=== PATIENT | male | born 1945 | race Caucasian/White ===

== ENCOUNTER 2016-11-04 15:27 | Day surgery (SDC) | payer MEDICARE ==
[~2016-11-04 15:27] MED LIST: EPINEPHRINE INJ 1 MG/10 ML DISP.SYRIN ONE; FENTANYL CITRATE INJ/PF 100 MCG/2 ML AMPUL ONE; FLUMAZENIL INJ 0.5 MG/5 ML VIAL IV ONE; GLUCAGON,HUMAN RECOMB 1 MG INJ ONE; NALOXONE HCL INJ/PF 0.4 MG/1 ML SDV ONE
[2016-11-04] MEDS: MIDAZOLAM 2 MG/2 ML INJ ONE ×2 (16:41→16:45)
--- NOTE | 2016-11-04 17:31 | Operative Report ---
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 The upper endoscope was inserted into the esophagus under direct vision and advanced into the stomach. The duodenum was entered and examined to the second part. Endoscope was then slowly pulled out of the patient as the mucosa was examined into details. Patient tolerated procedure well. Findings Esophagus: There was a 1.5 cm tongue of columnar epithelium noted at the GE junction. This was ablated using the [id number] ablation catheter. 2 rounds of ablation was performed Antrum: Mild erythema with areas of atrophy. Biopsy was taken Body: Erythema with areas of atrophy Fundus: Normal Duodenum first part: Normal Duodenum second part: Normal Plan: Await pathology. Use pantoprazole twice a day, Carafate 4 times a day for the next 1 week and as needed Viscous Lidocaine. Repeat EGD in 2 months OPERATION: .
--- NOTE | 2016-11-04 18:11 | PDOC DISCHARGE SUMMARY ---
Discharge Summary (SDC) - Discharge Final Diagnosis: Saravia's esophagus and gastritis Date of Surgery: 11/04/16 Condition: Stable Forms: Sedation D/C Instructions, Discharge POC-Surgical Service Treatment or Instructions: Prescription for Carafate, viscous lidocaine and increased pantoprazole to twice daily Referrals: AMY BROWN MD [ACTIVE STAFF] - (Follow up with Dr Brown as instructed.) Respiratory Treatments at Home: Deep Breathing/Coughing Discharge Activity: Activity As Tolerated Home Care Assistance: None Needed Report the Following to Your Physician Immediately: Shortness of Breath, Nausea , Vomiting, Increase in Pain, Fever over 101 Degrees, Unusual Bleeding, Increased Soreness, IV Site Infection Signs
[2016-11-04 18:39] VITALS: BP 122/72
--- NOTE | 2016-12-09 17:19 | PDOC H&P ---
History of Present Illness Admission Date/PCP: Admission date 11/04/2016 History of Present Illness: RAMYA ADDISON JR is a 71 year old male who was brought in to endoscopy for EGD with radiofrequency ablation. He was recently diagnosed with short segment Saravia's esophagus indefinite for dysplasia. Past Medical History Cardiac Medical History: Reports: Coronary Artery Disease, Myocardial Infarction Denies: Hypertension - LOW PRESSURE Pulmonary Medical History: Denies: Asthma, Bronchitis, Chronic Obstructive Pulmonary Disease (COPD), Pneumonia Neurological Medical History: Denies: Seizures Musculoskeltal Medical History: Denies: Arthritis Hematology: Reports: Anemia - HX Social History Smoking Status: Former Smoker Family History Parental Family History Reviewed: No Children Family History Reviewed: NA Sibling(s) Family History Reviewed.: NA Medication/Allergy Home Medications: Aspirin [Aspirin 325 mg Tablet] 325 mg PO DAILY 11/03/16 Atorvastatin Calcium 80 mg PO DAILY 11/03/16 Bismuth Subsalicylate [Pepto-Bismol] 1 dose PO DAILY PRN 11/03/16 Calcium Carb/Magnesium Hydrox [Rolaids Chewable Tablet] 2 each PO ASDIR PRN 10/13 Calcium Carbonate [Tums Chewable 500 mg Tab.chew] 500 mg PO ASDIR PRN 11/03/16 Calcium Carbonate/Simethicone [Maalox Advanced Tab Chew] 2 tab.chew PO ASDIR PRN 11/03/16 Clopidogrel Bisulfate [Clopidogrel] 75 mg PO DAILY 11/03/16 Diphenhydramine HCl [Benadryl 25 mg Capsule] 25 mg PO BID 11/03/16 Ferrous Sulfate [Iron] 325 mg PO DAILY 11/03/16 Furosemide [Lasix] 40 mg PO BID 11/03/16 Gabapentin 2 cap PO TID 11/03/16 Insulin Glargine,Hum.rec.anlog [Lantus Solostar] 100 unit SQ DAILY 11/03/16 Liraglutide [Victoza 2-Jay] 1.8 mg SQ DAILY 11/03/16 Losartan Potassium 25 mg PO DAILY 11/03/16 Metformin HCl 500 mg PO BID 11/03/16 Methocarbamol 2 tab PO ASDIR PRN 11/03/16 Metoprolol Succinate 50 mg PO DAILY 11/03/16 Naproxen Sodium [Aleve] 220 mg PO ASDIR PRN 11/03/16 Nitroglycerin 0.4 mg SL ASDIR PRN 11/03/16 Pantoprazole Sodium 40 mg PO DAILY 11/03/16 Potassium Chloride [Klor-Con 10] 20 meq PO BID 11/03/16 Ranitidine HCl [Zantac] 150 mg PO DAILY 11/03/16 Ranolazine [Ranexa] 500 mg PO BID 11/03/16 Tamsulosin HCl 0.4 mg PO DAILY 11/03/16 Allergies/Adverse Reactions: CURAD ADHESIVE Allergy (Mild, Uncoded 11/04/16 15:29) RASHES Review of Systems All systems: reviewed and no additional remarkable complaints except as stated Physical Exam Vital Signs: Temp Pulse Resp BP Pulse Ox 97.5 F 52 L 16 122/72 95 11/04/16 17:20 11/04/16 17:50 11/04/16 17:50 11/04/16 17:50 11/04/16 17:50 Exam: General: Patient is alert and looks well. HEENT: There is no pallor or jaundice. PERRLA. Oropharynx normal Respiratory: No chest deformity. No respiratory distress. Chest wall palpitation was unremarkable. Breath sounds were normal Cardiovascular: Heart sounds 1 and 2 normal with no murmurs. Abdominal: Not distended. Soft and nontender. Liver and spleen not palpable. No ascites demonstrated. Bowel sounds active. Rectal examination was deferred. Extremities: No edema Neurological: Alert and oriented x4. Grossly nonfocal. Normal speech Skin: No significant rash Psychological: Normal affect Assessment & Plan - Diagnosis (1) Saravia's esophagus with dysplasia, unspecified Is this a current diagnosis for this admission?: Yes Plan: There will undergo an EGD with ablation
== END 2016-11-04 18:10 | disposition home or self-care (01) ==
LOC: END 15:27
PROVIDERS: ATTEND Internal Medicine Gastroenterology
PROC: 0DB68ZX Excision of Stomach, Via Natural or Artificial Opening Endoscopic, Diagnostic (ICD-10-PCS; principal; 2016-11-04 16:00)
PROC: 0D558ZZ Destruction of Esophagus, Via Natural or Artificial Opening Endoscopic (ICD-10-PCS; 2016-11-04 16:00)
DX: K22.719 Barrett's esophagus with dysplasia, unspecified (principal); K31.9 Disease of stomach and duodenum, unspecified; I25.10 Atherosclerotic heart disease of native coronary artery without angina pectoris; I25.2 Old myocardial infarction; Z87.891 Personal history of nicotine dependence; Z79.4 Long term (current) use of insulin; Z79.84 Long term (current) use of oral hypoglycemic drugs; Z79.899 Other long term (current) drug therapy
CPT/HCPCS: 43270; 43239; 82962; 88342 ×2; 88305 ×2; J2250; J3010; J0171; J1610; J2310; J3490

== ENCOUNTER 2017-03-10 15:08 | Day surgery (SDC) | payer MEDICARE ==
[2017-03-10] MEDS ORDERED: NALOXONE HCL INJ/PF 0.4 MG/1 ML SDV ONE (15:17)
[2017-03-10] MEDS ORDERED: FENTANYL CITRATE INJ/PF 100 MCG/2 ML AMPUL ONE (15:18)
[2017-03-10] MEDS ORDERED: FLUMAZENIL INJ 0.5 MG/5 ML VIAL ONE (15:18)
[2017-03-10] MEDS ORDERED: GLUCAGON,HUMAN RECOMB 1 MG INJ ONE (15:19)
[2017-03-10] MEDS ORDERED: EPINEPHRINE INJ 1 MG/10 ML DISP.SYRIN ONE (15:19)
[2017-03-10] MEDS ORDERED: ONDANSETRON HCL INJ/PF 4 MG/2 ML SDV ONE (15:20)
[2017-03-10] MEDS: MIDAZOLAM 2 MG/2 ML INJ ONE ×2 (16:27→16:33)
--- NOTE | 2017-03-10 17:09 | Operative Report ---
Operative Report DATE OF SURGERY: 03/10/17 Operative Report: Pre-op diagnosis: History of short segment Saravia's esophagus status post radiofrequency ablation Post-op diagnosis: Normal EGD Surgery: Esophagogastroduodenoscopy with biopsy Medications: Versed 2mg Fentanyl 50mcg IV push Tissue removed: Z line biopsy Procedure: After informed consent obtained from patient, the throat was sprayed with Hurricane and conscious sedation was achieved. The upper endoscope was inserted into the esophagus under direct vision and advanced into the stomach. The duodenum was entered and examined to the second part. Endoscope was then slowly pulled out of the patient as the mucosa was examined into details. Patient tolerated procedure well. Findings Esophagus: Normal Z-line was at 40 cm and appeared normal. Biopsies were taken from along the Z line Antrum: Normal Body: There was large amount of liquid and some food in the stomach suggestive of gastroparesis Fundus: Normal Duodenum first part: Normal Duodenum second part: Normal Plan: Await pathology. Continue PPI OPERATION: .
[2017-03-10 17:41] VITALS: BP 107/62
== END 2017-03-10 17:50 | disposition home or self-care (01) ==
LOC: END 15:08
PROVIDERS: ATTEND Internal Medicine Gastroenterology
PROC: 0DB58ZX Excision of Esophagus, Via Natural or Artificial Opening Endoscopic, Diagnostic (ICD-10-PCS; principal; 2017-03-10 15:30)
DX: K22.70 Barrett's esophagus without dysplasia (principal); K20.9 Esophagitis, unspecified; K21.9 Gastro-esophageal reflux disease without esophagitis; E11.9 Type 2 diabetes mellitus without complications; E78.00 Pure hypercholesterolemia, unspecified; I51.9 Heart disease, unspecified; Z79.84 Long term (current) use of oral hypoglycemic drugs; Z79.4 Long term (current) use of insulin; Z79.899 Other long term (current) drug therapy; Z86.010 Personal history of colon polyps
CPT/HCPCS: 43239; 82962; 88305 ×2; J2250; J3010; J0171; J1610; J2310; J2405; J3490

== ENCOUNTER 2017-06-28 22:22 | Inpatient (IN) | payer OTHER, MEDICARE ==
[2017-06-28] MEDS ORDERED: FUROSEMIDE INJ/PF 40 MG/4 ML SDV IV ONE (22:45)
--- NOTE | 2017-06-28 22:45 | ER Document Report ---
ED General - General Stated Complaint: SHORTNESS OF BREATH Time Seen by Provider: 06/28/17 22:44 Notes: Patient is a 71-year-old male with a past medical history of chronic kidney disease, CHF, coronary artery disease, hypotension, who presents with shortness of breath. Patient reports that for the past 4 days he has had progressively worsening shortness of breath that became acutely much worse over the last 3-4 hours. Symptoms triggered him to call EMS who placed patient on BiPAP, placed Nitropaste and transported him to the hospital. The patient reports that his breathing still does not feel completely normal but is much improved on positive pressure ventilation. He denies any history of similar symptoms in the past. He does note that he has gained 9 pounds of weight in the past 1 week. He continues to take Lasix 40 mg daily and notes medication compliance. He has not seen his primary care doctor regarding today's concerns. He denies any associated fever, chest pain, vomiting, focal weakness or numbness. He does note a dull, constant throbbing pain to his left shoulder since onset of his shortness of breath today. Nothing improves or worsens that symptom. TRAVEL OUTSIDE OF THE [place] IN LAST 30 DAYS: No - Related Data Allergies/Adverse Reactions: CURAD ADHESIVE Allergy (Mild, Uncoded 03/10/17 15:19) RASHES Past Medical History - General Information source: Patient - Social History Smoking Status: Never Smoker Frequency of alcohol use: None Drug Abuse: None Lives with: Spouse/Significant other Family History: Reviewed & Not Pertinent - Past Medical History Cardiac Medical History: Reports: Hx Coronary Artery Disease, Hx Heart Attack Denies: Hx Hypertension - LOW PRESSURE Pulmonary Medical History: Denies: Hx Asthma, Hx Bronchitis, Hx COPD, Hx Pneumonia Neurological Medical History: Denies: Hx Cerebrovascular Accident, Hx Seizures Musculoskeltal Medical History: Denies Hx Arthritis - Immunizations Hx Diphtheria, Pertussis, Tetanus Vaccination: Yes Hx Pneumococcal Vaccination: 03/30/11 Review of Systems - Review of Systems Notes: Constitutional: Negative for fever. HENT: Negative for sore throat. Eyes: Negative for visual changes. Cardiovascular: Negative for chest pain. Respiratory: Positive for shortness of breath. Gastrointestinal: Negative for abdominal pain, vomiting or diarrhea. Genitourinary: Negative for dysuria. Musculoskeletal: Positive for left shoulder pain Skin: Negative for rash. Neurological: Negative for headaches, weakness or numbness. 10 point ROS negative except as marked above and in HPI. Physical Exam - Vital signs Vitals: Resp Pulse Ox 18 99 06/28/17 22:30 06/28/17 22:30 Interpretation: Normal Notes: PHYSICAL EXAMINATION: GENERAL: Appears unwell, in moderate respiratory distress HEAD: Atraumatic, normocephalic. EYES: Pupils equal round and reactive to light, extraocular movements intact, sclera anicteric, conjunctiva are normal. ENT: nares patent, oropharynx clear without exudates. Mildly dry mucous membranes. NECK: Normal range of motion, supple without lymphadenopathy LUNGS: Crackles at the bases bilaterally. Moderate respiratory distress breathing approximately 20-30 times a minute. HEART: Regular tachycardia without murmurs ABDOMEN: Soft, nontender, normoactive bowel sounds. No guarding, no rebound. No masses appreciated. EXTREMITIES: Normal range of motion, 2+ pitting edema that is equal and symmetric in bilateral lower extremity some level of the knee NEUROLOGICAL: No focal neurological deficits. Moves all extremities spontaneously and on command. PSYCH: Normal mood, normal affect. SKIN: Warm, Dry, normal turgor, no rashes or lesions noted. Course - Re-evaluation Re-evalutation: 06/28/17 22:44 Patient presents in acute respiratory distress likely secondary to pulmonary edema as he has gained 9 pounds of weight in less than 1 week with a known history of CHF. On BiPAP patient's work of breathing is much improved current settings 12 on 6 with 35% FiO2. Patient has slightly diminished breath sounds at the bases bilaterally, scattered rales throughout. He denies any chest pain but does complain of some left shoulder pain. EKG without ischemic changes. Will proceed with labs, chest x-ray, continue on BiPAP, continue Nitropaste that is ready in place, give IV furosemide, and reassess frequently. Patient is critically ill at this time. 06/29/17 2300 Patient continues to have significantly improved work of breathing on BiPAP. Currently saturating 94% on the above settings. Will continue to monitor closely. 0010- Labs have returned showing elevated pro-BNP, CXR shows pulmonary edema consistent with the patient's presentation. Blood pressure remains within acceptable limits at this time point. Troponin is normal. Patient continues to be without chest pain, states the left shoulder pain has resolved. 0100-I will discuss this case with the hospitalist for admission as patient - Vital Signs Vital signs: Temp Pulse Resp BP Pulse Ox 18 99 06/28/17 22:30 06/28/17 22:30 - Laboratory Result Diagrams: 06/28/17 22:50 06/28/17 22:50 Laboratory results interpreted by me: 06/28/17 06/28/17 06/28/17 22:50 22:50 22:50 RBC 3.82 L Hgb 12.2 L Hct 37.2 L RDW 15.5 H Plt Count 120 L Seg Neutrophils % 88.2 H Lymphocytes % 5.2 L Absolute Lymphocytes 0.4 L Carbon Dioxide 31 H BUN 37 H Creatinine 1.39 H Est GFR (Non-Af Amer) 51 L Glucose 266 H NT-Pro-B Natriuret Pep 2890 H Total Protein 6.2 L Urine Glucose (UA) 06/29/17 00:19 RBC Hgb Hct RDW Plt Count Seg Neutrophils % Lymphocytes % Absolute Lymphocytes Carbon Dioxide BUN Creatinine Est GFR (Non-Af Amer) Glucose NT-Pro-B Natriuret Pep Total Protein Urine Glucose (UA) 150 H - Diagnostic Test Radiology reviewed: Image reviewed, Reports reviewed Radiology results interpreted by me: 06/29/17 01:13 Chest x-ray: Pulmonary edema bilaterally - EKG Interpretation by Me Additional EKG results interpreted by me: 06/29/17 01:13 Sinus rhythm. Rate 70. No ST elevations or depressions. QTC is 445. Critical Care Note - Critical Care Note Total time excluding time spent on procedures (mins): 36 Comments: Critical care time spent obtaining history from patient or surrogate, discussions with consultants, development of treatment plan with patient or surrogate, evaluation of patient's response to treatment, examination of patient , ordering and performing treatments and interventions, ordering and review of laboratory studies, re-evaluation of patient's condition, ordering and review of radiographic studies and review of old charts Discharge - Discharge Clinical Impression: Respiratory distress CHF exacerbation Qualifiers: Heart failure type: unspecified Qualified Code(s): I50.9 - Heart failure, unspecified Pulmonary edema Qualifiers: Chronicity: acute Qualified Code(s): J81.0 - Acute pulmonary edema Condition: Fair Disposition: ADMITTED INPATIENT Admitting Provider: Hospitalist - [place] [facility] Admitted: Telemetry
--- NOTE | 2017-06-28 22:53 | RADIOLOGY REPORT (SQ) ---
EXAM DESCRIPTION: CHEST SINGLE VIEW CLINICAL HISTORY: 71 years Male, shortness of breath COMPARISON: None. NUMBER OF VIEWS/TECHNIQUE: 1/AP LIMITATIONS: None. FINDINGS: Moderate interstitial markings, normal cardiac silhouette, and median sternotomy. IMPRESSION: Moderate interstitial markings; differential diagnosis includes pulmonary edema, atypical pneumonitis, and chronic interstitial lung disease.
[2017-06-28 23:09] LABS: ABSOLUTE LYMPHOCYTES (AUTO) 0.4 10^3/uL (0.5-4.7); ABSOLUTE MONOCYTES (AUTO) 0.4 10^3/uL (0.1-1.4); ABSOLUTE NEUT (AUTO) 6.3 10^3/uL (1.7-8.2); BASOPHILS % (AUTO) 0.1 % (0-2); EOSINOPHILS % (AUTO) 0.3 % (0-6); HEMATOCRIT 37.2 % (37.9-51.0); HEMOGLOBIN 12.2 g/dL (13.5-17.0); LYMPHOCYTES % (AUTO) 5.2 % (13-45); MEAN CORPUSCULAR HGB CONC 32.9 g/dL (32.0-36.0); MEAN CORPUSCULAR VOLUME 97 fl (80-97); MONOCYTES % (AUTO) 6.2 % (3-13); PLATELET COUNT 120 10^3/uL (150-450); RED BLOOD COUNT 3.82 10^6/uL (4.35-5.55); RED CELL DISTRIBUTION WIDTH 15.5 % (11.5-14.0); SEGMENTED NEUTROPHILS % (AUTO) 88.2 % (42-78); TOTAL CELLS COUNTED % (AUTO) 100 %; WHITE BLOOD COUNT 7.1 10^3/uL (4.0-10.5)
[2017-06-28 23:29] LABS: ALANINE AMINOTRANSFERASE 25 U/L (21-72); ALBUMIN 4.1 g/dL (3.5-5.0); ALKALINE PHOSPHATASE 74 U/L (38-126); ANION GAP 10 (5-19); ASPARTATE AMINO TRANSFERASE 21 U/L (17-59); BILIRUBIN,DIRECT 0.3 mg/dL (0.0-0.4); BILIRUBIN,TOTAL 0.3 mg/dL (0.2-1.3); BLOOD UREA NITROGEN 37 mg/dL (7-20); CALCIUM 9.2 mg/dL (8.4-10.2); CARBON DIOXIDE 31 mmol/L (22-30); CHLORIDE 100 mmol/L (98-107); CREATINE KINASE 135 U/L (55-170); GLUCOSE 266 mg/dL (75-110); POTASSIUM 4.4 mmol/L (3.6-5.0); TOTAL PROTEIN 6.2 g/dL (6.3-8.2)
[2017-06-28 23:42] LABS: CREATINE KINASE MB 1.49 ng/mL (<4.55); NT PRO BNP 2890 pg/mL (5-900)
[2017-06-28 23:44] LABS: TROPONIN I < 0.012 ng/mL
[2017-06-29 01:05] LABS: APPEARANCE,URINE CLEAR; BILIRUBIN,URINE NEGATIVE (NEGATIVE); COLOR,URINE YELLOW; GLUCOSE, URINE 150 mg/dL (NEGATIVE); KETONES,URINE NEGATIVE (NEGATIVE); LEUKOCYTE ESTERASE,URINE NEGATIVE (NEGATIVE); NITRITE,URINE NEGATIVE (NEGATIVE); PROTEIN,URINE NEGATIVE (NEGATIVE); URINE SPECIFIC GRAVITY 1.022; UROBILINOGEN,URINE NEGATIVE mg/dL (<2.0)
[2017-06-29] MEDS ORDERED: ENALAPRILAT DIHYDRATE INJ/PF 1.25 MG/1 ML SDV IV PRN (01:15)
[2017-06-29] MEDS ORDERED: DEXTROSE 40% GEL 15 GM TUBE PO PRN ×2 (01:15)
[2017-06-29] MEDS ORDERED: DEXTROSE 50%-WATER 25 GM/50 ML DISP.SYRIN IV PRN ×2 (01:15)
[2017-06-29] MEDS ORDERED: MAG HYDROX/AL HYDROX/SIMETH SUSP 30 ML UDCUP PO PRN (01:15)
[2017-06-29] MEDS ORDERED: GLUCAGON,HUMAN RECOMB 1 MG INJ IM PRN (01:15)
[2017-06-29] MEDS ORDERED: ATORVASTATIN CALCIUM 80 MG TABLET PO ONE ×2 (02:00→05:45)
[2017-06-29] MEDS ORDERED: TAMSULOSIN HCL 0.4 MG CAP.SR.24H PO ONE ×2 (02:00→06:00)
[2017-06-29 02:17] LABS: CREATINE KINASE MB 1.34 ng/mL (<4.55); TROPONIN I 0.015 ng/mL
--- NOTE | 2017-06-29 05:11 | EKG REPORT ---
SEVERITY:- ABNORMAL ECG - SINUS RHYTHM LOW VOLTAGE IN FRONTAL LEADS BORDERLINE R WAVE PROGRESSION, ANTERIOR LEADS NONSPECIFIC ST-T CHANGES LATERAL LEADS : Confirmed by: Lalo Keller MD 29-Jun-2017 05:11:22
[2017-06-29] MEDS: HEPARIN SOD (PORCINE) 5,000 UNIT/ML 1 ML SYRINGE SUBCUT SCH ×3 (05:28→21:36)
[2017-06-29 08:15] LABS: CREATINE KINASE MB 1.07 ng/mL (<4.55); TROPONIN I 0.026 ng/mL
[2017-06-29] MEDS ORDERED: ALBUTEROL SULFATE 0.083% NEB 2.5 MG/3 ML AMPUL NEB PRN (08:39)
[2017-06-29] MEDS ORDERED: BENZONATATE 100 MG CAPSULE PO PRN (08:42)
[2017-06-29] MEDS ORDERED: LOSARTAN POTASSIUM 25 MG TABLET PO SCH ×2 (10:00)
[2017-06-29] MEDS ORDERED: FUROSEMIDE INJ/PF 40 MG/4 ML SDV IV SCH (10:00)
[2017-06-29] MEDS: METOPROLOL SUCCINATE 50 MG TAB.SR.24H PO SCH (10:24)
[2017-06-29] MEDS: GABAPENTIN 300 MG CAPSULE PO SCH ×3 (10:24→18:47)
[2017-06-29] MEDS: LOSARTAN POTASSIUM 50 MG TABLET PO SCH (10:24)
[2017-06-29] MEDS: AMLODIPINE BESYLATE 5 MG TABLET PO SCH (10:24)
[2017-06-29] MEDS: AZITHROMYCIN 250 MG TABLET PO SCH (10:25)
[2017-06-29] MEDS: POTASSIUM CHLORIDE 10 MEQ TABLET.SA PO SCH ×2 (10:25→18:48)
[2017-06-29] MEDS: CLOPIDOGREL BISULFATE 75 MG TABLET PO SCH (10:26)
[2017-06-29] MEDS: ASPIRIN 325 MG TABLET PO SCH (10:26)
[2017-06-29] MEDS: LANSOPRAZOLE 30 MG TAB.RAP.DR PO SCH ×2 (10:27→18:47)
[2017-06-29] MEDS: GUAIFENESIN 600 MG TABLET.SA PO SCH ×2 (10:27→21:31)
[2017-06-29] MEDS: FUROSEMIDE INJ/PF 40 MG/4 ML SDV IV SCH ×2 (10:27→21:31)
[2017-06-29] MEDS: DOCUSATE SODIUM 100 MG CAPSULE PO SCH (10:33)
[2017-06-29] MEDS: NICOTINE 14 MG/24 HR PATCH.TD24 TD SCH (10:33)
--- NOTE | 2017-06-29 13:40 | PDOC PROGRESS REPORT ---
Subjective Progress Note for:: 06/29/17 Subjective:: Patient complains of shortness of breath. He admits having sleep apnea and not using the CPAP. Patient states that he feels congested in the chest but is not able to sleep bring the phlegm up. Review of systems All organ systems evaluated and negative except as seen subjective All significant laboratories and diagnostics have been reviewed Reason For Visit: HEART FAILURE EXACERBATION Physical Exam Vital Signs: Temp Pulse Resp BP Pulse Ox 23 H 129/63 H 93 06/29/17 07:01 06/29/17 07:01 06/29/17 07:01 Intake & Output 06/28/17 06/29/17 06/30/17 06:59 06:59 06:59 Weight 70.76 kg General appearance: PRESENT: cooperative, morbidly obese Head exam: PRESENT: atraumatic, normocephalic Eye exam: PRESENT: conjunctiva pink, EOMI, PERRLA Ear exam: PRESENT: normal external ear exam Mouth exam: PRESENT: moist Neck exam: PRESENT: full ROM. ABSENT: JVD, lymphadenopathy, tenderness Respiratory exam: PRESENT: crackles, decreased breath sounds. ABSENT: tachypnea , unlabored Cardiovascular exam: PRESENT: RRR. ABSENT: diastolic murmur, systolic murmur Vascular exam: PRESENT: normal capillary refill GI/Abdominal exam: PRESENT: normal bowel sounds, soft. ABSENT: tenderness Extremities exam: PRESENT: full ROM, +1 edema Musculoskeletal exam: PRESENT: ambulatory Neurological exam: PRESENT: alert, oriented to person, oriented to place, oriented to time, oriented to situation, CN II-XII grossly intact Psychiatric exam: PRESENT: unusual affect Skin exam: PRESENT: intact, normal color Results Impressions: Chest X-Ray 06/28/17 22:27 IMPRESSION: Moderate interstitial markings; differential diagnosis includes pulmonary edema, atypical pneumonitis, and chronic interstitial lung disease. Assessment & Plan - Diagnosis (1) COPD exacerbation Is this a current diagnosis for this admission?: Yes Plan: Patient will be placed on duo nebs, IV steroids, Mucinex and Zithromax (2) CHF exacerbation Qualifiers: Heart failure type: unspecified Qualified Code(s): I50.9 - Heart failure, unspecified Is this a current diagnosis for this admission?: Yes Plan: Will continue diuresis however suspect findings may relate to pulmonary hypertension. Echocardiogram has been ordered. Will order a CT of the chest to evaluate for pulmonary fibrosis (3) Obese abdomen Is this a current diagnosis for this admission?: Yes (4) Sleep apnea Qualifiers: Sleep apnea type: obstructive Qualified Code(s): G47.33 - Obstructive sleep apnea (adult) (pediatric) Is this a current diagnosis for this admission?: Yes Plan: Patient refuses use of CPAP at home. Patient is also not amenable to teaching - Time Time Spent with patient: 15-24 minutes Medications reviewed and adjusted accordingly: Yes Anticipated discharge: Home with Homehealth Within: within 72 hours - Inpatient Certification Based on my medical assessment, after consideration of the patient's comorbidities, presenting symptoms, or acuity I expect that the services needed warrant INPATIENT care.: Yes I certify that my determination is in accordance with my understanding of Medicare's requirements for reasonable and necessary INPATIENT services [42 CFR 412.3e].: Yes Medical Necessity: Need Close Monitoring Due to Risk of Patient Decompensation, Need For Continuous Telemetry Monitoring
[2017-06-29] MEDS: IPRATROPIUM/ALBUTEROL 0.5-2.5 MG/3 ML AMPUL NEB SCH ×2 (14:07→19:54)
[2017-06-29] MEDS: METHYLPREDNISOLONE INJ 40 MG/1 ML SDV IV SCH ×2 (14:56→21:31)
[2017-06-29 16:02] LABS: TROPONIN I 0.032 ng/mL
[2017-06-29] MEDS: TAMSULOSIN HCL 0.4 MG CAP.SR.24H PO SCH (21:30)
[2017-06-29] MEDS: ATORVASTATIN CALCIUM 80 MG TABLET PO SCH (21:31)
[2017-06-30 05:41] LABS: ABSOLUTE LYMPHOCYTES (AUTO) 0.4 10^3/uL (0.5-4.7); ABSOLUTE MONOCYTES (AUTO) 0.2 10^3/uL (0.1-1.4); ABSOLUTE NEUT (AUTO) 4.3 10^3/uL (1.7-8.2); BASOPHILS % (AUTO) 0.2 % (0-2); HEMATOCRIT 34.9 % (37.9-51.0); HEMOGLOBIN 11.4 g/dL (13.5-17.0); LYMPHOCYTES % (AUTO) 8.4 % (13-45); MEAN CORPUSCULAR HEMOGLOBIN 31.8 pg (27.0-33.4); MEAN CORPUSCULAR HGB CONC 32.7 g/dL (32.0-36.0); MEAN CORPUSCULAR VOLUME 97 fl (80-97); MONOCYTES % (AUTO) 4.1 % (3-13); PLATELET COUNT 103 10^3/uL (150-450); RED BLOOD COUNT 3.58 10^6/uL (4.35-5.55); RED CELL DISTRIBUTION WIDTH 15.8 % (11.5-14.0); SEGMENTED NEUTROPHILS % (AUTO) 87.3 % (42-78); TOTAL CELLS COUNTED % (AUTO) 100 %; WHITE BLOOD COUNT 4.9 10^3/uL (4.0-10.5)
[2017-06-30 06:04] LABS: ALANINE AMINOTRANSFERASE 34 U/L (21-72); ALBUMIN 3.5 g/dL (3.5-5.0); ALKALINE PHOSPHATASE 62 U/L (38-126); ANION GAP 10 (5-19); ASPARTATE AMINO TRANSFERASE 25 U/L (17-59); BILIRUBIN,DIRECT 0.4 mg/dL (0.0-0.4); BILIRUBIN,TOTAL 0.4 mg/dL (0.2-1.3); BLOOD UREA NITROGEN 39 mg/dL (7-20); CALCIUM 8.8 mg/dL (8.4-10.2); CARBON DIOXIDE 24 mmol/L (22-30); CHLORIDE 109 mmol/L (98-107); CHOLESTEROL 118.52 mg/dL (0-200); GLUCOSE 174 mg/dL (75-110); POTASSIUM 4.4 mmol/L (3.6-5.0); SODIUM 142.5 mmol/L (137-145); TRIGLYCERIDES 65 mg/dL (<150)
[2017-06-30 06:15] LABS: DIRECT LDL 50 mg/dL (<100)
[2017-06-30] MEDS: HEPARIN SOD (PORCINE) 5,000 UNIT/ML 1 ML SYRINGE SUBCUT SCH ×3 (06:42→21:38)
[2017-06-30] MEDS: METHYLPREDNISOLONE INJ 40 MG/1 ML SDV IV SCH ×3 (06:44→21:30)
--- NOTE | 2017-06-30 08:26 | Physician Advisory Note ---
Physician Advisor ProgressNote .: Pursuant to the plan for [facility], I have reviewed the medical record for this patient. Physician Advisor Statement: Nice documentation of the s/s of acute ___ CHF: acute pulmonary edema on CXR, SOB, crackles. - Nurses have also documented (+)WOOD, & orthopnea. Please consider documenting, if you agree: 1. "Acute Hypoxemic Respiratory Failure, due to ____, evidenced by labored breathing, tachypnea, & hypoxemia" (EMS found sat 88%, put on Bipap w/30% FiO2) 2. Status: pt not responding quickly to IV Lasix/Bipap, still SOB w/chest congestion, crackles, decreased BS, edema, tachypnea after 1 night of hospital level care. Appropriate for change to Inpatient status. 3. (I know you'll list "Acute ___ CHF", pulmonary HTN/pulmonary fibrosis if present based on ECHO/CT reports, as they become available.) Thanks, & have a great day! CK
[2017-06-30] MEDS: IPRATROPIUM/ALBUTEROL 0.5-2.5 MG/3 ML AMPUL NEB SCH ×3 (08:35→19:51)
--- NOTE | 2017-06-30 08:58 | RADIOLOGY REPORT (SQ) ---
EXAM DESCRIPTION: CT CHEST WITH COMPLETED DATE/TIME: 06/29/2017 7:41 pm REASON FOR STUDY: evaluate for interstitial lung disease COMPARISON: CT chest 06/28/2017 TECHNIQUE: CT scan of the chest performed using helical scanning technique with dynamic intravenous contrast injection. Images reviewed with lung, soft tissue and bone windows. Reconstructed coronal and sagittal MPR images reviewed. All images stored on PACS. All CT scanners at this facility use dose modulation, iterative reconstruction, and/or weight based d osing when appropriate to reduce radiation dose to as low as reasonably achievable (ALARA). [facility]: Dose Right [facility]: CareDose [facility]: Dose Right [facility]: Teradose 4D [facility]: [employer] CONTRAST TYPE AND DOSE: contrast/concentration: Isovue 370.00 mg/ml; Total Contrast Delivered: 75.0 ml; Total Saline Delivered: 50.0 ml RENAL FUNCTION: Creatinine 1.4 RADIATION DOSE: CT Rad equipment meets quality standard of care and radiation dose reduction techniq ues were employed. CTDIvol: 20.6 mGy. DLP: 868 mGy-cm. . LIMITATIONS: None. FINDINGS: LUNGS AND PLEURA: No acute infiltrates. No pleural effusions or pneumothorax. No definit e increased interstitial markings around the periphery of the lungs to suggest pulmonary fibrosis. 4 mm pleural-based noncalcified nodule posterior left lower lobe image 33. 1 year follow-up chest CT without contrast recommended to exclude growth or change in this probably benign finding. HILAR AND MEDIASTINAL STRUCTURES: No identified masses or abnormal nodes. HEART AND VASCULAR STRUCTURES: No aneurysm or dissection. No central pulmonary emboli. No pericardi al effusion. Post sternotomy and CABG. Very heavily radiopaque [place] coronary arteries from and ca lcifications HARDWARE: None in the chest. UPPER ABDOMEN: About 50% narrowing of the proximal SMA and celiac artery from arterial vascular visce ral calcifications. Fat density 2.5 cm left adrenal nodule, benign THYROID AND OTHER SOFT TISSUES: No masses. No adenopathy. BONES: No significant finding. OTHER: No other significant finding. IMPRESSION: No findings worrisome for interstitial lung disease. 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
--- NOTE | 2017-06-30 09:21 | XCELERA REPORT ---
[address] [address] Transthoracic Echocardiogram Report Name: RAMYA ADDISONJR Age: 71 yrs Gender: Male : 1945 Patient Status: Inpatient Patient Location: [address] [place] [address] Study Date: 06/29/2017 12:50 PM Height: 66 in Weight: 251 lb BSA: 2.2 m2 Procedure: A complete two-dimensional transthoracic echocardiogram was performed (2D, M-mode, spectral and color flow Doppler). The study was technically difficult with many images being suboptimal in quality. The study was technically limited with all images being suboptimal in quality. Reason For Study: volume overload Ordering Physician: CRISTIAN TEIXEIRA Performed By: Edith Orourke Interpretation Summary The study was technically difficult with many images being suboptimal in quality. The study was technically limited with all images being suboptimal in quality. Due to the poor quality of the echocardiogram, an assessment of left ventricular ejection fraction cannot be made. Consider additional methods to assess LVEF such as MUGA scan, CTA heart, cardiac MRI, EVERTON, etc. if clinically indicated. Best estimate mild depressed LV diastolic function could not be adequately assessed. Regional wall motion abnormalities cannot be excluded due to limited visualization. The right ventricle is not well visualized secondary to technical limitations Borderline right atrial enlargement. The left atrium is moderately dilated. There is no mitral regurgitation noted. There is no mitral valve stenosis. There is no aortic valve stenosis No aortic regurgitation is present. There is a trace or physiologic amount of tricuspid regurgitation Tricuspid regurgitation jet envelope not well defined to measure RV systolic pressure accurately. The pulmonic valve is not well visualized. The aortic root is not well visualized. The inferior vena cava appeared normal and decreased < 50% with respiration (RAP 10-15 mmHg) There is no pericardial effusion. MMode/2D Measurements & Calculations RVDd: 3.1 cm LVIDd: 5.6 cmFS: 24.3 % Ao root diam: 3.2 cm IVSd: 1.0 cm LVIDs: 4.3 cmEDV(Teich): 156.4 ml LVPWd: 1.0 cmESV(Teich): 81.8 ml Ao root area: 8.3 cm2 EF(Teich): 47.7 % LVOT diam: 2.0 cm LVOT area: 3.3 cm2 Doppler Measurements & Calculations MV E max qamar: MV dec slope: Ao V2 max: LV V1 max P.9 cm/sec 515.5 cm/sec2 148.3 cm/sec 4.4 mmHg MV A max qamar: MV dec time: Ao max PG: LV V1 max: 55.2 cm/sec 0.23 sec 8.8 mmHg 104.4 cm/sec MV E/A: 2.2 MIGUELANGEL(V,D): 2.3 cm2 PA V2 max: TR max qamar: 68.5 cm/sec 229.3 cm/sec PA max P.9 mmHgTR max P.2 mmHg Left Ventricle The left ventricle is borderline dilated. There is borderline concentric left ventricular hypertrophy. Due to the poor quality of the echocardiogram, an assessment of left ventricular ejection fraction cannot be made. Best estimate mild depressed. Consider additional methods to assess LVEF such as MUGA scan, CTA heart, cardiac MRI, EVERTON, etc. if clinically indicated. LV diastolic function could not be adequately assessed. Regional wall motion abnormalities cannot be excluded due to limited visualization. Right Ventricle The right ventricle is not well visualized secondary to technical limitations. Atria Borderline right atrial enlargement. The left atrium is moderately dilated. Interarterial septum not well visualized and not well dopplered. Cannot comment on ASD/PFO presence. Mitral Valve The mitral valve is not well visualized. There is no mitral valve stenosis. There is no mitral regurgitation noted. Aortic Valve The aortic valve is not well visualized secondary to technical limitations. There is no aortic valve stenosis. No aortic regurgitation is present. Tricuspid Valve The tricuspid valve is not well visualized secondary to technical limitations. There is no tricuspid stenosis. There is a trace or physiologic amount of tricuspid regurgitation. Tricuspid regurgitation jet envelope not well defined to measure RV systolic pressure accurately. Pulmonic Valve The pulmonic valve is not well visualized. Great Vessels The aortic root is not well visualized. The inferior vena cava appeared normal and decreased < 50% with respiration (RAP 10-15 mmHg). Effusions There is no pericardial effusion. : CRISTIAN TEIXEIRA > [place]
[2017-06-30] MEDS: GABAPENTIN 300 MG CAPSULE PO SCH ×3 (09:41→17:17)
[2017-06-30] MEDS: DOCUSATE SODIUM 100 MG CAPSULE PO SCH (09:41)
[2017-06-30] MEDS: LANSOPRAZOLE 30 MG TAB.RAP.DR PO SCH ×2 (09:41→17:18)
[2017-06-30] MEDS: CLOPIDOGREL BISULFATE 75 MG TABLET PO SCH (09:41)
[2017-06-30] MEDS: GUAIFENESIN 600 MG TABLET.SA PO SCH ×2 (09:42→21:30)
[2017-06-30] MEDS: POTASSIUM CHLORIDE 10 MEQ TABLET.SA PO SCH ×2 (09:43→17:18)
[2017-06-30] MEDS: LOSARTAN POTASSIUM 50 MG TABLET PO SCH (09:43)
[2017-06-30] MEDS: AMLODIPINE BESYLATE 5 MG TABLET PO SCH (09:43)
[2017-06-30] MEDS: FUROSEMIDE INJ/PF 40 MG/4 ML SDV IV SCH ×2 (09:44→21:35)
[2017-06-30] MEDS: METOPROLOL SUCCINATE 50 MG TAB.SR.24H PO SCH (09:44)
[2017-06-30] MEDS: AZITHROMYCIN 250 MG TABLET PO SCH (09:44)
[2017-06-30] MEDS: NICOTINE 14 MG/24 HR PATCH.TD24 TD SCH (09:45)
[2017-06-30] MEDS: ASPIRIN 325 MG TABLET PO SCH (09:45)
[2017-06-30] MEDS: NITROGLYCERIN 0.4 MG/TAB 25 TAB/BOTTLE SL PRN ×3 (10:45→11:00)
[2017-06-30] MEDS ORDERED: ISOSORBIDE MONONITRATE 30 MG TAB.ER.24H PO ONE (11:00)
[2017-06-30] MEDS ORDERED: MAG HYDROX/AL HYDROX/SIMETH SUSP 30 ML UDCUP PO ONE (15:30)
[2017-06-30] MEDS ORDERED: LIDOCAINE 2% VISCOUS SOLN 20 ML UDCUP PO ONE (15:30)
[2017-06-30] MEDS ORDERED: METOCLOPRAMIDE HCL ORAL SOLN 10 MG/10 ML UDCUP PO ONE (15:30)
[2017-06-30] MEDS ORDERED: NORMAL SALINE 500 ML IV ONE (16:00)
[2017-06-30] MEDS ORDERED: MORPHINE SULFATE 10 MG/ML INJ IV ONE (16:00)
[2017-06-30 16:20] LABS: CREATINE KINASE MB 1.24 ng/mL (<4.55); TROPONIN I 0.015 ng/mL
[2017-06-30] MEDS ORDERED: TRAMADOL HCL 50 MG TABLET PO PRN (16:27)
--- NOTE | 2017-06-30 17:16 | PDOC PROGRESS REPORT ---
Subjective Progress Note for:: 06/30/17 Subjective:: Patient relates that breathing is better. He stated that the phlegm was starting to come up. Later on complained to the nurse that when going to the bathroom he was having chest pain. At that time he was not using the oxygen. He also stated to the nurse that he uses nitroglycerin frequently at home. He had 2 bouts of shortness of breath. Review of systems All organ systems evaluated and negative except as seen subjective All significant laboratories and diagnostics have been reviewed Reason For Visit: HEART FAILURE EXACERBATION Physical Exam Vital Signs: Temp Pulse Resp BP Pulse Ox 98.4 F 63 21 H 125/47 L 96 06/30/17 03:37 06/30/17 03:37 06/30/17 03:37 06/30/17 03:37 06/30/17 03:37 Intake & Output 06/29/17 06/30/17 07/01/17 06:59 06:59 06:59 Intake Total 463 Output Total 1650 Balance -1187 Weight 113.7 kg General appearance: PRESENT: cooperative, morbidly obese Head exam: PRESENT: atraumatic, normocephalic Eye exam: PRESENT: conjunctiva pink, EOMI, PERRLA Ear exam: PRESENT: normal external ear exam Neck exam: PRESENT: carotid bruit. ABSENT: JVD, lymphadenopathy, tenderness Respiratory exam: PRESENT: crackles, decreased breath sounds Cardiovascular exam: PRESENT: RRR. ABSENT: diastolic murmur, systolic murmur Vascular exam: PRESENT: normal capillary refill GI/Abdominal exam: PRESENT: normal bowel sounds, soft. ABSENT: tenderness Extremities exam: PRESENT: full ROM, +1 edema Musculoskeletal exam: PRESENT: ambulatory Neurological exam: PRESENT: alert, awake, oriented to person, oriented to place , oriented to time, oriented to situation, CN II-XII grossly intact Psychiatric exam: PRESENT: appropriate affect, normal mood Skin exam: PRESENT: intact, normal color Results Laboratory Results: 06/30/17 04:34 06/30/17 04:34 06/30/17 06/30/17 04:34 04:34 WBC 4.9 RBC 3.58 L Hgb 11.4 L Hct 34.9 L MCV 97 MCH 31.8 MCHC 32.7 RDW 15.8 H Plt Count 103 L Seg Neutrophils % 87.3 H Lymphocytes % 8.4 L Monocytes % 4.1 Eosinophils % 0.0 Basophils % 0.2 Absolute Neutrophils 4.3 Absolute Lymphocytes 0.4 L Absolute Monocytes 0.2 Absolute Eosinophils 0.0 Absolute Basophils 0.0 Sodium 142.5 Potassium 4.4 Chloride 109 H Carbon Dioxide 24 Anion Gap 10 BUN 39 H Creatinine 1.20 Est GFR ( Amer) > 60 Est GFR (Non-Af Amer) > 60 Glucose 174 H Calcium 8.8 Magnesium 2.4 H Total Bilirubin 0.4 AST 25 ALT 34 Alkaline Phosphatase 62 Total Protein 6.0 L Albumin 3.5 Triglycerides 65 Cholesterol 118.52 LDL Cholesterol Direct 50 VLDL Cholesterol 13.0 HDL Cholesterol 47 06/29/17 06/29/17 06/29/17 07:38 07:38 14:53 Creatine Kinase 162 150 CK-MB (CK-2) 1.07 Troponin I 0.026 06/29/17 14:53 Creatine Kinase CK-MB (CK-2) 1.00 Troponin I 0.032 Impressions: Chest X-Ray 06/28/17 22:27 IMPRESSION: Moderate interstitial markings; differential diagnosis includes pulmonary edema, atypical pneumonitis, and chronic interstitial lung disease. Assessment & Plan - Diagnosis (1) COPD exacerbation Is this a current diagnosis for this admission?: Yes Plan: Patient will be placed on duo nebs, IV steroids, Mucinex and discontinue zithromax and change to levaquin in the vent may be causing GI upset (2) CHF exacerbation Qualifiers: Heart failure type: unspecified Qualified Code(s): I50.9 - Heart failure, unspecified Is this a current diagnosis for this admission?: Yes Plan: Will continue diuresis however suspect findings may relate to pulmonary hypertension. Echocardiogram has been on to terminate due to body habitus. CT of the chest noted. Will add midodrine since blood pressure on the low side (3) Obese abdomen Is this a current diagnosis for this admission?: Yes Plan: Contributing to hypoventilatory syndrome (4) Sleep apnea Qualifiers: Sleep apnea type: obstructive Qualified Code(s): G47.33 - Obstructive sleep apnea (adult) (pediatric) Is this a current diagnosis for this admission?: Yes Plan: Patient refuses use of CPAP at home. Patient is also not amenable to teaching (5) Acute hypoxemic respiratory failure Is this a current diagnosis for this admission?: Yes Plan: Continue oxygen supplementation and wean off as tolerated (6) Chest pain Qualifiers: Chest pain type: precordial pain Qualified Code(s): R07.2 - Precordial pain Is this a current diagnosis for this admission?: Yes Plan: Order troponins 3 and nuclear stress test in a.m. (7) GERD (gastroesophageal reflux disease) Qualifiers: Esophagitis presence: esophagitis presence not specified Qualified Code(s) : K21.9 - Gastro-esophageal reflux disease without esophagitis Is this a current diagnosis for this admission?: Yes Plan: Continue PPI (8) Superior mesenteric artery atherosclerosis Is this a current diagnosis for this admission?: Yes Plan: Likely may be contributing to complaints. He will need to be evaluated by the vascular surgeon once improving respiratory status - Time Time Spent with patient: 25-34 minutes Medications reviewed and adjusted accordingly: Yes Anticipated discharge: Home with Homehealth Within: within 72 hours - Inpatient Certification Based on my medical assessment, after consideration of the patient's comorbidities, presenting symptoms, or acuity I expect that the services needed warrant INPATIENT care.: Yes I certify that my determination is in accordance with my understanding of Medicare's requirements for reasonable and necessary INPATIENT services [42 CFR 412.3e].: Yes Medical Necessity: Need Close Monitoring Due to Risk of Patient Decompensation, Need For Continuous Telemetry Monitoring, Need for Nebulizer Therapy and Monitoring of Response, Need for IV Antibiotics
[2017-06-30] MEDS: RANOLAZINE 500 MG TAB.SR.12H PO SCH (17:18)
[2017-06-30] MEDS ORDERED: AMLODIPINE BESYLATE 5 MG TABLET PO SCH (17:34)
[2017-06-30] MEDS ORDERED: MIDODRINE HCL 5 MG TABLET PO SCH (18:00)
[2017-06-30] MEDS: INSULIN LISPRO 100 UNIT/ML 3 ML VIAL SUBCUT PRN (18:06)
--- NOTE | 2017-06-30 19:11 | PDOC TRANSFER SUMMARY ---
General Admission Date/PCP: 06/30/17 11:17 Admission Date: 06/29/17 Resuscitation Status: Full Code - Transfer Diagnosis (1) Unstable angina pectoris due to coronary arteriosclerosis Is this a current diagnosis for this admission?: Yes (2) CHF exacerbation Is this a current diagnosis for this admission?: Yes (3) Acute hypoxemic respiratory failure Is this a current diagnosis for this admission?: Yes (4) COPD exacerbation Is this a current diagnosis for this admission?: Yes (5) Obese abdomen Is this a current diagnosis for this admission?: Yes (6) Sleep apnea Is this a current diagnosis for this admission?: Yes (7) GERD (gastroesophageal reflux disease) Is this a current diagnosis for this admission?: Yes (8) Superior mesenteric artery atherosclerosis Is this a current diagnosis for this admission?: Yes (9) Diabetes Is this a current diagnosis for this admission?: Yes (10) CAD (coronary artery disease) Is this a current diagnosis for this admission?: Yes (11) Tobacco abuse Is this a current diagnosis for this admission?: Yes (12) Anemia Is this a current diagnosis for this admission?: Yes (13) Thrombocytopenia Is this a current diagnosis for this admission?: Yes - Transfer Medications Home Medications: Aspirin [Aspirin 325 mg Tablet] 325 mg PO DAILY 11/03/16 Atorvastatin Calcium 80 mg PO QHS 11/03/16 Clopidogrel Bisulfate [Clopidogrel] 75 mg PO DAILY 11/03/16 Diphenhydramine HCl [Benadryl 25 mg Capsule] 50 mg PO BID 11/03/16 Ferrous Sulfate [Iron] 325 mg PO DAILY 11/03/16 Furosemide [Lasix] 40 mg PO BID 11/03/16 Gabapentin 2 cap PO Q8 11/03/16 Insulin Glargine,Hum.rec.anlog [Lantus Solostar] 35 unit SQ QHS 11/03/16 Liraglutide [Victoza 2-Jay] 1.8 mg SQ DAILY 11/03/16 Losartan Potassium 25 mg PO DAILY 11/03/16 Metformin HCl 500 mg PO BID 11/03/16 Methocarbamol 2 tab PO Q8 11/03/16 Nitroglycerin 0.4 mg SL ASDIR PRN 11/03/16 Pantoprazole Sodium 40 mg PO DAILY 11/03/16 Potassium Chloride [Klor-Con 10] 20 meq PO Q12 11/03/16 Ranitidine HCl [Zantac] 150 mg PO DAILY 11/03/16 Ranolazine [Ranexa] 500 mg PO Q12 11/03/16 Tamsulosin HCl 0.4 mg PO QHS 11/03/16 Donepezil HCl [Aricept] 10 mg PO DAILY 06/29/17 Finasteride [Proscar 5 mg Tablet] 5 mg PO DAILY 06/29/17 Ipratropium [place] [Atrovent 0.06% Nasal Singer] 1 spray NASL DAILY 06/29/17 Sucralfate [Carafate 1 gm Tablet] 1 gm PO ACHS 06/29/17 Tramadol HCl [Ultram 50 mg Tablet] 50 mg PO Q4HP PRN 06/29/17 Transfer Medications: Current Medications Al Hydrox/Mg Hydrox/Simethicone (Maalox Plus Susp 30 Udcup) 30 ml PO Q4HP PRN PRN Reason: HEARTBURN Stop: 07/29/17 01:14 Albuterol/Ipratropium (Duoneb 3 Ml Ampul) 3 ml NEB [id number] [facility] Stop: 07/29/17 13:59 Last Admin: 06/30/17 13:58 Dose: 3 ml Amlodipine Besylate (Norvasc 2.5 Mg Tablet) 2.5 mg PO DAILY [facility] Stop: 07/31/17 09:59 Aspirin (Aspirin 325 Mg Tablet) 325 mg PO DAILY [facility]ANG Stop: 07/29/17 09:59 Last Admin: 06/30/17 09:45 Dose: 325 mg Atorvastatin Calcium (Lipitor 80 Mg Tablet) 80 mg PO QHS [facility] Stop: 07/29/17 21:59 Last Admin: 06/29/17 21:31 Dose: 80 mg Benzonatate (Tessalon Perles 100 Mg Capsule) 100 mg PO Q8HP PRN PRN Reason: COUGH Stop: 07/29/17 08:41 Clopidogrel Bisulfate (Plavix 75 Mg Tablet) 75 mg PO DAILY [facility] Stop: 07/29/17 09:59 Last Admin: 06/30/17 09:41 Dose: 75 mg Dextrose (Dextrose Inj 50% Syringe (25 Gm/50 Ml)) 12.5 gm IV PRN PRN; Protocol PRN Reason: FOR BG 50-69 IN ALERT PATIENT Stop: 07/29/17 01:14 Dextrose (Dextrose Inj 50% Syringe (25 Gm/50 Ml)) 25 gm IV PRN PRN; Protocol PRN Reason: PER PROTOCOL Stop: 07/29/17 01:14 Docusate Sodium (Colace 100 Mg Capsule) 100 mg PO DAILY [facility] Stop: 07/29/17 09:59 Last Admin: 06/30/17 09:41 Dose: 100 mg Ferrous Sulfate (Feosol 325 Mg Tablet) 325 mg PO DAILY [facility] Stop: 07/31/17 09:59 Furosemide (Lasix Inj/Pf 40 Mg/4 Ml Sdv) 40 mg IV Q12 DANG Stop: 07/29/17 09:59 Last Admin: 06/30/17 09:44 Dose: 40 mg Gabapentin (Neurontin 300 Mg Capsule) 600 mg PO TID DANG Stop: 07/29/17 09:59 Last Admin: 06/30/17 17:17 Dose: 600 mg Glucagon (Glucagen Inj 1 Mg Vial) 1 mg IM PRN PRN; Protocol PRN Reason: Evaluate for BG < 70 Stop: 07/29/17 01:14 Glucose (Glutose 40% Gel 15 Gm Tube) 15 gm PO PRN PRN; Protocol PRN Reason: FOR BG 50-69 IN ALERT PATIENT Stop: 07/29/17 01:14 Glucose (Glutose 40% Gel 15 Gm Tube) 30 gm PO PRN PRN; Protocol PRN Reason: FOR BG < 50 IN ALERT PATIENT Stop: 07/29/17 01:14 Guaifenesin (Mucinex Sr 600 Mg Tablet.Sa) 1,200 mg PO Q12 DANG Stop: 07/29/17 09:59 Last Admin: 06/30/17 09:42 Dose: 1,200 mg Heparin Sodium (Porcine) (Heparin Inj 5,000 Units/Ml 1 Ml Syringe) 5,000 unit SUBCUT Q8 DANG Stop: 07/29/17 05:59 Last Admin: 06/30/17 13:20 Dose: Not Given Insulin Human Lispro (Humalog Insulin 100 Unit/1 Ml 3 Ml Vial) 0 - 12 unit SUBCUT ACP PRN; Protocol PRN Reason: PER PROTOCOL Stop: 07/29/17 01:14 Last Admin: 06/30/17 18:06 Dose: 6 unit Lansoprazole (Prevacid 30 Mg Odt Tablet) 40 mg PO BID [facility] Stop: 07/29/17 09:59 Last Admin: 06/30/17 17:18 Dose: 40 mg Levofloxacin (Levaquin 750 Mg Tablet) 750 mg PO DAILY [facility]ANG Stop: 07/08/17 09:59 Losartan Potassium (Cozaar 50 Mg Tablet) 50 mg PO DAILY DANG Stop: 07/31/17 09:59 Methocarbamol (Robaxin 500 Mg Tablet) 1,000 mg PO Q8 DANG Stop: 07/30/17 21:59 Methylprednisolone Sodium Succinate (Solu-Medrol Inj/Pf 40 Mg/1 Ml Sdv) 40 mg IV Q8 DANG Stop: 07/29/17 13:59 Last Admin: 06/30/17 14:30 Dose: 40 mg Metoprolol Succinate (Toprol Xl 50 Mg Tab.Sr) 50 mg PO DAILY DANG Stop: 07/29/17 09:59 Last Admin: 06/30/17 09:44 Dose: 50 mg Midodrine (Proamatine 5 Mg Tablet) 5 mg PO TID DANG Stop: 07/30/17 17:59 Last Admin: 06/30/17 17:45 Dose: Not Given Nicotine (Nicoderm 14 Mg/24 Hr Transdermal Patch) 1 each TD DAILY [facility]ANG Stop: 07/29/17 09:59 Last Admin: 06/30/17 09:45 Dose: Not Given Nitroglycerin (Nitrostat 0.4 Mg (1/150 Gr) Tabs 25/Bottle) 1 tab SL Q5MP PRN PRN Reason: FOR CHEST PAIN Stop: 07/29/17 01:14 Last Admin: 06/30/17 11:00 Dose: 1 tab Potassium Chloride (Klor-Con 10 Meq Tablet.Sa) 20 meq PO BID [facility]ANG Stop: 07/29/17 09:59 Last Admin: 06/30/17 17:18 Dose: 20 meq Ranolazine (Ranexa 500 Mg Tab.Sr) 500 mg PO Q12A [facility]ANG Stop: 07/30/17 17:59 Last Admin: 06/30/17 17:18 Dose: 500 mg Sodium Chloride (Saline Flush 2.5 Ml Monoject Prefil Syrin) 2.5 ml IV Q8 DANG Stop: 07/29/17 05:59 Last Admin: 06/30/17 14:30 Dose: 2.5 ml Sucralfate (Carafate 1 Gm Tablet) 1 gm PO ACHS [facility]ANG Stop: 07/30/17 21:59 Tamsulosin HCl (Flomax 0.4 Mg Cap.Sr) 0.4 mg PO QHS DANG Stop: 07/29/17 21:59 Last Admin: 06/29/17 21:30 Dose: 0.4 mg Tramadol HCl (Ultram 50 Mg Tablet) 50 mg PO Q4HP PRN PRN Reason: FOR PAIN Stop: 07/07/17 16:26 - Allergies Allergies/Adverse Reactions: CURAD ADHESIVE Allergy (Mild, Uncoded 03/10/17 15:19) RASHES - Diet/Activity Discharge Diet: Cardiac, Diabetic Discharge Activity: Activity As Tolerated Hospital Course Hospital Course: Patient is a 71-year-old male with a past medical history of chronic kidney disease, CHF, coronary artery disease, hypertension and presented to ED via ambulance complaining of shortness of breath. Patient reported that for 4 days he had progressive worsening of shortness of breath that became acutely much worse. Symptoms triggered him to call EMS who placed patient on BiPAP, nitropaste and transported him to the hospital. The patient reported improvement of his breathing when was placed on BiPaP. In addition to initial complaints he referred that he was having productive cough of whitish phlegm. Patient also continues smoking. He admitted having a history of sleep apnea however he did not use CPAP. Actually he reported that he was already tired of the BiPAP machine that was used while he was in emergency room.. He reported that he had gained 9 pounds of weight in the past week. He continued to take Lasix 40 mg daily and noted medication compliance. He had not seen his primary care doctor regarding his concerns. He denied patient complained to our service of having productive cough. Patient also admitted smoking and not using the CPAP machine. He also related that he did not want to continue using BiPAP. any associated fever, chest pain, vomiting, focal weakness or numbness. He complained of a dull, constant throbbing pain to his left shoulder since onset of his shortness of breath. Nothing improved or worsened that symptom. Patient was admitted under hospitalist service. For the treatment of congestive heart failure an echocardiogram was ordered. It was not diagnostic due to body habitus. We continued diuresis and blood pressure control. We found out on the day of discharge after talking to family that he has a prior history of an EF of 30%. Interestingly patient is on no AICD. On the day of transfer patient I related that his breathing status improved with treatment rendered which included DuoNeb's, IV steroids, Mucinex and oral antibiotic treatment as well. He was requesting to wean him off oxygen. He went to the bathroom without oxygen and he began experiencing chest pain with radiation to his neck area. At that point in time patient admitted that he had been having bouts of chest pain at home for which he had been taking nitroglycerin on a regular basis. Patient was treated with nitroglycerin with some improvement. Unfortunately pain return back. Troponin was ordered and initial troponin level was normal. Anticipation was for patient to undergo a nuclear stress test the following day. Patient became tachycardic after was treated with nitroglycerin and Imdur. Patient admitted that the chest pain felt like in the past when he had heart attack. Family was at bedside also referred that patient had been through normal stress tests then to find out blockages when undergoing heart cath. We also had order CT of the chest to evaluate for pulmonary fibrosis which was ruled out. 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 Due to comorbidities and lack of interventional cardiology support and dealing with an unstable angina picture we are considering transferring to a tertiary hospital. Physical Exam Vital Signs: Temp Pulse Resp BP Pulse Ox 97.8 F 129 H 19 115/61 98 06/30/17 16:32 06/30/17 16:32 06/30/17 16:32 06/30/17 16:32 06/30/17 16:32 Intake & Output 06/29/17 06/30/17 07/01/17 06:59 06:59 06:59 Intake Total 620 Balance 620 Weight 113.7 kg General appearance: PRESENT: no acute distress, cooperative, morbidly obese Head exam: PRESENT: atraumatic, normocephalic Eye exam: PRESENT: conjunctiva pink, EOMI, PERRLA Ear exam: PRESENT: normal external ear exam Mouth exam: PRESENT: moist Neck exam: PRESENT: full ROM. ABSENT: JVD, lymphadenopathy, tenderness Respiratory exam: PRESENT: clear to auscultation ashwin, decreased breath sounds Cardiovascular exam: PRESENT: tachycardia. ABSENT: diastolic murmur, systolic murmur Vascular exam: PRESENT: normal capillary refill GI/Abdominal exam: PRESENT: normal bowel sounds, soft. ABSENT: tenderness Extremities exam: PRESENT: full ROM, +2 edema Musculoskeletal exam: PRESENT: ambulatory Neurological exam: PRESENT: alert, awake, oriented to person, oriented to place , oriented to time, oriented to situation, CN II-XII grossly intact Psychiatric exam: PRESENT: appropriate affect, normal mood Skin exam: PRESENT: intact, normal color Results Laboratory Results: 06/30/17 06/30/17 15:18 15:18 Creatine Kinase 119 CK-MB (CK-2) 1.24 Troponin I 0.015 Impressions: Chest X-Ray 06/28/17 22:27 IMPRESSION: Moderate interstitial markings; differential diagnosis includes pulmonary edema, atypical pneumonitis, and chronic interstitial lung disease. Chest CT 06/29/17 00:00 IMPRESSION: No findings worrisome for interstitial lung disease. 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
[2017-06-30] MEDS ORDERED: METOPROLOL SUCCINATE 50 MG TAB.SR.24H PO ONE (20:15)
[2017-06-30] MEDS ORDERED: ENOXAPARIN SODIUM INJ 120 MG/0.8 ML DISP.SYRIN SUBCUT ONE (20:15)
--- NOTE | 2017-06-30 20:38 | PDOC CONSULTATION ---
Consultation Consult Date: 06/30/17 Attending physician:: HARMONY LOBO Consult reason:: Chest pain History of Present Illness Admission Date/PCP: 06/30/17 11:17 Patient complains of: Chest pain and shortness of breath History of Present Illness: RAMYA ADDISON JR is a 71 year old male with a past medical history of chronic kidney disease, CHF, coronary artery disease, hypotension, who presents with shortness of breath. Patient reports that for the past 4 days he has had progressively worsening shortness of breath that became acutely much worse over the last 3-4 hours. Symptoms triggered him to call EMS who placed patient on BiPAP, placed Nitropaste and transported him to the hospital. The patient reports that his breathing still does not feel completely normal but is much improved on positive pressure ventilation. He denies any history of similar symptoms in the past. He does note that he has gained 9 pounds of weight in the past 1 week. He continues to take Lasix 40 mg daily and notes medication compliance. He has not seen his primary care doctor regarding today's concerns. He denies any associated fever, chest pain, vomiting, focal weakness or numbness. He does note a dull, constant throbbing pain to his left shoulder since onset of his shortness of breath today. Nothing improves or worsens that symptom. Patient and family gives significant history of coronary artery disease having had coronary artery bypass graft surgery more than 10 years ago. Patient also had numerous stents. 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 While in the hospital he developed chest pain which responded to nitroglycerin. Patient now has intermittent chest pain. Patient also noted to be tachycardic. On EKG he is noted to have atrial flutter with somewhat of a rapid ventricular response. Patient had a 2D echocardiogram which was technically difficult and limited and his ejection fraction was felt to be depressed. I have been asked to evaluate patient and help with management. Past Medical History Cardiac Medical History: Reports: Coronary Artery Disease, Myocardial Infarction Denies: Hypertension - LOW PRESSURE Pulmonary Medical History: Denies: Asthma, Bronchitis, Chronic Obstructive Pulmonary Disease (COPD), Pneumonia Neurological Medical History: Denies: Seizures Endocrine Medical History: Reports: Diabetes Mellitus Type 2 Renal/ Medical History: Reports: Chronic Kidney Disease Musculoskeltal Medical History: Denies: Arthritis Psychiatric Medical History: Denies: Depression Hematology: Reports: Anemia - HX Past Surgical History Past Surgical History: Reports: Cardiac Catheterization, Coronary Artery Bypass Graft, Coronary Stent, Other - Numerous coronary stents Social History Information Source: Patient Lives with: Spouse/Significant other Smoking Status: Never Smoker Frequency of Alcohol Use: None Hx Recreational Drug Use: No Hx Prescription Drug Abuse: No - Advance Directive Resuscitation Status: Full Code Surrogate healthcare decision maker:: Patient daughters at the surrogate decision-maker Family History Family History: Hypertension Parental Family History Reviewed: Yes Children Family History Reviewed: Yes Sibling(s) Family History Reviewed.: Yes Medication/Allergy Home Medications: Aspirin [Aspirin 325 mg Tablet] 325 mg PO DAILY 11/03/16 Atorvastatin Calcium 80 mg PO QHS 11/03/16 Clopidogrel Bisulfate [Clopidogrel] 75 mg PO DAILY 11/03/16 Diphenhydramine HCl [Benadryl 25 mg Capsule] 50 mg PO BID 11/03/16 Ferrous Sulfate [Iron] 325 mg PO DAILY 11/03/16 Furosemide [Lasix] 40 mg PO BID 11/03/16 Gabapentin 2 cap PO Q8 11/03/16 Insulin Glargine,Hum.rec.anlog [Lantus Solostar] 35 unit SQ QHS 11/03/16 Liraglutide [Victoza 2-Jay] 1.8 mg SQ DAILY 11/03/16 Losartan Potassium 25 mg PO DAILY 11/03/16 Metformin HCl 500 mg PO BID 11/03/16 Methocarbamol 2 tab PO Q8 11/03/16 Nitroglycerin 0.4 mg SL ASDIR PRN 11/03/16 Pantoprazole Sodium 40 mg PO DAILY 11/03/16 Potassium Chloride [Klor-Con 10] 20 meq PO Q12 11/03/16 Ranitidine HCl [Zantac] 150 mg PO DAILY 11/03/16 Ranolazine [Ranexa] 500 mg PO Q12 11/03/16 Tamsulosin HCl 0.4 mg PO QHS 11/03/16 Donepezil HCl [Aricept] 10 mg PO DAILY 06/29/17 Finasteride [Proscar 5 mg Tablet] 5 mg PO DAILY 06/29/17 Ipratropium [place] [Atrovent 0.06% Nasal [place]] 1 spray NASL DAILY 06/29/17 Sucralfate [Carafate 1 gm Tablet] 1 gm PO ACHS 06/29/17 Tramadol HCl [Ultram 50 mg Tablet] 50 mg PO Q4HP PRN 06/29/17 Allergies/Adverse Reactions: CURAD ADHESIVE Allergy (Mild, Uncoded 03/10/17 15:19) RASHES Review of Systems Review of Systems: Please see history of present illness and past medical history as wall. Constitutional: No fever or chills reported. Head : No recent chronic headaches, recent head injury. Eyes: No recent eye pain, diplopia, redness, discharge, acute visual changes. Ears: No recent chronic ear pain, acute hearing loss, ear discharge. Oral cavity: No recent ulcerations, bleeding, oral cavity discomfort. Neck: No recent acute neck pain reported. Hematologic: No recent easy bruising or bleeding or hematologic malignancy reported. Lymphatic: No recent lymphatic malignancy, chronic lymphadenopathy reported yet Cardiovascular system review: See history of present illness. Please see HPI for details Respiratory system review: No recent chronic cough, hemoptysis, blood clots in the lungs reported. Shortness of breath on exertion Gastrointestinal system review: Negative for any recent acute or chronic abdominal pain, hematemesis, melena, recent change in bowel habits. Genitourinary system review: No recent acute or chronic hematuria, flank pain, UTI etc. reported. Skin system review: Negative for any recent abnormal bruising, no rash, no pruritus reported. Neurologic: No prior history of strokes, mini strokes, seizure disorder. Psychologic: No history of major psychosis or major depression reported. Musculoskeletal: Minor aches and pains reported. No acute joint swelling reported. Endocrine: No recent polyuria, polydipsia, recent heat or cold intolerance. Physical Exam Vital Signs: Temp Pulse Resp BP Pulse Ox 97.8 F 129 H 19 115/61 98 06/30/17 16:32 06/30/17 16:32 06/30/17 16:32 06/30/17 16:32 06/30/17 16:32 Intake & Output 06/29/17 06/30/17 07/01/17 06:59 06:59 06:59 Intake Total 1124 Balance 1124 Weight 113.7 kg Exam: GENERAL: well-nourished and in no acute distress. Alert and oriented x3 HEAD: Atraumatic, normocephalic. Patient is edentulous EYES: Pupils equal round and reactive to light, extraocular movements intact, sclera anicteric, conjunctiva are normal. ENT: TMs normal, nares patent, oropharynx clear without exudates. Moist mucous membranes. No oral ulcerations or bleeding gums noted NECK: supple without lymphadenopathy. Trachea is central. No cervical or axillary lymphadenopathy noted. Carotids are 2+, JVD difficult to evaluate but probably normal LUNGS: Respiration seems nonlabored, no significant accessory muscle action noted. Few bibasilar fine crackles are noted. No wheezes rales or rhonchi noted. No significant dullness noted on percussion. CHEST: Palpation of the chest wall shows no significant chest wall tenderness. No other significant abnormalities noted. 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 ABDOMEN: Soft, no significant tenderness appreciated, normoactive bowel sounds. No guarding, no rebound. No rigidity noted . No masses appreciated. EXTREMITIES: Pedal pulses are 1-2+, no calf tenderness noted. No clubbing or cyanosis. negative pedal edema noted NEUROLOGICAL: Focused neurological exam showed no significant neurologic deficit. Normal speech, no focal weakness appreciated. PSYCH: Normal mood, normal affect. Judgment and insight within normal limits. SKIN: No significant ecchymosis, skin is noted to be warm. MUSCULOSKELETAL EXAM: No significant acute joint swelling noted. Results Laboratory Results: 06/30/17 06/30/17 15:18 15:18 Creatine Kinase 119 CK-MB (CK-2) 1.24 Troponin I 0.015 EKG Comments: Shows atrial flutter with 2-1 conduction. Impressions: Chest X-Ray 06/28/17 22:27 IMPRESSION: Moderate interstitial markings; differential diagnosis includes pulmonary edema, atypical pneumonitis, and chronic interstitial lung disease. Chest CT 06/29/17 00:00 IMPRESSION: No findings worrisome for interstitial lung disease. 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 Assessment & Plan - Diagnosis (1) Unstable angina pectoris due to coronary arteriosclerosis Is this a current diagnosis for this admission?: Yes (2) Atrial flutter Qualifiers: Atrial flutter type: atypical Qualified Code(s): I48.4 - Atypical atrial flutter Is this a current diagnosis for this admission?: Yes (3) Hypertension Qualifiers: Hypertension type: essential hypertension Qualified Code(s): I10 - Essential (primary) hypertension Is this a current diagnosis for this admission?: Yes (4) Dyslipidemia Is this a current diagnosis for this admission?: Yes (5) CAD (coronary artery disease) Qualifiers: Coronary Disease-Associated Artery/Lesion type: unspecified vessel or lesion type [place] vs. 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: unspecified senior living insulin use status Diabetes mellitus complication status : with unspecified complications Qualified Code(s): E11.8 - Type 2 diabetes mellitus with unspecified complications Is this a current diagnosis for this admission?: Yes (7) Sleep apnea Qualifiers: Sleep apnea type: obstructive Qualified Code(s): G47.33 - Obstructive sleep apnea (adult) (pediatric) Is this a current diagnosis for this admission?: Yes (8) Obesity Qualifiers: Obesity type: unspecified obesity type Obesity classification: unspecified obesity classification Serious obesity comorbidity presence: unspecified whether serious comorbidity present Qualified Code(s): E66.9 - Obesity, unspecified Is this a current diagnosis for this admission?: Yes - Notes Notes: Unstable angina: Recommend treating patient with anticoagulation with either Lovenox or heparin, patient to continue Plavix, aspirin, high-dose statin, increase beta-wayne dose, agree with Ranexa, may increase dose to 1000 mg p.o. twice daily. OFELIA inhibitor/angiotensin receptor blockers. Agree with transfer for heart catheterization in view of high risk nature. It seems patient prefers to go to [facility]. Coronary artery disease: Patient has history of CAD, status post CABG and numerous stent placement. Atrial flutter with variable conduction: Will recommend chronic anticoagulation in this patient. Dyslipidemia: Continue statin therapy. LDL goal is less than 70. Diabetes: Continue current management plans. Avoid hyperglycemia or hypoglycemia. Sleep apnea syndrome: Suspect patient has severe sleep apnea syndrome. Have recommended patient be treated for it but he does not want to wear the CPAP. Obesity: Patient has been encouraged in weight loss. - Time Time Spent: 30 to 50 Minutes - CODE STATUS was discussed, patient remains full code. Surrogate decision-maker unchanged. Multiple medical problems were addressed. More than 50% of the time spent coordinating care, discussing management plans with involved caregivers. Management plans discussed with involved personnels. Medical decision making was of moderate to high complexity , patient's has multiple comorbidities. Medications reviewed and adjusted accordingly: Yes
[2017-06-30 21:25] LABS: CREATINE KINASE MB 1.86 ng/mL (<4.55); TROPONIN I 0.1 ng/mL
[2017-06-30] MEDS: TAMSULOSIN HCL 0.4 MG CAP.SR.24H PO SCH (21:30)
[2017-06-30] MEDS: ATORVASTATIN CALCIUM 80 MG TABLET PO SCH (21:30)
[2017-06-30] MEDS: SUCRALFATE 1 GM TABLET PO SCH (21:31)
[2017-06-30] MEDS: METHOCARBAMOL 500 MG TABLET PO SCH (21:37)
[2017-06-30] MEDS ORDERED: RANOLAZINE 500 MG TAB.SR.12H PO SCH (22:00)
--- NOTE | 2017-06-30 22:36 | EKG REPORT ---
SEVERITY:- ABNORMAL ECG - A FLUTTER WITH 2:1 CONDUCTION NONSPECIFIC INTRAVENTRICULAR CONDUCTION DELAY BORDERLINE R WAVE PROGRESSION, ANTERIOR LEADS : Confirmed by: Soco William 30-Jun-2017 22:35:33
[2017-07-01 03:21] LABS: CREATINE KINASE MB 2.11 ng/mL (<4.55)
[2017-07-01 03:22] LABS: TROPONIN I 0.294 ng/mL
[2017-07-01] MEDS: METHYLPREDNISOLONE INJ 40 MG/1 ML SDV IV SCH ×3 (05:54→21:53)
[2017-07-01] MEDS: METHOCARBAMOL 500 MG TABLET PO SCH ×3 (07:42→21:53)
[2017-07-01] MEDS: RANOLAZINE 500 MG TAB.SR.12H PO SCH ×2 (07:42→17:17)
[2017-07-01] MEDS: SUCRALFATE 1 GM TABLET PO SCH ×4 (07:42→21:53)
[2017-07-01] MEDS: IPRATROPIUM/ALBUTEROL 0.5-2.5 MG/3 ML AMPUL NEB SCH ×3 (08:47→20:26)
[2017-07-01] MEDS: INSULIN LISPRO 100 UNIT/ML 3 ML VIAL SUBCUT PRN ×4 (08:58→23:25)
[2017-07-01] MEDS: MIDODRINE HCL 5 MG TABLET PO SCH ×3 (09:41→17:20)
[2017-07-01] MEDS: DOCUSATE SODIUM 100 MG CAPSULE PO SCH (09:42)
[2017-07-01] MEDS ORDERED: ISOSORBIDE MONONITRATE 30 MG TAB.ER.24H PO SCH (10:00)
[2017-07-01] MEDS: NITROGLYCERIN 0.4 MG/TAB 25 TAB/BOTTLE SL PRN (10:38)
[2017-07-01] MEDS: ASPIRIN 81 MG TABLET, ENT COATED PO SCH (10:42)
[2017-07-01] MEDS: GABAPENTIN 300 MG CAPSULE PO SCH ×3 (10:42→17:16)
[2017-07-01] MEDS: CLOPIDOGREL BISULFATE 75 MG TABLET PO SCH (10:44)
[2017-07-01] MEDS: AMLODIPINE BESYLATE 2.5 MG TABLET PO SCH (10:44)
[2017-07-01] MEDS: POTASSIUM CHLORIDE 10 MEQ TABLET.SA PO SCH ×2 (10:45→17:16)
[2017-07-01] MEDS: FERROUS SULFATE 325 MG TABLET PO SCH (10:45)
[2017-07-01] MEDS: LEVOFLOXACIN 750 MG TABLET PO SCH (10:46)
[2017-07-01] MEDS: METOPROLOL SUCCINATE 50 MG TAB.SR.24H PO SCH ×2 (10:46→21:53)
[2017-07-01] MEDS: GUAIFENESIN 600 MG TABLET.SA PO SCH ×2 (10:46→21:53)
[2017-07-01] MEDS: LOSARTAN POTASSIUM 50 MG TABLET PO SCH (10:47)
[2017-07-01] MEDS: NICOTINE 14 MG/24 HR PATCH.TD24 TD SCH (10:47)
[2017-07-01] MEDS ORDERED: ALPRAZOLAM 0.5 MG TABLET PO ONE (11:00)
[2017-07-01] MEDS ORDERED: LANSOPRAZOLE 30 MG TAB.RAP.DR PO ONE (11:30)
[2017-07-01] MEDS ORDERED: RANOLAZINE 500 MG TAB.SR.12H PO ONE (11:30)
--- NOTE | 2017-07-01 12:51 | Progress Note ---
Provider Note Provider Note: Patient remains with chest pain on exertion. Contacted Dr. perez at [facility] who kindly accepted patient on transfer. Dr. William recommended to for patient to be placed on amiodarone drip due to increase in heart rate and slight bump in troponin. Physical exam remains the same as when dictated on June 30
--- NOTE | 2017-07-01 13:01 | PDOC PROGRESS REPORT ---
Subjective Progress Note for:: 07/01/17 Subjective:: Patient continues to feel bad and some intermittent shortness of breath and chest discomfort. These are correlated to whenever patient heart rate is high. Today on monitoring he is noted to have atrial flutter with predominantly 2-1 conduction. Patient is quite obese. He also has some underlying pulmonary issues. Chest x-ray reviewed shows mild CHF. Cardiac enzymes has come back suggestive in the non-STEMI range. Twelve-lead EKG did not show any significant ST segment changes. The hospitalist trying to send him out. Patient has complicated cardiac history with history of bypass surgery and multiple stents. Reason For Visit: HEART FAILURE,ACUTE PULMONARY EDEMA Physical Exam Vital Signs: Temp Pulse Resp BP Pulse Ox 98.1 F 142 H 22 H 103/56 L 98 07/01/17 12:06 07/01/17 12:06 07/01/17 12:06 07/01/17 12:06 07/01/17 12:06 Intake & Output 06/30/17 07/01/17 07/02/17 06:59 06:59 06:59 Intake Total 1530 Balance 1530 Weight 111.1 kg Exam: GENERAL: well-nourished and in no acute distress. Alert and oriented x3 HEAD: Atraumatic, normocephalic. EYES: Pupils equal round and reactive to light, extraocular movements intact, sclera anicteric, conjunctiva are normal. ENT: TMs normal, nares patent, oropharynx clear without exudates. Moist mucous membranes. No oral ulcerations or bleeding gums noted NECK: supple without lymphadenopathy. Trachea is central. No cervical or axillary lymphadenopathy noted. Carotids are 2+, JVD is difficult to assess. LUNGS: Respiration seems nonlabored, no significant accessory muscle action noted. Bibasilar fine crackles are noted. No wheezes rales or rhonchi noted. No significant dullness noted on percussion. CHEST: Palpation of the chest wall shows no significant chest wall tenderness. No other significant abnormalities noted. 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 ABDOMEN: Soft, no significant tenderness appreciated, normoactive bowel sounds. No guarding, no rebound. No rigidity noted . No masses appreciated. EXTREMITIES: Pedal pulses are 1-2+, no calf tenderness noted. No clubbing or cyanosis. 1-2+ pedal edema noted NEUROLOGICAL: Focused neurological exam showed no significant neurologic deficit. Normal speech, no focal weakness appreciated. PSYCH: Normal mood, normal affect. Judgment and insight within normal limits. SKIN: No significant ecchymosis, skin is noted to be warm. MUSCULOSKELETAL EXAM: No significant acute joint swelling noted. Results Laboratory Results: 06/30/17 06/30/17 06/30/17 15:18 15:18 20:40 Creatine Kinase 119 95 CK-MB (CK-2) 1.24 Troponin I 0.015 06/30/17 07/01/17 07/01/17 20:40 02:43 02:43 Creatine Kinase 81 CK-MB (CK-2) 1.86 2.11 Troponin I 0.100 0.294 EKG Comments: Twelve-lead EKG from yesterday reviewed. Showed atrial flutter with 2-1 conduction. No significant acute ST segment changes noted. Impressions: Chest X-Ray 06/28/17 22:27 IMPRESSION: Moderate interstitial markings; differential diagnosis includes pulmonary edema, atypical pneumonitis, and chronic interstitial lung disease. Chest CT 06/29/17 00:00 IMPRESSION: No findings worrisome for interstitial lung disease. 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 transplanted heart: [place] heart Associated angina: with unstable angina Qualified Code(s): I25.110 - Atherosclerotic heart disease of [place] coronary artery with unstable angina pectoris Is this a current diagnosis for this admission?: Yes (5) Diabetes Qualifiers: Diabetes mellitus type: type 2 Diabetes mellitus chcf insulin use: unspecified chcf insulin use status Diabetes mellitus complication status : with unspecified complications Qualified Code(s): E11.8 - Type 2 diabetes mellitus with unspecified complications Is this a current diagnosis for this admission?: Yes (6) Sleep apnea Qualifiers: Sleep apnea type: obstructive Qualified Code(s): G47.33 - Obstructive sleep apnea (adult) (pediatric) Is this a current diagnosis for this admission?: Yes (7) Obesity Qualifiers: Obesity type: unspecified obesity type Obesity classification: unspecified obesity classification Serious obesity comorbidity presence: unspecified whether serious comorbidity present Qualified Code(s): E66.9 - Obesity, unspecified Is this a current diagnosis for this admission?: Yes (8) Non-STEMI (non-ST elevated myocardial infarction) Is this a current diagnosis for this admission?: Yes (9) Tobacco abuse Is this a current diagnosis for this admission?: Yes - Notes Notes: Non-STEMI: Have placed orders for Lovenox 1 mg/kg every 12, continue patient on Plavix, aspirin, high-dose statin, increase beta-wayne dose, agree with Ranexa , may increase dose to 1000 mg p.o. twice daily. OFELIA inhibitor/angiotensin receptor blockers. Agree with transfer for heart catheterization in view of high risk nature. I am told that patient has been accepted at [facility]. Coronary artery disease: Patient has history of CAD, status post CABG and numerous stent placement. Atrial flutter with variable conduction: Will recommend chronic anticoagulation in this patient. Because increased heart rate is worsening angina, will start patient on amiodarone bolus and drip protocol. Patient also to receive digoxin 0.5 mg IV 1 dose. Dyslipidemia: Continue statin therapy. LDL goal is less than 70. Diabetes: Continue current management plans. Avoid hyperglycemia or hypoglycemia. Sleep apnea syndrome: Suspect patient has severe sleep apnea syndrome. Have recommended patient be treated for it but he does not want to wear the CPAP. Tobacco abuse: Patient has been a smoking until he came to the hospital. Patient has been advised to quit smoking. Obesity: Patient has been encouraged in weight loss. - Time Time with patient: Greater than 35 minutes - CODE STATUS was discussed, patient remains full code. Surrogate decision-maker unchanged. Multiple medical problems were addressed. More than 50% of the time spent coordinating care, discussing management plans with involved caregivers. Management plans discussed with involved personnels. Medical decision making was of moderate to high complexity, patient's has multiple comorbidities. Medications reviewed and adjusted accordingly: Yes
[2017-07-01] MEDS ORDERED: DIGOXIN INJ 0.5 MG/2 ML AMPULE IV ONE (13:30)
[2017-07-01] MEDS ORDERED: AMIODARONE HCL 150 MG in DEXTROSE 5%-WATER 100 ML IV ONE (14:30)
[2017-07-01] MEDS ORDERED: DEXTROSE 5%-WATER 500 ML with AMIODARONE HCL 900 MG IV PRN ×2 (14:30)
[2017-07-01] MEDS: DIGOXIN INJ 0.5 MG/2 ML AMPULE IV PRN ×2 (15:32→16:16)
[2017-07-01] MEDS: LANSOPRAZOLE 30 MG TAB.RAP.DR PO SCH (17:18)
[2017-07-01] MEDS ORDERED: ENOXAPARIN SODIUM INJ 120 MG/0.8 ML DISP.SYRIN SUBCUT SCH (18:00)
[2017-07-01] MEDS: ATORVASTATIN CALCIUM 80 MG TABLET PO SCH (21:53)
[2017-07-01] MEDS: TAMSULOSIN HCL 0.4 MG CAP.SR.24H PO SCH (21:54)
[2017-07-01] MEDS ORDERED: INSULIN GLARGINE,HUM.REC.ANLOG 1,000 UNIT/10 ML UNIT SUBCUT SCH (22:00)
[2017-07-01] MEDS ORDERED: INSULIN GLARGINE,HUM.REC.ANLOG 300 UNIT/3 ML INSULN.PEN SUBCUT SCH (22:00)
--- NOTE | 2017-07-01 23:05 | EKG REPORT ---
SEVERITY:- ABNORMAL ECG - ATRIAL FLUTTER WITH RVR BORDERLINE RIGHT AXIS DEVIATION LOW VOLTAGE IN FRONTAL LEADS BORDERLINE R WAVE PROGRESSION, ANTERIOR LEADS NONSPECIFIC T ABNORMALITIES, INFERIOR LEADS PROLONGED QT INTERVAL : Confirmed by: Soco William 01-Jul-2017 23:04:38
[2017-07-02] MEDS: METHOCARBAMOL 500 MG TABLET PO SCH ×2 (06:12→13:22)
[2017-07-02] MEDS: RANOLAZINE 500 MG TAB.SR.12H PO SCH (06:12)
[2017-07-02] MEDS: METHYLPREDNISOLONE INJ 40 MG/1 ML SDV IV SCH (06:12)
[2017-07-02] MEDS: IPRATROPIUM/ALBUTEROL 0.5-2.5 MG/3 ML AMPUL NEB SCH ×2 (07:58→13:51)
[2017-07-02] MEDS: LANSOPRAZOLE 30 MG TAB.RAP.DR PO SCH (08:21)
[2017-07-02] MEDS: SUCRALFATE 1 GM TABLET PO SCH ×2 (08:21→10:15)
[2017-07-02] MEDS: INSULIN LISPRO 100 UNIT/ML 3 ML VIAL SUBCUT PRN ×2 (08:22→13:23)
[2017-07-02 08:50] LABS: HEMATOCRIT 38.3 % (37.9-51.0); HEMOGLOBIN 12.8 g/dL (13.5-17.0); MEAN CORPUSCULAR HEMOGLOBIN 31.8 pg (27.0-33.4); MEAN CORPUSCULAR HGB CONC 33.3 g/dL (32.0-36.0); MEAN CORPUSCULAR VOLUME 96 fl (80-97); PLATELET COUNT 145 10^3/uL (150-450); RED BLOOD COUNT 4.01 10^6/uL (4.35-5.55); RED CELL DISTRIBUTION WIDTH 15.5 % (11.5-14.0); WHITE BLOOD COUNT 7.4 10^3/uL (4.0-10.5)
--- NOTE | 2017-07-02 09:06 | EKG REPORT ---
SEVERITY:- ABNORMAL ECG - ATRIAL FLUTTER RIGHT AXIS DEVIATION ABNRM R PROG, CONSIDER ASMI OR LEAD PLACEMENT NONSPECIFIC T ABNORMALITIES, DIFFUSE LEADS : Confirmed by: Soco William 02-Jul-2017 09:05:23
[2017-07-02 09:07] LABS: ANION GAP 6 (5-19); BLOOD UREA NITROGEN 40 mg/dL (7-20); CALCIUM 9.1 mg/dL (8.4-10.2); CARBON DIOXIDE 27 mmol/L (22-30); CHLORIDE 105 mmol/L (98-107); GLUCOSE 178 mg/dL (75-110); POTASSIUM 4.8 mmol/L (3.6-5.0); SODIUM 138.4 mmol/L (137-145)
[2017-07-02] MEDS ORDERED: ENOXAPARIN SODIUM INJ 120 MG/0.8 ML DISP.SYRIN SUBCUT SCH (10:00)
[2017-07-02] MEDS: GABAPENTIN 300 MG CAPSULE PO SCH ×2 (10:11→13:23)
[2017-07-02] MEDS: GUAIFENESIN 600 MG TABLET.SA PO SCH (10:12)
[2017-07-02] MEDS: FERROUS SULFATE 325 MG TABLET PO SCH (10:12)
[2017-07-02] MEDS: CLOPIDOGREL BISULFATE 75 MG TABLET PO SCH (10:12)
[2017-07-02] MEDS: NICOTINE 14 MG/24 HR PATCH.TD24 TD SCH (10:13)
[2017-07-02] MEDS: LEVOFLOXACIN 750 MG TABLET PO SCH (10:13)
[2017-07-02] MEDS: LOSARTAN POTASSIUM 50 MG TABLET PO SCH (10:14)
[2017-07-02] MEDS: METOPROLOL SUCCINATE 50 MG TAB.SR.24H PO SCH (10:14)
[2017-07-02] MEDS: ASPIRIN 81 MG TABLET, ENT COATED PO SCH (10:14)
[2017-07-02] MEDS: AMLODIPINE BESYLATE 2.5 MG TABLET PO SCH (10:14)
[2017-07-02] MEDS: DOCUSATE SODIUM 100 MG CAPSULE PO SCH (10:22)
[2017-07-02] MEDS: MIDODRINE HCL 5 MG TABLET PO SCH ×2 (10:22→13:13)
--- NOTE | 2017-07-02 11:00 | Physician Advisory Note ---
Physician Advisor ProgressNote .: [facility] for this patient. Physician Advisor Statement: Please consider documenting, if you agree: 1. "Acute on chronic CHF, suspect systolic" (ECHO, tho' not optimal, did indicate likely decreased EF, & pt w/previous EF 30%) 2. "Acute pulmonary edema" or ... (per initial CXR, given CT showed no ILD) Thanks! CK
[2017-07-02 12:39] VITALS: BP 117/62
--- NOTE | 2017-07-02 13:13 | PDOC PROGRESS REPORT ---
Subjective Progress Note for:: 07/02/17 Subjective:: Patient feels better today. Currently on amiodarone drip. Heart rate better controlled. Still in atrial flutter with 2-1 conduction. Patient claims to be chest pain-free. He is waiting for a bed at [facility] for heart catheterization. The hospitalist trying to send him out. Patient has complicated cardiac history with history of bypass surgery and multiple stents. Reason For Visit: HEART FAILURE,ACUTE PULMONARY EDEMA Physical Exam Vital Signs: Temp Pulse Resp BP Pulse Ox 97.8 F 70 19 117/62 95 07/02/17 12:33 07/02/17 12:33 07/02/17 12:33 07/02/17 12:33 07/02/17 12:33 Intake & Output 07/01/17 07/02/17 07/03/17 06:59 06:59 06:59 Intake Total 1530 2095 910 Output Total 700 1000 Balance 1530 1395 -90 Weight 111.1 kg 110.3 kg Exam: GENERAL: well-nourished and in no acute distress. Alert and oriented x3 HEAD: Atraumatic, normocephalic. EYES: Pupils equal round and reactive to light, extraocular movements intact, sclera anicteric, conjunctiva are normal. ENT: TMs normal, nares patent, oropharynx clear without exudates. Moist mucous membranes. No oral ulcerations or bleeding gums noted NECK: supple without lymphadenopathy. Trachea is central. No cervical or axillary lymphadenopathy noted. Carotids are 2+, JVD WNL LUNGS: Respiration seems nonlabored, no significant accessory muscle action noted. Breath sounds clear to auscultation bilaterally and equal noted. No wheezes rales or rhonchi noted. No significant dullness noted on percussion. CHEST: Palpation of the chest wall shows no significant chest wall tenderness. No other significant abnormalities noted. 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 ABDOMEN: Soft, no significant tenderness appreciated, normoactive bowel sounds. No guarding, no rebound. No rigidity noted . No masses appreciated. EXTREMITIES: Pedal pulses are 1-2+, no calf tenderness noted. No clubbing or cyanosis. 1+ pedal edema noted NEUROLOGICAL: Focused neurological exam showed no significant neurologic deficit. Normal speech, no focal weakness appreciated. PSYCH: Normal mood, normal affect. Judgment and insight within normal limits. SKIN: No significant ecchymosis, skin is noted to be warm. MUSCULOSKELETAL EXAM: No significant acute joint swelling noted. Results Laboratory Results: 07/02/17 08:20 07/02/17 08:20 07/02/17 07/02/17 08:20 08:20 WBC 7.4 RBC 4.01 L Hgb 12.8 L Hct 38.3 MCV 96 MCH 31.8 MCHC 33.3 RDW 15.5 H Plt Count 145 L Sodium 138.4 Potassium 4.8 Chloride 105 Carbon Dioxide 27 Anion Gap 6 BUN 40 H Creatinine 0.88 Est GFR ( Amer) > 60 Est GFR (Non-Af Amer) > 60 Glucose 178 H Calcium 9.1 06/30/17 06/30/17 06/30/17 15:18 15:18 20:40 Creatine Kinase 119 95 CK-MB (CK-2) 1.24 Troponin I 0.015 06/30/17 07/01/17 07/01/17 20:40 02:43 02:43 Creatine Kinase 81 CK-MB (CK-2) 1.86 2.11 Troponin I 0.100 0.294 07/01/17 16:36 Creatine Kinase CK-MB (CK-2) Troponin I 0.220 EKG Comments: Telemetry shows atrial flutter with controlled ventricular response. Impressions: Chest X-Ray 06/28/17 22:27 IMPRESSION: Moderate interstitial markings; differential diagnosis includes pulmonary edema, atypical pneumonitis, and chronic interstitial lung disease. Chest CT 06/29/17 00:00 IMPRESSION: No findings worrisome for interstitial lung disease. Post CABG Abdominal atherosclerotic change of the SMA and celiac artery Assessment & Plan - Diagnosis (1) Atrial flutter Qualifiers: Atrial flutter type: atypical Qualified Code(s): I48.4 - Atypical atrial flutter Is this a current diagnosis for this admission?: Yes (2) Hypertension Qualifiers: Hypertension type: essential hypertension Qualified Code(s): I10 - Essential (primary) hypertension Is this a current diagnosis for this admission?: Yes (3) Dyslipidemia Is this a current diagnosis for this admission?: Yes (4) CAD (coronary artery disease) Qualifiers: Coronary Disease-Associated Artery/Lesion type: unspecified vessel or lesion type [place] vs. transplanted heart: [place] heart Associated angina: with unstable angina Qualified Code(s): I25.110 - Atherosclerotic heart disease of [place] coronary artery with unstable angina pectoris Is this a current diagnosis for this admission?: Yes (5) Diabetes Qualifiers: Diabetes mellitus type: type 2 Diabetes mellitus skilled nursing insulin use: unspecified skilled nursing insulin use status Diabetes mellitus complication status : with unspecified complications Qualified Code(s): E11.8 - Type 2 diabetes mellitus with unspecified complications Is this a current diagnosis for this admission?: Yes (6) Sleep apnea Qualifiers: Sleep apnea type: obstructive Qualified Code(s): G47.33 - Obstructive sleep apnea (adult) (pediatric) Is this a current diagnosis for this admission?: Yes (7) Obesity Qualifiers: Obesity type: unspecified obesity type Obesity classification: unspecified obesity classification Serious obesity comorbidity presence: unspecified whether serious comorbidity present Qualified Code(s): E66.9 - Obesity, unspecified Is this a current diagnosis for this admission?: Yes (8) Non-STEMI (non-ST elevated myocardial infarction) Is this a current diagnosis for this admission?: Yes (9) Tobacco abuse Is this a current diagnosis for this admission?: Yes - Notes Notes: Non-STEMI: Continue Lovenox, continue patient on Plavix, aspirin, high-dose statin, increase beta-wayne dose, agree with Ranexa, 1000 mg p.o. twice daily. OFELIA inhibitor/angiotensin receptor blockers, escalate as tolerated by blood pressure. Agree with transfer for heart catheterization in view of high risk nature. I am told that patient has been accepted at [facility]. Coronary artery disease: Patient has history of CAD, status post CABG and numerous stent placement. Atrial flutter with variable conduction: Will recommend chronic anticoagulation in this patient. Continue amiodarone drip. At the end of protocol, start patient on amiodarone 200 mg p.o. 3 times a day with food. Dyslipidemia: Continue statin therapy. LDL goal is less than 70. Diabetes: Continue current management plans. Avoid hyperglycemia or hypoglycemia. Sleep apnea syndrome: Suspect patient has severe sleep apnea syndrome. Have recommended patient be treated for it but he does not want to wear the CPAP. Tobacco abuse: Patient has been a smoking until he came to the hospital. Patient has been advised to quit smoking. Patient currently wearing nicotine patch. Obesity: Patient has been encouraged in weight loss. Patient given my card. He can follow-up with me if he wishes. - Time Time with patient: Greater than 35 minutes - CODE STATUS was discussed, patient remains full code. Surrogate decision-maker unchanged. Multiple medical problems were addressed. More than 50% of the time spent coordinating care, discussing management plans with involved caregivers. Management plans discussed with involved personnels. Medical decision making was of moderate to high complexity, patient's has multiple comorbidities. Medications reviewed and adjusted accordingly: Yes
--- NOTE | 2017-07-02 13:36 | PDOC PROGRESS REPORT ---
Subjective Progress Note for:: 07/02/17 Subjective:: Patient relates that he still having chest pain. Nurse reported that no bed had been available at [facility] and that now patient wants to go to [facility]. [facility] and patient was [facility] Review of systems All organ systems evaluated and negative except as seen subjective All significant laboratories and diagnostics have been reviewed Reason For Visit: HEART FAILURE,ACUTE PULMONARY EDEMA Physical Exam Vital Signs: Temp Pulse Resp BP Pulse Ox 97.8 F 76 18 139/70 H 97 07/02/17 07:38 07/02/17 08:00 07/02/17 08:00 07/02/17 07:38 07/02/17 08:00 Intake & Output 07/01/17 07/02/17 07/03/17 06:59 06:59 06:59 Intake Total 1530 2095 Output Total 700 Balance 1530 1395 Weight 111.1 kg 110.3 kg General appearance: PRESENT: no acute distress, cooperative, morbidly obese Head exam: PRESENT: atraumatic, normocephalic Eye exam: PRESENT: conjunctiva pink, EOMI, PERRLA Ear exam: PRESENT: normal external ear exam Mouth exam: PRESENT: moist Neck exam: PRESENT: full ROM. ABSENT: JVD, lymphadenopathy, tenderness Respiratory exam: PRESENT: clear to auscultation ashwin Cardiovascular exam: PRESENT: irregular rhythm. ABSENT: diastolic murmur, systolic murmur GI/Abdominal exam: PRESENT: normal bowel sounds, soft, tenderness Extremities exam: PRESENT: full ROM, pedal edema Musculoskeletal exam: PRESENT: ambulatory Neurological exam: PRESENT: alert, awake, oriented to person, oriented to place , oriented to time, oriented to situation, CN II-XII grossly intact Psychiatric exam: PRESENT: appropriate affect, normal mood Skin exam: PRESENT: intact, normal color Results Laboratory Results: 07/02/17 08:20 07/02/17 08:20 07/02/17 07/02/17 08:20 08:20 WBC 7.4 RBC 4.01 L Hgb 12.8 L Hct 38.3 MCV 96 MCH 31.8 MCHC 33.3 RDW 15.5 H Plt Count 145 L Sodium 138.4 Potassium 4.8 Chloride 105 Carbon Dioxide 27 Anion Gap 6 BUN 40 H Creatinine 0.88 Est GFR ( Amer) > 60 Est GFR (Non-Af Amer) > 60 Glucose 178 H Calcium 9.1 06/30/17 06/30/17 06/30/17 15:18 15:18 20:40 Creatine Kinase 119 95 CK-MB (CK-2) 1.24 Troponin I 0.015 06/30/17 07/01/17 07/01/17 20:40 02:43 02:43 Creatine Kinase 81 CK-MB (CK-2) 1.86 2.11 Troponin I 0.100 0.294 07/01/17 16:36 Creatine Kinase CK-MB (CK-2) Troponin I 0.220 Impressions: Chest X-Ray 06/28/17 22:27 IMPRESSION: Moderate interstitial markings; differential diagnosis includes pulmonary edema, atypical pneumonitis, and chronic interstitial lung disease. Chest CT 06/29/17 00:00 IMPRESSION: No findings worrisome for interstitial lung disease. Post CABG Abdominal atherosclerotic change of the SMA and celiac artery Assessment & Plan - Diagnosis (1) Unstable angina pectoris due to coronary arteriosclerosis Is this a current diagnosis for this admission?: Yes Plan: Continue present management and [facility] (2) CHF exacerbation Qualifiers: Heart failure type: systolic Qualified Code(s): I50.23 - Acute on chronic systolic (congestive) heart failure Is this a current diagnosis for this admission?: Yes Plan: Will continue diuresis however suspect findings may relate to pulmonary hypertension. [facility] (3) Acute hypoxemic respiratory failure Is this a current diagnosis for this admission?: Yes Plan: Continue oxygen supplementation (4) COPD exacerbation Is this a current diagnosis for this admission?: Yes Plan: Discontinue IV steroids (5) Obese abdomen Is this a current diagnosis for this admission?: Yes Plan: Contributing to hypoventilatory syndrome (6) Sleep apnea Qualifiers: Sleep apnea type: obstructive Qualified Code(s): G47.33 - Obstructive sleep apnea (adult) (pediatric) Is this a current diagnosis for this admission?: Yes Plan: Patient refuses use of CPAP at home. Patient is also not amenable to teaching (7) GERD (gastroesophageal reflux disease) Qualifiers: Esophagitis presence: esophagitis presence not specified Qualified Code(s) : K21.9 - Gastro-esophageal reflux disease without esophagitis Is this a current diagnosis for this admission?: Yes Plan: Continue PPI (8) Superior mesenteric artery atherosclerosis Is this a current diagnosis for this admission?: Yes Plan: Likely may be contributing to complaints. He will need to be evaluated by the vascular surgeon once improving respiratory status. 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 transplanted heart: [place] heart Associated angina: with unstable angina Qualified Code(s): I25.110 - Atherosclerotic heart disease of [place] coronary artery with unstable angina pectoris Is this a current diagnosis for this admission?: Yes Plan: [facility] (11) Tobacco abuse Is this a current diagnosis for this admission?: Yes Plan: Willing to use nicotine patch (12) Anemia Is this a current diagnosis for this admission?: Yes Plan: Stable (13) Thrombocytopenia Is this a current diagnosis for this admission?: Yes Plan: Improved (14) Atrial flutter Qualifiers: Atrial flutter type: atypical Qualified Code(s): I48.4 - Atypical atrial flutter Is this a current diagnosis for this admission?: Yes Plan: To be transfer with amiodarone drip - Time Time Spent with patient: 15-24 minutes Medications reviewed and adjusted accordingly: Yes Anticipated discharge: Other - [facility]: when bed available - Inpatient Certification Based on my medical assessment, after consideration of the patient's comorbidities, presenting symptoms, or acuity I expect that the services needed warrant INPATIENT care.: Yes I certify that my determination is in accordance with my understanding of Medicare's requirements for reasonable and necessary INPATIENT services [42 CFR 412.3e].: Yes Medical Necessity: Need Close Monitoring Due to Risk of Patient Decompensation
--- NOTE | 2017-07-27 06:32 | PDOC H&P ---
History of Present Illness Admission Date/PCP: 06/30/17 11:17 Patient complains of: Shortness of breath History of Present Illness: RAMYA ADDISON JR is a 71 year old male with history of chronic kidney disease , distant heart failure, coronary artery disease, hypertension presenting with shortness of breath. Symptoms began 4 days ago acutely worse over the last 4 hours prompting call to the EMS placing him on BiPAP and Nitropaste. In the emergency room he is improved on positive pressure ventilation. He denies previous episode he admits 10 pound weight gain to spite medication compliance. He denies chest pain nausea vomiting fever. Imaging reveals pulmonary edema he is started on IV Lasix and referred to the hospitalist for admission. Past Medical History Cardiac Medical History: Reports: Coronary Artery Disease, Myocardial Infarction Denies: Hypertension - LOW PRESSURE Pulmonary Medical History: Denies: Asthma, Bronchitis, Chronic Obstructive Pulmonary Disease (COPD), Pneumonia Neurological Medical History: Denies: Seizures Endocrine Medical History: Reports: Diabetes Mellitus Type 2 Renal/ Medical History: Reports: Chronic Kidney Disease Musculoskeltal Medical History: Denies: Arthritis Psychiatric Medical History: Denies: Depression Hematology: Reports: Anemia - HX Past Surgical History Past Surgical History: Reports: Cardiac Catheterization, Coronary Artery Bypass Graft, Coronary Stent, Other - Numerous coronary stents Social History Information Source: Patient, [facility] Records Lives with: Spouse/Significant other Smoking Status: Never Smoker Frequency of Alcohol Use: None Hx Recreational Drug Use: No Hx Prescription Drug Abuse: No - Advance Directive Resuscitation Status: Full Code Family History Family History: Hypertension Parental Family History Reviewed: Yes Children Family History Reviewed: Yes Sibling(s) Family History Reviewed.: Yes Medication/Allergy Home Medications: Aspirin [Aspirin 325 mg Tablet] 325 mg PO DAILY 11/03/16 Atorvastatin Calcium 80 mg PO QHS 11/03/16 Clopidogrel Bisulfate [Clopidogrel] 75 mg PO DAILY 11/03/16 Diphenhydramine HCl [Benadryl 25 mg Capsule] 50 mg PO BID 11/03/16 Ferrous Sulfate [Iron] 325 mg PO DAILY 11/03/16 Furosemide [Lasix] 40 mg PO BID 11/03/16 Gabapentin 2 cap PO Q8 11/03/16 Insulin Glargine,Hum.rec.anlog [Lantus Solostar] 35 unit SQ QHS 11/03/16 Liraglutide [Victoza 2-Jay] 1.8 mg SQ DAILY 11/03/16 Losartan Potassium 25 mg PO DAILY 11/03/16 Metformin HCl 500 mg PO BID 11/03/16 Methocarbamol 2 tab PO Q8 11/03/16 Nitroglycerin 0.4 mg SL ASDIR PRN 11/03/16 Pantoprazole Sodium 40 mg PO DAILY 11/03/16 Potassium Chloride [Klor-Con 10] 20 meq PO Q12 11/03/16 Ranitidine HCl [Zantac] 150 mg PO DAILY 11/03/16 Ranolazine [Ranexa] 500 mg PO Q12 11/03/16 Tamsulosin HCl 0.4 mg PO QHS 11/03/16 Donepezil HCl [Aricept] 10 mg PO DAILY 06/29/17 Finasteride [Proscar 5 mg Tablet] 5 mg PO DAILY 06/29/17 Ipratropium Britt [Atrovent 0.06% Nasal [place]] 1 spray NASL DAILY 06/29/17 Sucralfate [Carafate 1 gm Tablet] 1 gm PO ACHS 06/29/17 Tramadol HCl [Ultram 50 mg Tablet] 50 mg PO Q4HP PRN 06/29/17 Allergies/Adverse Reactions: CURAD ADHESIVE Allergy (Mild, Uncoded 03/10/17 15:19) RASHES Review of Systems Constitutional: PRESENT: as per HPI, fatigue, weight gain Eyes: ABSENT: visual disturbances Ears: ABSENT: hearing changes Cardiovascular: PRESENT: dyspnea on exertion, edema, orthropnea. ABSENT: chest pain, palpitations Respiratory: ABSENT: cough, hemoptysis Gastrointestinal: ABSENT: abdominal pain, constipation, diarrhea, hematemesis, hematochezia, nausea, vomiting Genitourinary: ABSENT: dysuria, hematuria Musculoskeletal: ABSENT: joint swelling Integumentary: ABSENT: rash, wounds Neurological: ABSENT: abnormal gait, abnormal speech, confusion, dizziness, focal weakness, syncope Psychiatric: ABSENT: anxiety, depression, homidical ideation, suicidal ideation Endocrine: ABSENT: cold intolerance, heat intolerance, polydipsia, polyuria Hematologic/Lymphatic: ABSENT: easy bleeding, easy bruising Physical Exam Vital Signs: Temp Pulse Resp BP Pulse Ox 97.8 F 86 18 117/62 95 07/02/17 12:33 07/02/17 14:00 07/02/17 13:54 07/02/17 12:33 07/02/17 13:54 General appearance: PRESENT: cooperative, mild distress, obese Head exam: PRESENT: atraumatic, normocephalic Eye exam: PRESENT: conjunctiva pink, EOMI, PERRLA. ABSENT: scleral icterus Ear exam: PRESENT: normal external ear exam Mouth exam: PRESENT: moist, tongue midline Neck exam: PRESENT: JVD Respiratory exam: PRESENT: accessory muscle use, clear to auscultation [place], crackles. ABSENT: rales, rhonchi, wheezes Cardiovascular exam: PRESENT: gallop, RRR, +S1, +S2. ABSENT: diastolic murmur, rubs, systolic murmur Pulses: PRESENT: normal [place] pedis pul Vascular exam: PRESENT: normal capillary refill GI/Abdominal exam: PRESENT: normal bowel sounds, soft. ABSENT: distended, guarding, mass, organolmegaly, rebound, tenderness Rectal exam: PRESENT: deferred Extremities exam: PRESENT: +1 edema Neurological exam: PRESENT: alert, awake, oriented to person, oriented to place , oriented to time, oriented to situation, CN II-XII grossly intact. ABSENT: motor sensory deficit Psychiatric exam: PRESENT: appropriate affect, normal mood. ABSENT: homicidal ideation, suicidal ideation Skin exam: PRESENT: dry, intact, warm. ABSENT: cyanosis, rash Results Laboratory Results: 07/02/17 08:20 07/02/17 08:20 06/30/17 06/30/17 06/30/17 15:18 15:18 20:40 Creatine Kinase 119 95 CK-MB (CK-2) 1.24 Troponin I 0.015 06/30/17 07/01/17 07/01/17 20:40 02:43 02:43 Creatine Kinase 81 CK-MB (CK-2) 1.86 2.11 Troponin I 0.100 0.294 07/01/17 16:36 Creatine Kinase CK-MB (CK-2) Troponin I 0.220 Impressions: Chest X-Ray 06/28/17 22:27 IMPRESSION: Moderate interstitial markings; differential diagnosis includes pulmonary edema, atypical pneumonitis, and chronic interstitial lung disease. Chest CT 06/29/17 00:00 IMPRESSION: No findings worrisome for interstitial lung disease. Post CABG Abdominal atherosclerotic change of the SMA and celiac artery Assessment & Plan - Diagnosis (1) Acute hypoxemic respiratory failure Is this a current diagnosis for this admission?: Yes Plan: Secondary to pulmonary edema, continue supplemental oxygen, BiPAP and IV loop diuretic (2) Atrial flutter Qualifiers: Atrial flutter type: atypical Qualified Code(s): I48.4 - Atypical atrial flutter Is this a current diagnosis for this admission?: Yes Plan: Optimize rate control with diltiazem, (3) CAD (coronary artery disease) Qualifiers: Coronary Disease-Associated Artery/Lesion type: unspecified vessel or lesion type [place] vs. transplanted heart: [place] heart Associated angina: with unstable angina Qualified Code(s): I25.110 - Atherosclerotic heart disease of [place] coronary artery with unstable angina pectoris Is this a current diagnosis for this admission?: Yes Plan: Serial cardiac enzymes, consider stress test (4) CHF exacerbation Qualifiers: Heart failure type: systolic Qualified Code(s): I50.23 - Acute on chronic systolic (congestive) heart failure Is this a current diagnosis for this admission?: Yes Plan: Obtain recent echo consider repeat. CHF care set ordered - Time Time Spent: 50 to 70 Minutes - Inpatient Certification Medical Necessity: Need Close Monitoring Due to Risk of Patient Decompensation
== END 2017-07-02 14:28 | disposition short-term general hospital (02) | DRG 302 ==
LOC: ER 22:22 → EH 06-29 01:49 → INTOOBSV 06-29 01:49 → 4N 06-29 13:03 → OBSVTOIN 06-30 11:17 → 3W 06-30 23:35
PROVIDERS: ADMIT Internal Medicine; ATTEND Internal Medicine
PROC: 5A09457 Assistance with Respiratory Ventilation, 24-96 Consecutive Hours, Continuous Positive Airway Pressure (ICD-10-PCS; principal; 2017-06-28)
PROC: 3E0F73Z Introduction of Anti-inflammatory into Respiratory Tract, Via Natural or Artificial Opening (ICD-10-PCS; 2017-06-29)
DX: I25.110 Atherosclerotic heart disease of native coronary artery with unstable angina pectoris (principal); J96.01 Acute respiratory failure with hypoxia; I50.23 Acute on chronic systolic (congestive) heart failure; I13.0 Hypertensive heart and chronic kidney disease with heart failure and stage 1 through stage 4 chronic kidney disease, or unspecified chronic kidney disease; J44.1 Chronic obstructive pulmonary disease with (acute) exacerbation; I48.4 Atypical atrial flutter; K55.1 Chronic vascular disorders of intestine; E66.9 Obesity, unspecified; E11.22 Type 2 diabetes mellitus with diabetic chronic kidney disease; I27.20 Pulmonary hypertension, unspecified; N18.9 Chronic kidney disease, unspecified; K21.9 Gastro-esophageal reflux disease without esophagitis; F17.210 Nicotine dependence, cigarettes, uncomplicated; D64.9 Anemia, unspecified; D69.6 Thrombocytopenia, unspecified; G47.33 Obstructive sleep apnea (adult) (pediatric); E78.5 Hyperlipidemia, unspecified; Z82.49 Family history of ischemic heart disease and other diseases of the circulatory system; Z79.4 Long term (current) use of insulin; Z79.899 Other long term (current) drug therapy; Z79.82 Long term (current) use of aspirin; Z95.1 Presence of aortocoronary bypass graft; I25.2 Old myocardial infarction; Z68.39 Body mass index [BMI] 39.0-39.9, adult
CPT/HCPCS: 36415; 71045; 71260; 80048; 80053; 80061; 81001; 82550; 82553; 82962; 83735; 83880; 84443; 84484; 85025; 85027; 93005; 93010; 93306; 94660; 96374; 99291; G0378; J0282; J1160; J1644; J1650; J1815; J1940; J2270; J2920; J3490; J7040; J7060; J7620

== ENCOUNTER 2018-01-26 17:57 | Emergency (ER) | payer OTHER, MEDICARE ==
--- NOTE | 2018-01-26 18:47 | ER Document Report ---
ED General - General Mode of Arrival: Medic Information source: Patient TRAVEL OUTSIDE OF THE [place] IN LAST 30 DAYS: No <NORMA MURILLO - Last Filed: 01/26/18 22:24> <BALTAZARFUNMILAYO Saeed - Last Filed: 01/28/18 03:25> - General Chief Complaint: Low Blood Pressure Stated Complaint: LOW HEART RATE Time Seen by Provider: 01/26/18 18:17 Notes: Patient is a 72-year-old male who was sent to the emergency department from [facility] complaining of bradycarida and hypotension. Patient states that he was following up with Dr. Pa after being admitted in the hospital for orthostatic hypotension when they noticed he had a blood pressure of 70/30 and a heart rate in the 40s. They proceeded to give 1 L of fluid and his heart rate proceeded to drop. Patient states that has been having orthostatic hypotension for a couple of months now. Patient states today he was taken off his lisinopril and metoprolol. Patient denies any chest pain. Patient also mentions falling yesterday due to becoming dizzy but denies any head trauma. (NORMA MURILLO) - Related Data Allergies/Adverse Reactions: CURAD ADHESIVE Allergy (Mild, Uncoded 03/10/17 15:19) RASHES Past Medical History - Social History Smoking Status: Unknown if Ever Smoked Family History: Hypertension - Past Medical History Cardiac Medical History: Reports: Hx Coronary Artery Disease, Hx Heart Attack Endocrine Medical History: Reports: Hx Diabetes Mellitus Type 2 Past Surgical History: Reports: Hx Cardiac Catheterization, Hx Coronary Artery Bypass Graft, Hx Coronary Stent, Other - Numerous coronary stents - Immunizations Hx Diphtheria, Pertussis, Tetanus Vaccination: Yes Hx Pneumococcal Vaccination: 03/30/11 <NORMA MURILLO - Last Filed: 01/26/18 22:24> Review of Systems - Review of Systems Constitutional: See HPI EENT: No symptoms reported Cardiovascular: See HPI, Dizziness Respiratory: No symptoms reported Gastrointestinal: No symptoms reported Genitourinary: No symptoms reported Male Genitourinary: No symptoms reported Musculoskeletal: No symptoms reported Skin: No symptoms reported Hematologic/Lymphatic: No symptoms reported Neurological/Psychological: No symptoms reported <NORMA MURILLO - Last Filed: 01/26/18 22:24> Physical Exam <NORMA MURILLO - Last Filed: 01/26/18 22:24> <FUNMILAYO LEDESMA H - Last Filed: 01/28/18 03:25> - Vital signs Vitals: Resp 16 01/26/18 18:05 - Notes Notes: GENERAL: Alert, interacts well. No acute distress. HEAD: Normocephalic, atraumatic. EYES: Pupils equal, round, and reactive to light. Extraocular movements intact. ENT: Oral mucosa moist, tongue midline. NECK: Full range of motion. Supple. Trachea midline. LUNGS: Clear to auscultation bilaterally, no wheezes, rales, or rhonchi. No respiratory distress. HEART: Distant heart sounds. Mildly bradycardic, with a rate of 57 bpm. No murmurs, gallops, or rubs. ABDOMEN: Soft, non-tender. Non-distended. Bowel sounds present in all 4 quadrants. EXTREMITIES: Moves all 4 extremities spontaneously. 1+ pitting edema which patient states is baseline. NEUROLOGICAL: Alert and oriented x3. Normal speech. PSYCH: Normal affect, normal mood. SKIN: Warm, dry, normal turgor. No rashes or lesions noted. (NORMA MURILLO) Course - Laboratory Result Diagrams: 01/26/18 18:13 01/26/18 18:13 <NORMA MURILLO - Last Filed: 01/26/18 22:24> - Laboratory Result Diagrams: 01/26/18 18:13 01/26/18 18:13 <FUNMILAYO LEDESMA Darlin - Last Filed: 01/28/18 03:25> - Re-evaluation Re-evalutation: 01/26/18 19:38 Patient's labs within normal limits are nonsignificant are trending within patient's baseline. Upon reevaluation the patient is noted to be in the low 40s to high 40s on telemetry. Discussed case with his [facility] physician in [place] Dr. Pa. He states that his heart rate is usually 55-60. Patient denies any chest pain at this time but upon reevaluation does states that he feels like he has double vision but only when reading his phone or looking at far distances. Looking at me standing approximately 4 feet away from him vision experienced. Due to being on anticoagulation will perform CT of head to ensure no acute abnormalities 01/26/18 19:43 Of note, neuro exam revealed no sensory or motor deficits bilateral upper or lower extremities. Pupils were equal round reactive light, EOMI, no nystagmus 01/26/18 21:19 Patient shows small meningioma on head CT otherwise no acute findings. Discussed case with Sherron Castillo who has bed and patient will be transferred at this time. Patient remained hemodynamically stable in the emergency department. 01/26/18 22:40 (FUNMILAYO LEDESMA) - Vital Signs Vital signs: Temp Pulse Resp BP Pulse Ox 98.0 F 14 111/45 L 96 01/27/18 00:44 01/27/18 00:44 01/27/18 00:44 01/27/18 00:44 - Laboratory Laboratory results interpreted by me: 01/26/18 01/26/18 01/26/18 18:13 18:13 18:13 WBC 12.5 H RBC 3.55 L Hgb 11.7 L Hct 35.4 L MCV 100 H RDW 14.6 H Plt Count 146 L Seg Neutrophils % 80.6 H Absolute Neutrophils 10.1 H BUN 34 H Creatinine 1.69 H Est GFR ( Amer) 49 L Est GFR (Non-Af Amer) 40 L Glucose 147 H POC Glucose ALT 15 L NT-Pro-B Natriuret Pep 2280 H 01/26/18 23:11 WBC RBC Hgb Hct MCV RDW Plt Count Seg Neutrophils % Absolute Neutrophils BUN Creatinine Est GFR ( Amer) Est GFR (Non-Af Amer) Glucose POC Glucose 114 H ALT NT-Pro-B Natriuret Pep Discharge <NORMA MURILLO - Last Filed: 01/26/18 22:24> <FUNMILAYO LEDESMA - Last Filed: 01/28/18 03:25> - Discharge Clinical Impression: Bradycardia Hypotension Qualifiers: Hypotension type: unspecified hypotension type Qualified Code(s): I95.9 - Hypotension, unspecified Disposition: Replaced by [facility] Scribe Attestation: 01/28/18 03:25 I personally performed the services described in the documentation, reviewed and edited the documentation which was dictated to the scribe in my presence, and it accurately records my words and actions. (FUNMILAYO LEDESMA) Scribe Documentation - Scribe Written by Scribe:: Carrie Stratton, 01/26/2018 18:51 acting as scribe for :: Baltazar <NORMA MURILLO Last Filed: 01/26/18 22:24>
[2018-01-26 19:12] LABS: ABSOLUTE BASOPHILS # (AUTO) 0.1 10^3/uL (0.0-0.2); ABSOLUTE EOSINOPHILS # (AUTO) 0.1 10^3/uL (0.0-0.6); ABSOLUTE LYMPHOCYTES (AUTO) 1.7 10^3/uL (0.5-4.7); ABSOLUTE MONOCYTES (AUTO) 0.5 10^3/uL (0.1-1.4); ABSOLUTE NEUT (AUTO) 10.1 10^3/uL (1.7-8.2); BASOPHILS % (AUTO) 0.6 % (0-2); EOSINOPHILS % (AUTO) 0.7 % (0-6); HEMATOCRIT 35.4 % (37.9-51.0); HEMOGLOBIN 11.7 g/dL (13.5-17.0); LYMPHOCYTES % (AUTO) 13.9 % (13-45); MEAN CORPUSCULAR HGB CONC 33.2 g/dL (32.0-36.0); MEAN CORPUSCULAR VOLUME 100 fl (80-97); MONOCYTES % (AUTO) 4.2 % (3-13); PLATELET COUNT 146 10^3/uL (150-450); RED BLOOD COUNT 3.55 10^6/uL (4.35-5.55); RED CELL DISTRIBUTION WIDTH 14.6 % (11.5-14.0); SEGMENTED NEUTROPHILS % (AUTO) 80.6 % (42-78); TOTAL CELLS COUNTED % (AUTO) 100 %; WHITE BLOOD COUNT 12.5 10^3/uL (4.0-10.5)
--- NOTE | 2018-01-26 19:12 | RADIOLOGY REPORT (SQ) ---
EXAM DESCRIPTION: CHEST SINGLE VIEW COMPLETED DATE/TIME: 01/26/2018 6:56 pm REASON FOR STUDY: bradycardia, weakness COMPARISON: None. EXAM PARAMETERS: NUMBER OF VIEWS: One view. TECHNIQUE: Single frontal radiographic view of the chest acquired. RADIATION DOSE: NA LIMITATIONS: None. FINDINGS: LUNGS AND PLEURA: No opacities, masses or pneumothorax. No pleural effusion. MEDIASTINUM AND HILAR STRUCTURES: No masses. Contour normal. HEART AND VASCULAR STRUCTURES: Heart size is borderline. No pulmonary edema. BONES: No acute findings. HARDWARE: Sternotomy wires. OTHER: No other significant finding. IMPRESSION: Borderline heart size with no pulmonary edema. TECHNICAL DOCUMENTATION: JOB ID: [id number] [facility]- All Rights Reserved Reading location - IP/workstation name: [email or web address]
[2018-01-26 19:14] LABS: INTERNATIONAL RATION (INR) 0.94; PROTHROMBIN TIME 13.1 SEC (11.4-15.4)
[2018-01-26 19:21] LABS: ALANINE AMINOTRANSFERASE 15 U/L (21-72); ALBUMIN 3.8 g/dL (3.5-5.0); ALKALINE PHOSPHATASE 73 U/L (38-126); ANION GAP 11 (5-19); ASPARTATE AMINO TRANSFERASE 33 U/L (17-59); BILIRUBIN,DIRECT 0.4 mg/dL (0.0-0.4); BILIRUBIN,TOTAL 0.5 mg/dL (0.2-1.3); BLOOD UREA NITROGEN 34 mg/dL (7-20); CALCIUM 8.6 mg/dL (8.4-10.2); CARBON DIOXIDE 26 mmol/L (22-30); CHLORIDE 102 mmol/L (98-107); GLUCOSE 147 mg/dL (75-110); POTASSIUM 4.6 mmol/L (3.6-5.0); SODIUM 139.3 mmol/L (137-145); TOTAL PROTEIN 6.4 g/dL (6.3-8.2)
[2018-01-26 19:32] LABS: TROPONIN I 0.016 ng/mL
--- NOTE | 2018-01-26 20:55 | RADIOLOGY REPORT (SQ) ---
EXAM DESCRIPTION: CT HEAD WITHOUT COMPLETED DATE/TIME: 01/26/2018 8:18 pm REASON FOR STUDY: vision changes COMPARISON: None. TECHNIQUE: Axial images acquired through the brain without intravenous contrast. Images reviewed wi th bone, brain and subdural windows. Additional sagittal and coronal reconstructions were generated. Images stored on PACS. All CT scanners at this facility use dose modulation, iterative reconstruction, and/or weight based d osing when appropriate to reduce radiation dose to as low as reasonably achievable (ALARA). [facility]: Dose Right [facility]: CareDose [facility]: Dose Right [facility]: Teradose 4D [facility]: [employer] RADIATION DOSE: CT Rad equipment meets quality standard of care and radiation dose reduction techniq ues were employed. CTDIvol: 53.2 mGy. DLP: 937 mGy-cm. mGy. LIMITATIONS: None. FINDINGS: VENTRICLES: Normal size and contour. CEREBRUM: There is an 18 mm parafalcine meningioma on the left anteriorly. No midline shift. No hem orrhage. Normal peralta/white matter differentiation. No areas of low density in the white matter. CEREBELLUM: No masses. No hemorrhage. No alteration of density. No evidence for acute infarction. EXTRAAXIAL SPACES: No fluid collections. No masses. ORBITS AND GLOBE: No intra- or extraconal masses. Normal contour of globe without masses. CALVARIUM: No fracture. PARANASAL SINUSES: No fluid or mucosal thickening. SOFT TISSUES: No mass or hematoma. OTHER: No other significant finding. IMPRESSION: There is a small frontal meningioma as described. This is not likely related to the pat ient's vision changes. No acute intracranial imaging findings. EVIDENCE OF ACUTE STROKE: NO. COMMENT: Quality ID # [id number]: Final reports with documentation of one or more dose reduction techniques (e.g., Automated exposure control, adjustment of the mA and/or kV according to patient size, use of iterative reconstruction technique) TECHNICAL DOCUMENTATION: JOB ID: [id number] [employer]- All Rights Reserved Reading location - IP/workstation name: [email or web address]
--- NOTE | 2018-01-27 00:43 | ER Document Report ---
Doctor's Note Notes: 01/27/18 00:42 Transport is here to take the patient to [facility]. Pulse is 48, blood pressure is 120/53, pulse oximetry is 95%. He is stable for transport at this time.
[2018-01-27 00:50] VITALS: BP 111/45
--- NOTE | 2018-01-27 08:19 | EKG REPORT ---
SEVERITY:- BORDERLINE ECG - SINUS BRADYCARDIA LOW VOLTAGE THROUGHOUT BORDERLINE R WAVE PROGRESSION, ANTERIOR LEADS : Confirmed by: Rima Salguero MD 27-Jan-2018 08:17:53
== END 2018-01-27 00:58 | disposition short-term general hospital (02) ==
LOC: ER 17:57
DX: R00.1 Bradycardia, unspecified (principal); I95.9 Hypotension, unspecified; I25.10 Atherosclerotic heart disease of native coronary artery without angina pectoris; E11.9 Type 2 diabetes mellitus without complications
CPT/HCPCS: 36415; 70450; 71045; 80053; 82962; 83735; 83880; 84484; 85025; 85610; 93005; 93010; 99285

== ENCOUNTER 2019-04-19 01:53 | Emergency (ER) | payer OTHER, MEDICARE ==
[2019-04-19 02:35] LABS: ABSOLUTE EOSINOPHILS # (AUTO) 0.1 10^3/uL (0.0-0.6); ABSOLUTE LYMPHOCYTES (AUTO) 0.8 10^3/uL (0.5-4.7); ABSOLUTE MONOCYTES (AUTO) 0.4 10^3/uL (0.1-1.4); ABSOLUTE NEUT (AUTO) 5.2 10^3/uL (1.7-8.2); BASOPHILS % (AUTO) 0.3 % (0-2); EOSINOPHILS % (AUTO) 1.4 % (0-6); HEMATOCRIT 32.9 % (37.9-51.0); MEAN CORPUSCULAR HEMOGLOBIN 31.9 pg (27.0-33.4); MEAN CORPUSCULAR HGB CONC 33.6 g/dL (32.0-36.0); MEAN CORPUSCULAR VOLUME 95 fl (80-97); MONOCYTES % (AUTO) 6.1 % (3-13); PLATELET COUNT 130 10^3/uL (150-450); RED BLOOD COUNT 3.47 10^6/uL (4.35-5.55); RED CELL DISTRIBUTION WIDTH 14.4 % (11.5-14.0); SEGMENTED NEUTROPHILS % (AUTO) 80.2 % (42-78); TOTAL CELLS COUNTED % (AUTO) 100 %; WHITE BLOOD COUNT 6.4 10^3/uL (4.0-10.5)
--- NOTE | 2019-04-19 02:38 | ER Document Report ---
ED General - General Chief Complaint: Shortness Of Breath Stated Complaint: SHORTNESS OF BREATHE,WEAKNESS Time Seen by Provider: 04/19/19 02:27 Primary Care Provider: CRISTIAN GROVES MD [Primary Care Provider] - Follow up as needed Notes: Patient is a 73-year-old male that comes emergency department with multiple com plaints. Chief complaint is abdominal pain and an episode of vomiting that started earlier tonight. Patient also states he feels weak and feels like he cannot stand up, he also states that he feels slightly more short of breath than usual. Patient was discharged from [facility] after being admitted for CHF exacerbation and having diuresis, he also has a history of type 2 diabetes, CABG with multiple stents. He denies any abdominal surgeries. Patient states he feels a lot better after vomiting. He lives at home with his family, family at bedside. TRAVEL OUTSIDE OF THE [place] IN LAST 30 DAYS: No - Related Data Allergies/Adverse Reactions: CURAD ADHESIVE Allergy (Mild, Uncoded 04/19/19 05:38) RASHES Home Medications: eliquis 5mg po daily. donepezil 10 mg po daily. lasix 40mg po daily. maalox prn. asa 81mg po daily. atorvastatin 80mg po daily. benzonatate 100mg po tid. docusate 100mg po daily. finasteride 5mg po daily. ferrous sulfate 325mg po daily. gabapentin 600mg potid. lantus 35units sq daily. ipratropium bromide nasal spray 2 sprays tid. victoza 1.8mg sq daily. losartan 25mg po daily. metformin 500mg po bid. methocarbamol 750mg po tid. ntg 0.3mg sl prn. kcl er 10meq 2 po daily. zantac 150mg po daily. renexa 500mg pobid. sucralfate 1gm po qid. tamsulosin 0.4mg 2 podaily. tramadol 50mg po q4 hrs prn. vitamin d3 89416 units po daily. prevacid 30mg po bid Past Medical History - General Information source: Patient - Social History Smoking Status: Former Smoker Chew tobacco use (# tins/day): No Frequency of alcohol use: Occasional Drug Abuse: None Lives with: Family Family History: Hypertension Patient has suicidal ideation: No Patient has homicidal ideation: No - Past Medical History Cardiac Medical History: Reports: Hx Atrial Fibrillation, Hx Congestive Heart Failure, Hx Coronary Artery Disease, Hx Heart Attack Denies: Hx Hypertension - LOW PRESSURE Pulmonary Medical History: Denies: Hx Asthma, Hx Bronchitis, Hx COPD, Hx Pneumonia Neurological Medical History: Denies: Hx Cerebrovascular Accident, Hx Seizures Endocrine Medical History: Reports: Hx Diabetes Mellitus Type 2 Renal/ Medical History: Denies: Hx Peritoneal Dialysis Musculoskeletal Medical History: Denies Hx Arthritis Psychiatric Medical History: Denies: Hx Depression Past Surgical History: Reports: Hx Cardiac Catheterization, Hx Cardiac Surgery, Hx Coronary Artery Bypass Graft, Hx Coronary Stent, Other - Numerous coronary stents - Immunizations Hx Diphtheria, Pertussis, Tetanus Vaccination: Yes Hx Pneumococcal Vaccination: 03/30/11 Review of Systems - Review of Systems Constitutional: See HPI EENT: No symptoms reported Cardiovascular: See HPI Respiratory: No symptoms reported Gastrointestinal: See HPI Genitourinary: No symptoms reported Male Genitourinary: No symptoms reported Musculoskeletal: No symptoms reported Skin: No symptoms reported Hematologic/Lymphatic: No symptoms reported Neurological/Psychological: No symptoms reported Physical Exam - Vital signs Vitals: Temp Pulse Resp BP Pulse Ox 97.8 F 60 16 115/52 L 99 04/19/19 02:05 04/19/19 02:05 04/19/19 02:05 04/19/19 02:05 04/19/19 02:05 - Notes Notes: GENERAL: Alert, interacts well. No acute distress. Very jovial, talking and laughing HEAD: Normocephalic, atraumatic. EYES: Pupils equal, round, and reactive to light. Extraocular movements intact. ENT: Oral mucosa moist, tongue midline. Oropharynx unremarkable. Airway patent. NECK: Full range of motion. Supple. Trachea midline. LUNGS: Clear to auscultation bilaterally, no wheezes, rales, or rhonchi. No respiratory distress. HEART: Regular rate and rhythm. No murmur ABDOMEN: Soft, non-tender. Non-distended. Bowel sounds present in all 4 quadrants. GENITOURINARY: Deferred EXTREMITIES: Moves all 4 extremities spontaneously. No edema, normal radial and dorsalis pedis pulses bilaterally. No cyanosis. BACK: no cervical, thoracic, lumbar midline tenderness. No saddle anesthesia, normal distal neurovascular exam. Moves all extremities in full range of motion. NEUROLOGICAL: Alert and oriented x3. Normal speech. Cranial nerves II through XII grossly intact. PSYCH: Normal affect, normal mood. Elevated mood SKIN: Warm, dry, normal turgor. No rashes or lesions noted. Course - Re-evaluation Re-evalutation: Patient has some mild upper abdominal tenderness on exam, clear lungs, he is very talkative, laughing, oriented, well-appearing. Vital signs are unrem arkable with no hypoxia, no tachycardia, no hypotension, no fever. Chest x-ray unremarkable, EKG without significant change from prior, troponin negative, BNP similar compared to prior, CBC, chemistry, lipase nonspecific except for hyperkalemia at 6.0. Creatinine is approximately baseline but BUN is slightly elevated. CT of the abdomen pelvis was performed because of abdominal pain, vomiting episode, and patient's age. This shows some constipation but no acute findings. Discussed with patient. He was recently taken off his regular Lasix dose and started on half of the regular dose without change in his potassium intake. This along with his constipation is most likely contributing to his hyperkalemia. Patient has no EKG changes from hyperkalemia. Patient was given insulin, dextrose, calcium gluconate, and Valtassa after discussing treatment options with Dr. Borrero. Given small amount of IV fluids. Discussed disposition with Dr. Borrero as well. Patient is already requesting to leave to go to his cardiology appointment later today, he has no current symptoms, he tolerated p.o. without any difficulty. Plan is to repeat potassium, repeat troponin, if there is no significant change and patient does not decompensate patient will be discharged for close follow-up and return precautions. Potassium 5.1 on recheck, troponin negative, patient still asymptomatic and ready to leave. He was discharged with return precautions. - Vital Signs Vital signs: Temp Pulse Resp BP Pulse Ox 97.8 F 60 21 H 112/58 L 95 04/19/19 06:31 04/19/19 02:05 04/19/19 06:31 04/19/19 06:31 04/19/19 06:31 - Laboratory Result Diagrams: 04/19/19 02:16 04/19/19 05:32 Laboratory results interpreted by me: 04/19/19 04/19/19 04/19/19 02:16 02:16 02:16 RBC 3.47 L Hgb 11.0 L Hct 32.9 L RDW 14.4 H Plt Count 130 L Lymph % (Auto) 12.0 L Seg Neutrophils % 80.2 H Potassium 6.0 H* BUN 45 H Creatinine 1.51 H Est GFR ( Amer) 55 L Est GFR (MDRD) Non-Af 46 L Glucose 153 H Calcium NT-Pro-B Natriuret Pep 2740 H Total Protein 6.0 L 04/19/19 05:32 RBC Hgb Hct RDW Plt Count Lymph % (Auto) Seg Neutrophils % Potassium 5.1 H BUN 45 H Creatinine 1.40 H Est GFR ( Amer) Est GFR (MDRD) Non-Af 50 L Glucose 132 H Calcium 8.2 L NT-Pro-B Natriuret Pep Total Protein - EKG Interpretation by Me Additional EKG results interpreted by me: EKG shows Atrial paced rhythm at a rate of 60. QTC of 448. WA interval slightly prolonged at 204. No T wave inversions or ST segment changes in consecutive leads Discharge - Discharge Clinical Impression: Weakness, Hyperkalemia, Upper abdominal pain Condition: Stable Disposition: HOME, SELF-CARE Additional Instructions: Your heart and lung work-up today does not show any concerning change or conc erning finding. Your potassium was very high at 6.0, however after treatments here including Veltassa and IV medications your potassium repeat was 5.1. I recommend that you cut your oral potassium dosing in half because your Lasix dosing has been cut in half. Your imaging shows some constipation but no concerning findings. I recommend MiraLAX or similar stool softener for the next 3 days or so. Follow closely with your primary care provider and cardiology for additional management. Return if you worsening including returned or severe abdominal pain, fever, return vomiting, chest pain, passing out, or any other concerning symptoms. Referrals: CRISTIAN GROVES MD [Primary Care Provider] - Follow up as needed
--- NOTE | 2019-04-19 02:45 | RADIOLOGY REPORT (SQ) ---
CLINICAL HISTORY: sob COMPARISON: None. 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 Left AICD is present. Lungs are clear without consolidation, atelectasis, mass or edema. There is no pleural effusion. There is no pneumothorax. There are no acute osseous findings. IMPRESSION: Clear lungs.
[2019-04-19 03:03] LABS: ALBUMIN 3.6 g/dL (3.5-5.0); ALKALINE PHOSPHATASE 74 U/L (38-126); ANION GAP 9 (5-19); ASPARTATE AMINO TRANSFERASE 29 U/L (17-59); BILIRUBIN,DIRECT 0.1 mg/dL (0.0-0.4); BILIRUBIN,TOTAL 0.3 mg/dL (0.2-1.3); BLOOD UREA NITROGEN 45 mg/dL (7-20); CALCIUM 8.4 mg/dL (8.4-10.2); CARBON DIOXIDE 25 mmol/L (22-30); CHLORIDE 106 mmol/L (98-107); GLUCOSE 153 mg/dL (75-110)
[2019-04-19 03:09] LABS: NT PRO BNP 2740 pg/mL (<125)
[2019-04-19 03:18] LABS: TROPONIN I < 0.012 ng/mL
[2019-04-19] MEDS ORDERED: DEXTROSE 50%-WATER 25 GM/50 ML DISP.SYRIN IV ONE (03:18)
[2019-04-19] MEDS ORDERED: INSULIN REG, HUMAN 100 UNIT/ML 3 ML VIAL (PYX) IV ONE (03:18)
[2019-04-19] MEDS ORDERED: CALCIUM GLUCONATE 1000 MG/10 ML INJ IV ONE (03:18)
--- NOTE | 2019-04-19 04:32 | RADIOLOGY REPORT (SQ) ---
CLINICAL HISTORY: abd pain, vomiting COMPARISON: None. TECHNIQUE: CT ABDOMEN PELVIS WITH IV CONTRAST on 04/19/2019 3:21 AM LABEL TACKER This exam was performed according to our departmental dose-optimization program, which includes automated exposure control, adjustment of the mA and/or kV according to patient size and/or use of iterative reconstruction technique. FINDINGS: Lower lungs are clear. Abdomen: The liver is normal in appearance. There is no biliary dilatation. Gallbladder is not well-seen. The pancreas and spleen are normal in appearance. Adrenal glands are normal. Kidneys are moderately atrophic. There is a small cyst in the lower pole of the right kidney. Abdominal aorta is normal in course and caliber without aneurysm. There is no free air. There is no retroperitoneal adenopathy. Pelvis: There is moderate amount of stool throughout the colon. There is mild distal colonic diverticulosis. Urinary bladder is unremarkable. There is no free fluid. Appendix is normal. Skeleton: There are no acute osseous findings. No suspicious bony lesions. Lower lumbar fusion was performed. IMPRESSION: No acute inflammatory process.
[2019-04-19] MEDS ORDERED: NORMAL SALINE 500 ML IV ONE (04:45)
[2019-04-19] MEDS ORDERED: PATIROMER 8.4 GM SUSP PACKET PO SCH (05:00)
[2019-04-19] MEDS ORDERED: PATIROMER 8.4 GM SUSP PACKET ONE (05:09)
[2019-04-19 06:14] LABS: ANION GAP 11 (5-19); BLOOD UREA NITROGEN 45 mg/dL (7-20); CALCIUM 8.2 mg/dL (8.4-10.2); CARBON DIOXIDE 25 mmol/L (22-30); CHLORIDE 105 mmol/L (98-107); GLUCOSE 132 mg/dL (75-110); POTASSIUM 5.1 mmol/L (3.6-5.0)
[2019-04-19 06:57] VITALS: BP 112/58
--- NOTE | 2019-04-19 07:03 | EKG REPORT ---
SEVERITY:- ABNORMAL ECG - ATRIAL-PACED RHYTHM LOW VOLTAGE THROUGHOUT CONSIDER ANTEROSEPTAL INFARCT : Confirmed by: Lalo Keller MD 19-Apr-2019 07:03:27
== END 2019-04-19 06:58 | disposition home or self-care (01) ==
LOC: ER 01:53
DX: E87.5 Hyperkalemia (principal); R53.1 Weakness; R10.10 Upper abdominal pain, unspecified; R06.02 Shortness of breath; R10.9 Unspecified abdominal pain; R11.10 Vomiting, unspecified; Z79.899 Other long term (current) drug therapy; Z88.8 Allergy status to other drugs, medicaments and biological substances; I50.9 Heart failure, unspecified; E11.9 Type 2 diabetes mellitus without complications; Z87.891 Personal history of nicotine dependence; I48.91 Unspecified atrial fibrillation; I25.10 Atherosclerotic heart disease of native coronary artery without angina pectoris; I25.2 Old myocardial infarction
CPT/HCPCS: 93005; 99285; 96374; 96375; 36415; 83690; 85025; 80053; 84484; 83880; 71045; 74177; 93010; J0610; J3490 ×2; J1815; J7040

== ENCOUNTER 2019-06-17 13:22 | Emergency (ER) | payer OTHER, MEDICARE ==
[2019-06-17 14:21] LABS: ABSOLUTE EOSINOPHILS # (AUTO) 0.1 10^3/uL (0.0-0.6); ABSOLUTE MONOCYTES (AUTO) 0.4 10^3/uL (0.1-1.4); ABSOLUTE NEUT (AUTO) 5.3 10^3/uL (1.7-8.2); BASOPHILS % (AUTO) 0.6 % (0-2); EOSINOPHILS % (AUTO) 2.1 % (0-6); HEMATOCRIT 35.8 % (37.9-51.0); HEMOGLOBIN 12.1 g/dL (13.5-17.0); LYMPHOCYTES % (AUTO) 13.9 % (13-45); MEAN CORPUSCULAR HGB CONC 33.8 g/dL (32.0-36.0); MEAN CORPUSCULAR VOLUME 95 fl (80-97); MONOCYTES % (AUTO) 6.3 % (3-13); PLATELET COUNT 147 10^3/uL (150-450); RED BLOOD COUNT 3.77 10^6/uL (4.35-5.55); RED CELL DISTRIBUTION WIDTH 15.9 % (11.5-14.0); SEGMENTED NEUTROPHILS % (AUTO) 77.1 % (42-78); TOTAL CELLS COUNTED % (AUTO) 100 %; WHITE BLOOD COUNT 6.9 10^3/uL (4.0-10.5)
[2019-06-17 14:38] LABS: ALBUMIN 3.7 g/dL (3.5-5.0); ALKALINE PHOSPHATASE 79 U/L (38-126); ANION GAP 8 (5-19); ASPARTATE AMINO TRANSFERASE 49 U/L (17-59); BILIRUBIN,TOTAL 0.4 mg/dL (0.2-1.3); BLOOD UREA NITROGEN 27 mg/dL (7-20); CALCIUM 8.7 mg/dL (8.4-10.2); CARBON DIOXIDE 29 mmol/L (22-30); CHLORIDE 102 mmol/L (98-107); CREATINE KINASE 36 U/L (55-170); GLUCOSE 139 mg/dL (75-110); POTASSIUM 5.1 mmol/L (3.6-5.0); TOTAL PROTEIN 6.2 g/dL (6.3-8.2)
--- NOTE | 2019-06-17 14:43 | RADIOLOGY REPORT (SQ) ---
EXAM DESCRIPTION: CT HEAD WITHOUT COMPLETED DATE/TIME: 06/17/2019 2:21 pm REASON FOR STUDY: Head trauma anticoagulated COMPARISON: None. TECHNIQUE: Axial images acquired through the brain without intravenous contrast. Images reviewed wi th bone, brain and subdural windows. Additional sagittal and coronal reconstructions were generated. Images stored on PACS. All CT scanners at this facility use dose modulation, iterative reconstruction, and/or weight based d osing when appropriate to reduce radiation dose to as low as reasonably achievable (ALARA). [facility]: Dose Right [facility]: CareDose [facility]: Dose Right [facility]: Teradose 4D [facility]: [employer] RADIATION DOSE: CT Rad equipment meets quality standard of care and radiation dose reduction techniq ues were employed. CTDIvol: 53.2 mGy. DLP: 991 mGy-cm. mGy. LIMITATIONS: None. FINDINGS: VENTRICLES: Normal size and contour. CEREBRUM: No masses. No hemorrhage. No midline shift. No evidence for acute infarction. Normal gra y/white matter differentiation. No areas of low density in the white matter. CEREBELLUM: No masses. No hemorrhage. No alteration of density. No evidence for acute infarction. EXTRAAXIAL SPACES: No fluid collections. No masses. ORBITS AND GLOBE: No intra- or extraconal masses. Normal contour of globe without masses. CALVARIUM: No fracture. PARANASAL SINUSES: Minimal debris left maxillary sinus. SOFT TISSUES: No mass or hematoma. OTHER: No other significant finding. IMPRESSION: NORMAL BRAIN CT WITHOUT CONTRAST. EVIDENCE OF ACUTE STROKE: NO. COMMENT: Quality ID # [id number]: Final reports with documentation of one or more dose reduction techniques (e.g., Automated exposure control, adjustment of the mA and/or kV according to patient size, use of iterative reconstruction technique) TECHNICAL DOCUMENTATION: JOB ID: [id number] 2010 [employer]- All Rights Reserved Reading location - IP/workstation name: [email or web address]
--- NOTE | 2019-06-17 15:06 | ER Document Report ---
Entered by ALICIA MOLINA SCRIBE 06/17/19 1346 Acting as scribe for:LULA REEDER MD ED General - General Stated Complaint: FALL/WEAKNESS Primary Care Provider: CRISTIAN GROVES MD [NO LOCAL MD] - Follow up as needed Mode of Arrival: Medic Information source: Patient Notes: This 73-year-old male patient presents to the emergency department today with complaints of a fall that occurred just prior to arrival. Patient states that he just became generally weak all over and collapsed to the ground. Patient states this has happened around 10 times over the last few years and this is not seymour unusual. Patient denies any pain resulting from the fall including neck or back pain. He did strike his right zygomatic region and has a minor skin tear. He does take Eliquis. He states he has weakness to his upper and lower extremities at this time, but this is a common occurrence that persists after the fall, often for several hours. He does not use a walker because when the weakness comes on, it is so profound he is not even able to lean against the wall to support himself. TRAVEL OUTSIDE OF THE [place] IN LAST 30 DAYS: No - Related Data Allergies/Adverse Reactions: lisinopril Allergy (Verified 06/17/19 14:48) CURAD ADHESIVE Allergy (Mild, Uncoded 04/19/19 05:38) RASHES Past Medical History - General Information source: Patient - Social History Smoking Status: Never Smoker Cigarette use (# per day): No Frequency of alcohol use: None Drug Abuse: None Lives with: Family Family History: Reviewed & Not Pertinent, Hypertension - Past Medical History Cardiac Medical History: Reports: Hx Atrial Fibrillation, Hx Congestive Heart Failure, Hx Coronary Artery Disease, Hx Heart Attack Endocrine Medical History: Reports: Hx Diabetes Mellitus Type 2 Past Surgical History: Reports: Hx Cardiac Catheterization, Hx Cardiac Surgery, Hx Coronary Artery Bypass Graft, Hx Coronary Stent, Other - Numerous coronary stents - Immunizations Hx Diphtheria, Pertussis, Tetanus Vaccination: Yes Hx Pneumococcal Vaccination: 03/30/11 Review of Systems - Review of Systems Constitutional: See HPI, Weakness - with fall EENT: No symptoms reported Cardiovascular: No symptoms reported Respiratory: No symptoms reported Gastrointestinal: No symptoms reported Genitourinary: No symptoms reported Male Genitourinary: No symptoms reported Musculoskeletal: denies: Back pain, Neck pain Skin: No symptoms reported Hematologic/Lymphatic: No symptoms reported Neurological/Psychological: No symptoms reported -: Yes All other systems reviewed and negative Physical Exam - Notes Notes: Physical Exam: General: Alert, obese, skin is pale. HEENT: Normocephalic. PERRL. Extraocular movements intact. Oropharynx clear. Conjunctiva are pale. Neck: Supple. Non-tender. Respiratory: No respiratory distress. Clear and equal breath sounds bilaterally. Cardiovascular: Regular rate and rhythm. Abdominal: Obese. Non-tender. No distension. Normal Bowel Sounds. Back: No gross abnormalities. Extremities: Moves all four extremities. Upper extremities: See skin exam Lower extremities: Trace edema. Normal ROM. Neurological: Normal cognition. AAOx4. Normal speech. Psychological: Normal affect. Normal Mood. Skin: 1cm laceration/abrasion over the right zygoma near the lateral orbit. Contusion/Abrasion over the right elbow. Skin tear over right ulnar forearm. Course - Laboratory Result Diagrams: 06/17/19 14:05 06/17/19 14:05 Laboratory results interpreted by me: 06/17/19 06/17/19 14:05 14:05 RBC 3.77 L Hgb 12.1 L Hct 35.8 L RDW 15.9 H Plt Count 147 L Potassium 5.1 H BUN 27 H Glucose 139 H Creatine Kinase 36 L Total Protein 6.2 L - Diagnostic Test Radiology reviewed: Image reviewed, Reports reviewed - CT scan of the head without contrast is unremarkable. No bony abnormality to the right zygomatic bone. Minimal debris in the left maxillary sinus. Discharge - Discharge Clinical Impression: Skin tear of face Fall Qualifiers: Encounter type: initial encounter Qualified Code(s): W19.XXXA - Unspecified fall, initial encounter Facial contusion Qualifiers: Encounter type: initial encounter Qualified Code(s): S00.83XA - Contusion of other part of head, initial encounter Condition: Stable Disposition: HOME, SELF-CARE Additional Instructions: Keep the wound to your right face. Ice packs to help reduce swelling. Follow-up with your primary care provider as needed RETURN TO THE EMERGENCY ROOM IF ANY NEW OR WORSENING SYMPTOMS. Referrals: CRISTIAN GROVES MD [NO LOCAL MD] - Follow up as needed I personally performed the services described in the documentation, reviewed and edited the documentation which was dictated to the scribe in my presence, and it accurately records my words and actions.
[2019-06-17] MEDS ORDERED: NORMAL SALINE 1000 ML 500 ML IV PRN (16:24)
[2019-06-17 18:55] VITALS: BP 103/61
== END 2019-06-17 17:00 | disposition home or self-care (01) ==
LOC: ER 13:22
DX: S00.83XA Contusion of other part of head, initial encounter (principal); S01.81XA Laceration without foreign body of other part of head, initial encounter; W19.XXXA Unspecified fall, initial encounter; R53.1 Weakness; I48.91 Unspecified atrial fibrillation; I50.9 Heart failure, unspecified; E11.9 Type 2 diabetes mellitus without complications; Z79.02 Long term (current) use of antithrombotics/antiplatelets; Z95.1 Presence of aortocoronary bypass graft; I25.2 Old myocardial infarction
CPT/HCPCS: 99285; 96360; 36415; 82550; 85025; 80053; 84484; 70450; J7030

== ENCOUNTER 2020-01-09 16:04 | Observation (INO) | payer MEDICARE ==
--- NOTE | 2020-01-09 16:26 | RADIOLOGY REPORT (SQ) ---
EXAM DESCRIPTION: CT HEAD WITHOUT IMAGES COMPLETED DATE/TIME: 01/09/2020 4:14 pm REASON FOR STUDY: bed 3 stroke alert COMPARISON: None. TECHNIQUE: Axial images acquired through the brain without intravenous contrast. Images reviewed wi th bone, brain and subdural windows. Additional sagittal and coronal reconstructions were generated. Images stored on PACS. All CT scanners at this facility use dose modulation, iterative reconstruction, and/or weight based d osing when appropriate to reduce radiation dose to as low as reasonably achievable (ALARA). [facility]: Dose Right [facility]: CareDose [facility]: Dose Right [facility]: Teradose 4D [facility]: Estadeboda RADIATION DOSE: CT Rad equipment meets quality standard of care and radiation dose reduction techniq ues were employed. CTDIvol: 53.2 mGy. DLP: 1017 mGy-cm. mGy. LIMITATIONS: None. FINDINGS: VENTRICLES: Prominent. CEREBRUM: No masses. No hemorrhage. No midline shift. Areas of low density in the white matter mos t likely due to chronic micro-vascular ischemic change. No evidence for acute infarction. CEREBELLUM: No masses. No hemorrhage. No alteration of density. No evidence for acute infarction. EXTRAAXIAL SPACES: Mild age-related involutional change. No fluid collections. No masses. ORBITS AND GLOBE: No intra- or extraconal masses. Normal contour of globe without masses. CALVARIUM: No fracture. PARANASAL SINUSES: No fluid or mucosal thickening. SOFT TISSUES: No mass or hematoma. OTHER: No other significant finding. IMPRESSION: MILD CHRONIC CHANGES OF ATROPHY AND MICROVASCULAR ISCHEMIA. NO ACUTE PROCESS. EVIDENCE OF ACUTE STROKE: NO. COMMENT: Pertinent positive or negative findings of the imaging study reported as a CRITICAL EXAM t ian Hart at16:19 on 01/09/2020. Category of Critical Exam: Stroke alert. TECHNICAL DOCUMENTATION: JOB ID: [id number] Quality ID # [id number]: Final reports with documentation of one or more dose reduction techniques (e.g., Au tomated exposure control, adjustment of the mA and/or kV according to patient size, use of iterative reconstruction technique) 2010 [employer] All Rights Reserved Reading location - IP/workstation name: [email or web address]
--- NOTE | 2020-01-09 16:30 | RADIOLOGY REPORT (SQ) ---
EXAM DESCRIPTION: CHEST SINGLE VIEW IMAGES COMPLETED DATE/TIME: 01/09/2020 4:18 pm REASON FOR STUDY: bed 3 stroke alert COMPARISON: 04/19/2019 EXAM PARAMETERS: NUMBER OF VIEWS: One view. TECHNIQUE: Single frontal radiographic view of the chest acquired. RADIATION DOSE: NA LIMITATIONS: Low lung volumes. FINDINGS: LUNGS AND PLEURA: No opacities, masses or pneumothorax. No pleural effusion. MEDIASTINUM AND HILAR STRUCTURES: No masses. Contour normal. HEART AND VASCULAR STRUCTURES: Heart normal in size. Normal vasculature. BONES: No acute findings. HARDWARE: Unchanged. OTHER: No other significant finding. IMPRESSION: Negative chest allowing for low lung volumes. TECHNICAL DOCUMENTATION: JOB ID: [id number] 2010 [employer]- All Rights Reserved Reading location - IP/workstation name: [email or web address]
[2020-01-09 16:41] LABS: INTERNATIONAL RATION (INR) 1.36; PROTHROMBIN TIME 16.9 SEC (11.4-15.4)
[2020-01-09 16:42] LABS: PARTIAL THROMBOPLASTIN TIME 35.6 SEC (23.5-35.8)
[2020-01-09] MEDS ORDERED: NORMAL SALINE 1000 ML 1,000 ML IV ONE ×2 (16:47→18:34)
[2020-01-09 16:52] LABS: ABSOLUTE EOSINOPHILS # (AUTO) 0.2 10^3/uL (0.0-0.6); ABSOLUTE MONOCYTES (AUTO) 0.4 10^3/uL (0.1-1.4); ABSOLUTE NEUT (AUTO) 6.1 10^3/uL (1.7-8.2); BASOPHILS % (AUTO) 0.3 % (0-2); EOSINOPHILS % (AUTO) 2.1 % (0-6); HEMATOCRIT 29.8 % (37.9-51.0); HEMOGLOBIN 9.9 g/dL (13.5-17.0); MEAN CORPUSCULAR HEMOGLOBIN 32.8 pg (27.0-33.4); MEAN CORPUSCULAR HGB CONC 33.1 g/dL (32.0-36.0); MEAN CORPUSCULAR VOLUME 99 fl (80-97); MONOCYTES % (AUTO) 4.6 % (3-13); PLATELET COUNT 155 10^3/uL (150-450); RED BLOOD COUNT 3.01 10^6/uL (4.35-5.55); RED CELL DISTRIBUTION WIDTH 14.4 % (11.5-14.0); TOTAL CELLS COUNTED % (AUTO) 100 %; WHITE BLOOD COUNT 7.6 10^3/uL (4.0-10.5)
--- NOTE | 2020-01-09 16:58 | ER Document Report ---
ED General - General Stated Complaint: WEAKNESS Time Seen by Provider: 01/09/20 16:35 Primary Care Provider: CRISTIAN GROVES MD [Primary Care Provider] - Follow up as needed TRAVEL OUTSIDE OF THE [place] IN LAST 30 DAYS: No - HPI Notes: Chief complaint: Altered mental status History of present illness: 74-year-old male with history of stage III renal disease congestive heart failure, COPD was having acute diarrheal illness last week and was apparently admitted to a hospital in [facility] where he received IV fluids and after improvement he was discharged home. He is continue to feel somewhat weak over the last several days. Patient became "unresponsive" at home this afternoon and family called EMS. No tonic-clonic movements are described. No vomiting reported. - Related Data Allergies/Adverse Reactions: lisinopril Allergy (Verified 01/09/20 20:43) CURAD ADHESIVE Allergy (Mild, Uncoded 04/19/19 05:38) RASHES Past Medical History - General Information source: Relative, [facility] Records Cannot obtain history due to: Altered mental status - Social History Smoking Status: Smoker,Current Status Unk Family History: Reviewed & Not Pertinent, Hypertension - Past Medical History Cardiac Medical History: Reports: Hx Atrial Fibrillation, Hx Congestive Heart Failure, Hx Coronary Artery Disease, Hx Heart Attack Denies: Hx Hypertension - LOW PRESSURE Pulmonary Medical History: Denies: Hx Asthma, Hx Bronchitis, Hx COPD, Hx Pneumonia Neurological Medical History: Denies: Hx Cerebrovascular Accident, Hx Seizures Endocrine Medical History: Reports: Hx Diabetes Mellitus Type 2 Renal/ Medical History: Denies: Hx Peritoneal Dialysis Musculoskeletal Medical History: Denies Hx Arthritis Psychiatric Medical History: Denies: Hx Depression Past Surgical History: Reports: Hx Cardiac Catheterization, Hx Cardiac Surgery, Hx Coronary Artery Bypass Graft, Hx Coronary Stent, Other - Numerous coronary stents - Immunizations Hx Diphtheria, Pertussis, Tetanus Vaccination: Yes Hx Pneumococcal Vaccination: 03/30/11 Review of Systems - Review of Systems -: Yes ROS unobtainable due to patient's medical condition Physical Exam - Vital signs Vitals: Temp Pulse Resp BP Pulse Ox 97.6 F 70 18 100/62 96 01/09/20 16:04 01/09/20 16:04 01/09/20 16:04 01/09/20 16:04 01/09/20 16:04 - Notes Notes: GENERAL: Elderly man seen on stretcher via EMS for code stroke alert who is minimally responsive. SKIN: Cool and pale. Good turgor no rashes. HEAD: Normocephalic atraumatic. EYES: PERRLA. Conjugate gaze. Conjunctivae and sclerae clear. EARS: CANALS AND TMS CLEAR. NOSE: CLEAR. MOUTH: Moist mucosa. Good dentition. No stridor or edema. No drooling. Gag reflex intact. NECK: Supple. No masses or thyromegaly. No adenopathy. Carotids 2+ without bruits. No JVD. BACK: Symmetrical without tenderness. CHEST: Respirations unlabored. Breath sounds clear and symmetrical. HEART: Regular rhythm. No murmur gallop or rub. ABDOMEN: Obese. Soft nontender without masses, organomegaly or rebound. Bowel sounds normally active. No bruits. GENITALIA: Deferred. EXTREMITIES: No edema. No calf tenderness. Cap refill less than 1.5 seconds. Dorsalis pedis and posterior tibial pulses 3+ and symmetrical. NEUROLOGICAL: Eyes open spontaneously. Moving all 4 extremities symmetrically. Gizzard Peeler hand on verbal command. Nonverbal initially. GCS 10. Course - Re-evaluation Re-evalutation: 01/09/20 21:59 This man did not have any lateralization to suggest a stroke. He looks like he could have a metabolic disturbance or potentially be septic. Also consider the possibility that he could be postictal. Head CT and chest x-ray were unremarkable. He has some CO2 retention and mild respiratory acidosis. He is known to have COPD. He is placed on BiPAP and will be admitted by the hospitalist service. He is mildly anemic. His white count is not significantly elevated. He has mild renal insufficiency with a creatinine of 1.22. - Vital Signs Vital signs: Temp Pulse Resp BP Pulse Ox 97.6 F 67 16 120/70 98 01/09/20 16:47 01/09/20 18:00 01/09/20 21:01 01/09/20 21:01 01/09/20 21:01 - Laboratory Result Diagrams: 01/09/20 16:23 01/09/20 16:23 Laboratory results interpreted by me: 01/09/20 01/09/20 01/09/20 16:23 16:23 16:23 RBC 3.01 L Hgb 9.9 L Hct 29.8 L MCV 99 H RDW 14.4 H Seg Neutrophils % 80.0 H PT 16.9 H Carbonic Acid ABG pH ABG pCO2 ABG pO2 ABG HCO3 ABG Total CO2 ABG O2 Saturation BUN 34 H Est GFR (MDRD) Non-Af 59 L Calcium 8.2 L Ammonia Creatine Kinase 30 L Total Protein 4.8 L Albumin 2.9 L 01/09/20 01/09/20 20:00 20:12 RBC Hgb Hct MCV RDW Seg Neutrophils % PT Carbonic Acid 1.66 H ABG pH 7.31 L ABG pCO2 55.1 H ABG pO2 136.4 H ABG HCO3 26.9 H ABG Total CO2 28.6 H ABG O2 Saturation 98.4 H BUN Est GFR (MDRD) Non-Af Calcium Ammonia < 8.7 L Creatine Kinase Total Protein Albumin Discharge - Discharge Clinical Impression: Acute respiratory failure Altered mental status Qualifiers: Altered mental status type: unspecified Qualified Code(s): R41.82 - Altered mental status, unspecified Condition: Fair Disposition: ADMITTED OBSERVATION Admitting Provider: Amelia (Hospitalist) Unit Admitted: IMCU Referrals: CRISTIAN GROVES MD [Primary Care Provider] - Follow up as needed
[2020-01-09 17:07] LABS: ALBUMIN 2.9 g/dL (3.5-5.0); ALKALINE PHOSPHATASE 62 U/L (38-126); ANION GAP 8 (5-19); ASPARTATE AMINO TRANSFERASE 17 U/L (17-59); BILIRUBIN,DIRECT 0.3 mg/dL (0.0-0.4); BILIRUBIN,TOTAL 0.4 mg/dL (0.2-1.3); BLOOD UREA NITROGEN 34 mg/dL (7-20); CALCIUM 8.2 mg/dL (8.4-10.2); CARBON DIOXIDE 27 mmol/L (22-30); CHLORIDE 103 mmol/L (98-107); CREATINE KINASE 30 U/L (55-170); GLUCOSE 99 mg/dL (75-110); TOTAL PROTEIN 4.8 g/dL (6.3-8.2)
[2020-01-09 17:18] LABS: CREATINE KINASE MB 0.97 ng/mL (<4.55)
[2020-01-09 17:20] LABS: TROPONIN I < 0.012 ng/mL
[2020-01-09 18:48] LABS: APPEARANCE,URINE CLEAR; BILIRUBIN,URINE NEGATIVE (NEGATIVE); COLOR,URINE YELLOW; GLUCOSE, URINE NEGATIVE (NEGATIVE); KETONES,URINE NEGATIVE (NEGATIVE); PROTEIN,URINE NEGATIVE (NEGATIVE); URINE SPECIFIC GRAVITY 1.014; UROBILINOGEN,URINE NEGATIVE mg/dL (<2.0)
--- NOTE | 2020-01-09 19:48 | EKG REPORT ---
SEVERITY:- ABNORMAL ECG - ATRIAL-PACED RHYTHM ANTERIOR INFARCT, OLD : Confirmed by: Soco William 09-Jan-2020 19:48:17
[2020-01-09 20:46] LABS: ARTERIAL BLOOD BASE EXCESS 0.1 mmol/L; ARTERIAL BLOOD H2CO3 1.66 mmol/L (1.05-1.35); ARTERIAL BLOOD HCO3 26.9 mmol/L (20-24); ARTERIAL BLOOD O2 SATURATION 98.4 % (94-98); ARTERIAL BLOOD PCO2 55.1 mmHg (35-45); ARTERIAL BLOOD PH 7.31 (7.35-7.45); ARTERIAL BLOOD PO2 136.4 mmHg (80-100); ARTERIAL BLOOD TOTAL CO2 28.6 mmol/L (23-27)
[2020-01-09 20:47] LABS: ARTERIAL BLOOD FIO2 100%/2L
[2020-01-09] MEDS ORDERED: ACETAMINOPHEN 325 MG TABLET PO PRN (22:35)
[2020-01-09] MEDS ORDERED: DOCUSATE SODIUM 100 MG CAPSULE PO PRN (22:42)
[2020-01-09] MEDS ORDERED: ONDANSETRON HCL INJ/PF 4 MG/2 ML SDV IV PRN (22:42)
[2020-01-09] MEDS ORDERED: DEXTROSE 40% GEL 15 GM TUBE PO PRN ×2 (22:59)
[2020-01-09] MEDS ORDERED: GLUCAGON,HUMAN RECOMB 1 MG INJ IM PRN (22:59)
[2020-01-09] MEDS ORDERED: DEXTROSE 50%-WATER 25 GM/50 ML DISP.SYRIN IV PRN ×2 (22:59)
[2020-01-09] MEDS ORDERED: MAG HYDROX/AL HYDROX/SIMETH SUSP 30 ML UDCUP PO PRN (23:00)
[2020-01-09] MEDS ORDERED: RANOLAZINE 500 MG TAB.SR.12H PO ONE (23:00)
[2020-01-09] MEDS ORDERED: TRAMADOL HCL 50 MG TABLET PO PRN (23:00)
[2020-01-09] MEDS ORDERED: NITROGLYCERIN 0.4 MG/TAB 25 TAB/BOTTLE SL PRN (23:00)
[2020-01-09] MEDS ORDERED: SOTALOL HCL 80 MG TABLET PO ONE (23:30)
[2020-01-09] MEDS ORDERED: GABAPENTIN 300 MG CAPSULE PO ONE (23:30)
[2020-01-09] MEDS ORDERED: ATORVASTATIN CALCIUM 80 MG TABLET PO ONE (23:30)
[2020-01-09] MEDS ORDERED: FAMOTIDINE INJ/PF 20 MG/2 ML SDV IV ONE (23:30)
[2020-01-09] MEDS ORDERED: INSULIN GLARGINE,HUM.REC.ANLOG 1,000 UNIT/10 ML VIAL SUBCUT ONE (23:30)
[2020-01-09] MEDS ORDERED: APIXABAN 5 MG TABLET PO ONE (23:30)
--- NOTE | 2020-01-09 23:33 | PDOC H&P ---
History of Present Illness Admission Date/PCP: 01/09/20 22:11 CRISTIAN GROVES MD Patient complains of: Slurred speech, difficulty moving extremities History of Present Illness: RAMYA ADDISON JR is a 74 year old male with a history of CHF s/p ICD, CAD status post CABG and 21 stents [follows with Dr. Pa], Kassi olvera on [facility], who presents to the hospital for evaluation of acute change in mental status. Episode occurred around 1 PM today at which time, he experienced dysarthria and a sudden inability to move his extremities. This involved all his extremities and was only able to move fingers in his right hand and wiggle his toes. The episode lasted until patient was in the emergency department and subsequently resolved. He also noted numbness in his arms during the episode. He states he was having some diarrhea this morning and thinks he got dehydrated. He received fluids in the ambulance. He has never had similar episodes such as this before. No convulsions were noted at the time. Patient did not have any tongue biting and remembers the entire episode. Patient acknowledges that he has been told about a year ago that he had a cyst in his head and thinks it was in his brain. However he has not been able to have an MRI to follow this up because he had an ICD placed and has had difficulty getting an MRI machine that was compatible. Notes that he has a history of RINKU but was unable to tolerate CPAP. Past Medical History Cardiac Medical History: Reports: Atrial Fibrillation, Congestive Heart Failure, Coronary Artery Disease, Myocardial Infarction Denies: Hypertension - LOW PRESSURE Pulmonary Medical History: Denies: Asthma, Bronchitis, Chronic Obstructive Pulmonary Disease (COPD), Pneumonia Neurological Medical History: Denies: Seizures Endocrine Medical History: Reports: Diabetes Mellitus Type 2 Musculoskeltal Medical History: Denies: Arthritis Psychiatric Medical History: Denies: Depression Hematology: Reports: Anemia - HX Past Surgical History Past Surgical History: Reports: Cardiac Catheterization, Coronary Artery Bypass Graft, Coronary Stent, Other - Numerous coronary stents Social History Smoking Status: Smoker,Current Status Unk Electronic Cigarette use?: No Frequency of Alcohol Use: None Hx Recreational Drug Use: No Hx Prescription Drug Abuse: No - Advance Directive Resuscitation Status: Full Code Family History Family History: Hypertension Parental Family History Reviewed: Yes Children Family History Reviewed: NA Sibling(s) Family History Reviewed.: Yes Medication/Allergy Home Medications: Aspirin [Aspirin 325 mg Tablet] 325 mg PO DAILY 11/03/16 Atorvastatin Calcium 80 mg PO QHS 11/03/16 Clopidogrel Bisulfate [Clopidogrel] 75 mg PO DAILY 11/03/16 Diphenhydramine HCl [Benadryl 25 mg Capsule] 50 mg PO BID 11/03/16 Ferrous Sulfate [Iron] 325 mg PO DAILY 11/03/16 Furosemide [Lasix] 40 mg PO BID 11/03/16 Gabapentin 2 cap PO Q8 11/03/16 Insulin Glargine,Hum.rec.anlog [Lantus Solostar] 35 unit SQ QHS 11/03/16 Liraglutide [Victoza 2-Jay] 1.8 mg SQ DAILY 11/03/16 Losartan Potassium 25 mg PO DAILY 11/03/16 Metformin HCl 500 mg PO BID 11/03/16 Methocarbamol 2 tab PO Q8 11/03/16 Nitroglycerin 0.4 mg SL ASDIR PRN 11/03/16 Pantoprazole Sodium 40 mg PO DAILY 11/03/16 Potassium Chloride [Klor-Con 10] 20 meq PO Q12 11/03/16 Ranitidine HCl [Zantac] 150 mg PO DAILY 11/03/16 Ranolazine [Ranexa] 500 mg PO Q12 11/03/16 Tamsulosin HCl 0.4 mg PO QHS 11/03/16 Donepezil HCl [Aricept] 10 mg PO DAILY 06/29/17 Finasteride [Proscar 5 mg Tablet] 5 mg PO DAILY 06/29/17 Ipratropium [place] [Atrovent 0.06% Nasal [place]] 1 spray NASL DAILY 06/29/17 Sucralfate [Carafate 1 gm Tablet] 1 gm PO ACHS 06/29/17 Tramadol HCl [Ultram 50 mg Tablet] 50 mg PO Q4HP PRN 06/29/17 Allergies/Adverse Reactions: lisinopril Allergy (Verified 01/09/20 20:43) CURAD ADHESIVE Allergy (Mild, Uncoded 04/19/19 05:38) RASHES Review of Systems Constitutional: PRESENT: fatigue. ABSENT: fever(s) Eyes: ABSENT: visual disturbances Ears: ABSENT: hearing changes Nose, Mouth, and Throat: ABSENT: headache(s) Cardiovascular: ABSENT: chest pain Respiratory: ABSENT: cough, dyspnea Gastrointestinal: PRESENT: diarrhea. ABSENT: nausea, vomiting Genitourinary: ABSENT: dysuria Musculoskeletal: ABSENT: back pain Integumentary: ABSENT: diaphoresis Neurological: ABSENT: convulsions, dizziness, focal weakness, syncope Endocrine: ABSENT: polyuria Allergic/Immunologic: ABSENT: seasonal rhinorrhea Physical Exam Vital Signs: Temp Pulse Resp BP Pulse Ox 97.6 F 67 16 120/70 98 01/09/20 16:47 01/09/20 18:00 01/09/20 21:01 01/09/20 21:01 01/09/20 21:01 Intake & Output 01/08/20 01/09/20 01/10/20 06:59 06:59 06:59 Intake Total 1999 Balance 1999 Weight 111.584 kg General appearance: PRESENT: no acute distress, cooperative Eye exam: PRESENT: EOMI, PERRLA Mouth exam: PRESENT: neck supple Neck exam: ABSENT: JVD Respiratory exam: PRESENT: clear to auscultation ashwin, symmetrical, unlabored. ABSENT: tachypnea, wheezes Cardiovascular exam: PRESENT: +S1, +S2. ABSENT: tachycardia GI/Abdominal exam: PRESENT: soft. ABSENT: rebound, rigid, tenderness Extremities exam: PRESENT: pedal edema, +1 edema Neurological exam: PRESENT: alert, awake, oriented to person, oriented to place, oriented to time, oriented to situation, CN II-XII grossly intact. ABSENT: altered, ataxia - Normal [id number] and rapid alternating hand movement test, motor sensory deficit, aphasic Psychiatric exam: ABSENT: agitated, anxious Focused psych exam: ABSENT: pressured speech Results Laboratory Results: 01/09/20 16:23 01/09/20 16:23 01/09/20 01/09/20 01/09/20 16:23 16:23 18:05 WBC 7.6 RBC 3.01 L Hgb 9.9 L Hct 29.8 L MCV 99 H MCH 32.8 MCHC 33.1 RDW 14.4 H Plt Count 155 Seg Neutrophils % 80.0 H Carbonic Acid HCO3/H2CO3 Ratio ABG pH ABG pCO2 ABG pO2 ABG HCO3 ABG O2 Saturation ABG Base Excess FiO2 Sodium 138.3 Potassium 5.0 Chloride 103 Carbon Dioxide 27 Anion Gap 8 BUN 34 H Creatinine 1.21 Est GFR ( Amer) > 60 Glucose 99 Lactic Acid 1.4 Calcium 8.2 L Total Bilirubin 0.4 AST 17 Alkaline Phosphatase 62 Ammonia Total Protein 4.8 L Albumin 2.9 L Urine Color Urine Appearance Urine pH Ur Specific [place] Urine Protein Urine Glucose (UA) Urine Ketones Urine Blood Urine RBC (Auto) 01/09/20 01/09/20 01/09/20 18:28 20:00 20:12 WBC RBC Hgb Hct MCV MCH MCHC RDW Plt Count Seg Neutrophils % Carbonic Acid 1.66 H HCO3/H2CO3 Ratio 16:1 ABG pH 7.31 L ABG pCO2 55.1 H ABG pO2 136.4 H ABG HCO3 26.9 H ABG O2 Saturation 98.4 H ABG Base Excess 0.1 FiO2 100%/2L Sodium Potassium Chloride Carbon Dioxide Anion Gap BUN Creatinine Est GFR ( Amer) Glucose Lactic Acid Calcium Total Bilirubin AST Alkaline Phosphatase Ammonia < 8.7 L Total Protein Albumin Urine Color YELLOW Urine Appearance CLEAR Urine pH 5.0 Ur Specific [place] 1.014 Urine Protein NEGATIVE Urine Glucose (UA) NEGATIVE Urine Ketones NEGATIVE Urine Blood NEGATIVE Urine RBC (Auto) 0 01/09/20 01/09/20 16:23 16:23 Creatine Kinase 30 L CK-MB (CK-2) 0.97 Troponin I < 0.012 Impressions: Chest X-Ray 01/09/20 16:08 IMPRESSION: Negative chest allowing for low lung volumes. Head CT 01/09/20 16:08 IMPRESSION: MILD CHRONIC CHANGES OF ATROPHY AND MICROVASCULAR ISCHEMIA. NO ACUTE PROCESS. EVIDENCE OF ACUTE STROKE: NO. Assessment and Plan - Diagnosis (1) Transient neurologic deficit Is this a current diagnosis for this admission?: Yes Plan: Very odd presentation involving bilateral extremities and dysarthria Possible etiology include TIA or possible nonconvulsive seizure We will admit for observation in [facility] Head CT unremarkable for acute event Check CTA neck Telemetry Given bilateral involvement of arms and legs, will also check CT cervical spine Check EEG Continue aspirin and atorvastatin (2) Brain cyst Is this a current diagnosis for this admission?: Yes Plan: Patient reports history of brain cyst but has not been able to get an MRI due to difficulty finding a compatible machine giving ICD. I will check CTA of the brain to make sure this is not an aneurysm that he is referring to. I have explained to patient and his daughter that we do not have neurology at this facility and that there is no way to know if this is playing a role in his presentation. He is okay with being admitted here for observation. I have explained to them that he absolutely needs to follow-up with a neurologist soon as possible which they said they will do outpatient. (3) Acute respiratory acidosis Is this a current diagnosis for this admission?: Yes Plan: Mild CO2 retention. Likely secondary to today's episode. Currently mentating very well without any difficulty breathing whatsoever. No need to repeat blood gas at this time unless change in mental status. (4) RINKU (obstructive sleep apnea) Is this a current diagnosis for this admission?: Yes Plan: Nocturnal CPAP (5) Saravia's esophagus with dysplasia, unspecified Is this a current diagnosis for this admission?: Yes Plan: Continue Protonix and Carafate. Outpatient follow-up with Dr. Brown for surveillance endoscopy. (6) CAD (coronary artery disease) Qualifiers: Coronary Disease-Associated Artery/Lesion type: unspecified vessel or lesion type [place] vs. transplanted heart: [place] heart Associated angina: with unstable angina Qualified Code(s): I25.110 - Atherosclerotic heart disease of [place] coronary artery with unstable angina pectoris Is this a current diagnosis for this admission?: Yes Plan: Continue cardiac meds (7) Paroxysmal atrial fibrillation Is this a current diagnosis for this admission?: Yes Plan: Continue sotalol and Eliquis - Time Time Spent with patient: 35 or more minutes Anticipated Discharge Disposition: Home, Self Care Anticipated Discharge Timeframe: within 24 hours
[2020-01-10] MEDS: SUCRALFATE 1 GM TABLET PO SCH ×4 (00:57→18:19)
[2020-01-10] MEDS ORDERED: ATORVASTATIN CALCIUM 80 MG TABLET ONE (02:31)
--- NOTE | 2020-01-10 03:52 | RADIOLOGY REPORT (SQ) ---
CLINICAL HISTORY: transient inability to move legs arms COMPARISON: None. TECHNIQUE: CT CERVICAL SPINE WITHOUT IV CONTRAST on 01/10/2020 12:00 AM CDT This exam was performed according to our departmental dose-optimization program, which includes automated exposure control, adjustment of the mA and/or kV according to patient size and/or use of iterative reconstruction technique. FINDINGS: There is no acute fracture. Vertebral body heights are preserved. Alignment is anatomic. There is mild narrowing of the C5-6 and C6-7 discs. Soft tissues are unremarkable. IMPRESSION: No acute fracture or subluxation.
--- NOTE | 2020-01-10 03:53 | RADIOLOGY REPORT (SQ) ---
CLINICAL HISTORY: tia, brain cyst. CREAT 1.21 COMPARISON: None. TECHNIQUE: CT HEAD ANGIOGRAPHY WITHOUT THEN WITH IV CONTRAST, CT NECK ANGIOGRAPHY WITHOUT THEN WITH IV CONTRAST on 01/10/2020 12:00 AM CDT This exam was performed according to our departmental dose-optimization program, which includes automated exposure control, adjustment of the mA and/or kV according to patient size and/or use of iterative reconstruction technique. MIP reconstructions were generated. Stenoses are calculated by NASCET criteria. FINDINGS: The visualized aortic arch and origins of the great vessels unremarkable. The common carotid arteries are patent and symmetric bilaterally. No hemodynamically significant stenosis is observed at the common carotid bifurcations or origins of the internal carotid arteries bilaterally. There are moderate calcifications at the origins of both internal carotid arteries. Vertebral arteries are unremarkable without evidence of pseudoaneurysm, hemodynamically significant stenosis, or dissection. Intracranially the cavernous segments of the internal carotid arteries are patent and symmetric bilaterally. Vertebral basilar system within normal limits for age. No aneurysm identified within the [place] of [place]. Anterior, middle, and posterior cerebral circulations patent and symmetric bilaterally. Dural sinuses are well opacified and without filling defect. IMPRESSION: Unremarkable CT angiogram of the neck for age without dissection or hemodynamically significant stenosis. Unremarkable CTA of the brain without evidence of hemodynamically significant stenosis, aneurysm or AVM. CAROTID STENOSIS REFERENCE USING NASCET CRITERIA: % ICA stenosis = (1 - narrowest ICA diameter/diameter of distal cervical ICA) x 100. Mild - <50% stenosis. Moderate - 50-69% stenosis. Severe - 70-94% stenosis. Near occlusion - 95-99% stenosis. Occluded - 100% stenosis.
[2020-01-10] MEDS: PANTOPRAZOLE SODIUM 40 MG TABLET.DR PO SCH (05:31)
[2020-01-10 06:16] LABS: ABSOLUTE RETICS # 0.066 10^6/uL (0.028-0.122); HEMATOCRIT 30.9 % (37.9-51.0); HEMOGLOBIN 10.5 g/dL (13.5-17.0); MEAN CORPUSCULAR HEMOGLOBIN 33.1 pg (27.0-33.4); MEAN CORPUSCULAR HGB CONC 33.8 g/dL (32.0-36.0); MEAN CORPUSCULAR VOLUME 98 fl (80-97); PLATELET COUNT 137 10^3/uL (150-450); RED BLOOD COUNT 3.16 10^6/uL (4.35-5.55); RED CELL DISTRIBUTION WIDTH 14.3 % (11.5-14.0); RETICULOCYTE COUNT (AUTO) 2.09 % (0.66-2.85); WHITE BLOOD COUNT 8.1 10^3/uL (4.0-10.5)
[2020-01-10 06:36] LABS: ANION GAP 11 (5-19); BLOOD UREA NITROGEN 31 mg/dL (7-20); CALCIUM 8.6 mg/dL (8.4-10.2); CARBON DIOXIDE 22 mmol/L (22-30); CHLORIDE 106 mmol/L (98-107); CHOLESTEROL 107.37 mg/dL (0-200); GLUCOSE 87 mg/dL (75-110); IRON(TIBC) 62.6 ug/dL (49-181); POTASSIUM 4.6 mmol/L (3.6-5.0); TRIGLYCERIDES 96 mg/dL (<150)
[2020-01-10 06:47] LABS: DIRECT LDL 52 mg/dL (<100)
[2020-01-10] MEDS: INSULIN LISPRO 100 UNIT/ML 3 ML VIAL SUBCUT SCH ×4 (08:41→21:33)
[2020-01-10] MEDS: FINASTERIDE 5 MG TABLET PO SCH (09:55)
[2020-01-10] MEDS: APIXABAN 5 MG TABLET PO SCH ×2 (09:55→21:49)
[2020-01-10] MEDS: ASPIRIN 81 MG TABLET, ENT COATED PO SCH (09:55)
[2020-01-10] MEDS: RANOLAZINE 500 MG TAB.SR.12H PO SCH ×2 (09:55→21:48)
[2020-01-10] MEDS: METHOCARBAMOL 750 MG TABLET PO SCH ×3 (09:56→18:19)
[2020-01-10] MEDS: POTASSIUM CHLORIDE 10 MEQ TABLET.ER PO SCH (09:56)
[2020-01-10] MEDS: METOPROLOL SUCCINATE 50 MG TAB.SR.24H PO SCH (09:56)
[2020-01-10] MEDS: FERROUS SULFATE 325 MG TABLET PO SCH (09:57)
[2020-01-10] MEDS: CHOLECALCIFEROL (D3) 1,000 UNIT (25 MCG) TABLET PO SCH (09:57)
[2020-01-10] MEDS: SOTALOL HCL 80 MG TABLET PO SCH ×2 (09:58→21:47)
[2020-01-10] MEDS: FAMOTIDINE INJ/PF 20 MG/2 ML SDV IV SCH ×2 (09:59→21:47)
[2020-01-10] MEDS ORDERED: GABAPENTIN 300 MG CAPSULE PO SCH (10:00)
[2020-01-10] MEDS ORDERED: FUROSEMIDE 20 MG TABLET PO SCH (10:00)
[2020-01-10] MEDS ORDERED: GABAPENTIN 300 MG CAPSULE PO ONE ×2 (10:30→12:30)
--- NOTE | 2020-01-10 14:52 | NEURO WORKBENCH EEG REPORT ---
EEG Report Patient: Alan Bundy Jr ID: [id number] Referring Doctor: Yesenia Onchristi Date: 01/10/2020 Reason for study: Evaluate Epileptiform activity Medications: Eliquis, Aspirin, Famotidine, Proscar, Lipitor, Feosol, Gabapentin, Insulin, Robaxin, Toprol, Protonix, Ranexa, Betapace, Flomax, Carafate History: This is a 74 year old male with a history of A-Fib, CHF, DMII, CABG, Coronary stenting, GERD, hypotension, and GERD. He was admitted with transient neurological deficit. This EEG was requested for evaluation of epileptiform activity. EEG Interpretation: This EEG was recorded during wakefulness and drowsiness and overall low amplitude. The awake EEG is characterized by a a poorly sustained but reactive posterior dominant rhythm (PDR) of approximately 9 Hz. The remainder of the background consisted of low amplitude predominant beta activity with intermixed low amplitude alpha activity. The EEG is symmetric in amplitudes and frequencies. Photic stimulation resulted in minimal photic driving, and there was no epileptiform activity elicited with photic stimulation. Drowsiness was characterized by slow rolling eye movements, slowing of the background rhythm with some theta activity. Vertex waves, POSTs, K-complexes, and sleep spindles were not noted. During drowsiness there was transient bi-temporal sharply contoured waveforms which are most consistent with wickets (benign finding). There were no epileptiform abnormalities (no sharp waves and no spikes). There were no seizures. The EKG showed a regular rhythm with typically 60 beats per minute. EEG Impression: This EEG shows low amplitude activity globally with frequent beta activity globally which are non-specific findings. Prominent beta activity may be seen with medications such as benzodiazepines and barbiturates. There was no epileptiform activity or seizures. A single normal routine EEG does not rule out the possibility of epilepsy. If there is high clinical suspicion for epilepsy, then additional EEG evaluation should be considered with a sleep-deprived EEG or more prolonged EEG monitoring. INTERPRETING NEUROLOGIST: Kaleb Valentino MD Board certified by the [place] [employer] in Neurology, Clinical Neurophysiology, and Sleep Medicine [facility]
[2020-01-10] MEDS ORDERED: INFLUENZA QUAD (6MOS+) 2020-21 VAC 0.5 ML SYR IM ONE (16:00)
[2020-01-10] MEDS ORDERED: TAMSULOSIN HCL 0.4 MG CAP.SR.24H PO SCH (18:00)
[2020-01-10] MEDS: GABAPENTIN 300 MG CAPSULE PO SCH ×2 (18:18→21:49)
--- NOTE | 2020-01-10 21:21 | PDOC PROGRESS REPORT ---
Subjective Progress Note for:: 01/10/20 Subjective:: RAMYA ADDISON JR is a 74 year old male with a history of CHF s/p ICD, CAD status post CABG and 21 stents [follows with Dr. Pa][facility]assi [facility], who presents to the hospital for evaluation of acute change in mental status. Episode occurred around 1 PM today at which time, he experienced dysarthria and a sudden inability to move his extremities. This involved all his extremities and was only able to move fingers in his right hand and wiggle his toes. The episode lasted until patient was in the emergency department and subsequently resolved. He also noted numbness in his arms during the episode. He states he was having some diarrhea this morning and thinks he got dehydrated. He received fluids in the ambulance. He has never had similar episodes such as this before. No convulsions were noted at the time. Patient did not have any tongue biting and remembers the entire episode. Patient acknowledges that he has been told about a year ago that he had a cyst in his head and thinks it was in his brain. However he has not been able to have an MRI to follow this up because he had an ICD placed and has had difficulty getting an MRI machine that was compatible. Notes that he has a history of RINKU but was unable to tolerate CPAP. 01/10/20 D2 Hospital stay. he was seen and examined at bedside. He denies any recurrence of previously noted symptoms. Head and neck CTA, cervical spine CT has been normal. Lab exam stable. Upon further history patient stated that he was using a breathing machine during sleep a few years ago but because of an ill fitting mask he stopped using it. He also reports excessive daytime fatigue and sleepiness, and nonrestful sleep. He did have an mildly elevated PCO2 when he came in. Reason For Visit: TRANSIENT NEUROLOGICAL DEFICIT Physical Exam Vital Signs: Temp Pulse Resp BP Pulse Ox 97.9 F 60 17 94/77 L 96 01/10/20 16:00 01/10/20 19:00 01/10/20 16:00 01/10/20 16:00 01/10/20 16:00 Intake & Output 01/09/20 01/10/20 01/11/20 06:59 06:59 06:59 Intake Total 2000 300 Output Total 200 Balance 1800 300 Weight 111.584 kg General appearance: PRESENT: no acute distress, cooperative, obese Head exam: PRESENT: atraumatic, normocephalic Eye exam: PRESENT: EOMI, PERRLA Mouth exam: PRESENT: moist Neck exam: PRESENT: full ROM Respiratory exam: PRESENT: clear to auscultation ashwin, symmetrical, unlabored. ABSENT: rales Cardiovascular exam: PRESENT: RRR, +S1, +S2 Pulses: PRESENT: +2 pedal pulses bilateral GI/Abdominal exam: PRESENT: normal bowel sounds, soft. ABSENT: rebound, tenderness Extremities exam: PRESENT: full ROM Musculoskeletal exam: PRESENT: ambulatory, full ROM Neurological exam: PRESENT: alert, awake, oriented to person, oriented to place, oriented to time, oriented to situation Psychiatric exam: PRESENT: normal mood Skin exam: PRESENT: normal color Results Laboratory Results: 01/10/20 06:00 01/10/20 06:00 01/09/20 01/10/20 01/10/20 16:23 06:00 06:00 WBC 8.1 RBC 3.16 L Hgb 10.5 L Hct 30.9 L MCV 98 H MCH 33.1 MCHC 33.8 RDW 14.3 H Plt Count 137 L Retic Count (auto) 2.09 Sodium 138.7 Potassium 4.6 Chloride 106 Carbon Dioxide 22 Anion Gap 11 BUN 31 H Creatinine 1.08 Est GFR ( Amer) > 60 Glucose 87 Calcium 8.6 Iron 62.6 TIBC 401 % Saturation 16 Ferritin 15.70 L Triglycerides 96 Cholesterol 107.37 LDL Cholesterol Direct 52 VLDL Cholesterol 19.0 HDL Cholesterol 39 L Vitamin B12 331.0 Folate 7.00 TSH 1.61 01/09/20 01/09/20 16:23 16:23 Creatine Kinase 30 L CK-MB (CK-2) 0.97 Troponin I < 0.012 Impressions: Chest X-Ray 01/09/20 16:08 IMPRESSION: Negative chest allowing for low lung volumes. Head CT 01/09/20 16:08 IMPRESSION: MILD CHRONIC CHANGES OF ATROPHY AND MICROVASCULAR ISCHEMIA. NO ACUTE PROCESS. EVIDENCE OF ACUTE STROKE: NO. Cervical Spine CT 01/10/20 00:00 IMPRESSION: No acute fracture or subluxation. Head CTA 01/10/20 00:00 IMPRESSION: Unremarkable CT angiogram of the neck for age without dissection or hemodynamically significant stenosis. Unremarkable CTA of the brain without evidence of hemodynamically significant stenosis, aneurysm or AVM. CAROTID STENOSIS REFERENCE USING NASCET CRITERIA: % ICA stenosis = (1 - narrowest ICA diameter/diameter of distal cervical ICA) x 100. Mild - <50% stenosis. Moderate - 50-69% stenosis. Severe - 70-94% stenosis. Near occlusion - 95-99% stenosis. Occluded - 100% stenosis. Neck CTA 01/10/20 00:00 IMPRESSION: Unremarkable CT angiogram of the neck for age without dissection or hemodynamically significant stenosis. Unremarkable CTA of the brain without evidence of hemodynamically significant stenosis, aneurysm or AVM. CAROTID STENOSIS REFERENCE USING NASCET CRITERIA: % ICA stenosis = (1 - narrowest ICA diameter/diameter of distal cervical ICA) x 100. Mild - <50% stenosis. Moderate - 50-69% stenosis. Severe - 70-94% stenosis. Near occlusion - 95-99% stenosis. Occluded - 100% stenosis. Assessment and Plan - Diagnosis (1) Transient neurologic deficit Is this a current diagnosis for this admission?: Yes Plan: - resolved CTA head and neck normal, CT cervical spine normal has mild hypercapnia prhaps transient neurologic deficit from hypoxemia with hypercapnia from RINKU or obesity hypoventilation CPAP trial tonight Neurochecks Telemetry Check EEG Continue aspirin and atorvastatin (2) Brain cyst Is this a current diagnosis for this admission?: Yes Plan: Patient reports history of brain cyst but has not been able to get an MRI due to difficulty finding a compatible machine giving ICD. CTA negative Would still need neurology consult and MRI (3) Acute respiratory acidosis Is this a current diagnosis for this admission?: Yes Plan: Mild CO2 retention. Likely secondary to today's episode. CPAP trial (4) RINKU (obstructive sleep apnea) Is this a current diagnosis for this admission?: Yes Plan: Nocturnal CPAP (5) Saravia's esophagus with dysplasia, unspecified Is this a current diagnosis for this admission?: Yes Plan: Continue Protonix and Carafate. Outpatient follow-up with Dr. Brown for surveillance endoscopy. (6) CAD (coronary artery disease) Qualifiers: Coronary Disease-Associated Artery/Lesion type: unspecified vessel or lesion type [place] vs. transplanted heart: [place] heart Associated angina: with unstable angina Qualified Code(s): I25.110 - Atherosclerotic heart disease of [place] coronary artery with unstable angina pectoris Is this a current diagnosis for this admission?: Yes Plan: Continue cardiac meds (7) Paroxysmal atrial fibrillation Is this a current diagnosis for this admission?: Yes Plan: Continue sotalol and Eliquis - Time Time Spent with patient: 25-34 minutes Anticipated Discharge Disposition: Home, Self Care Anticipated Discharge Timeframe: within 24 hours
[2020-01-10] MEDS ORDERED: INSULIN GLARGINE,HUM.REC.ANLOG 1,000 UNIT/10 ML VIAL (PYX) SUBCUT ONE (21:38)
[2020-01-10] MEDS ORDERED: INSULIN GLARGINE,HUM.REC.ANLOG 1,000 UNIT/10 ML VIAL SUBCUT SCH (22:00)
[2020-01-10] MEDS ORDERED: ATORVASTATIN CALCIUM 80 MG TABLET PO SCH (22:00)
[2020-01-11] MEDS: SUCRALFATE 1 GM TABLET PO SCH ×2 (00:13→05:49)
[2020-01-11] MEDS: PANTOPRAZOLE SODIUM 40 MG TABLET.DR PO SCH (05:49)
[2020-01-11] MEDS: GABAPENTIN 300 MG CAPSULE PO SCH (05:49)
[2020-01-11] MEDS: INSULIN LISPRO 100 UNIT/ML 3 ML VIAL SUBCUT SCH (08:28)
[2020-01-11] MEDS: METHOCARBAMOL 750 MG TABLET PO SCH (10:02)
[2020-01-11] MEDS: METOPROLOL SUCCINATE 50 MG TAB.SR.24H PO SCH (10:02)
[2020-01-11] MEDS: ASPIRIN 81 MG TABLET, ENT COATED PO SCH (10:03)
[2020-01-11] MEDS: FERROUS SULFATE 325 MG TABLET PO SCH (10:03)
[2020-01-11] MEDS: APIXABAN 5 MG TABLET PO SCH (10:03)
[2020-01-11] MEDS: FINASTERIDE 5 MG TABLET PO SCH (10:04)
[2020-01-11] MEDS: POTASSIUM CHLORIDE 10 MEQ TABLET.ER PO SCH (10:05)
[2020-01-11] MEDS: RANOLAZINE 500 MG TAB.SR.12H PO SCH (10:05)
[2020-01-11] MEDS: CHOLECALCIFEROL (D3) 1,000 UNIT (25 MCG) TABLET PO SCH (10:05)
[2020-01-11] MEDS: FAMOTIDINE INJ/PF 20 MG/2 ML SDV IV SCH (10:08)
[2020-01-11 10:38] VITALS: BP 94/77
--- NOTE | 2020-01-11 21:05 | PDOC DISCHARGE SUMMARY ---
Impression - Admit/DC Date/PCP Admission Date/Primary Care Provider: 01/09/20 22:11 CRISTIAN GROVES MD Discharge Date: 01/11/20 - Discharge Diagnosis (1) Transient neurologic deficit Is this a current diagnosis for this admission?: Yes (2) Brain cyst Is this a current diagnosis for this admission?: Yes (3) Acute respiratory acidosis Is this a current diagnosis for this admission?: Yes (4) RINKU (obstructive sleep apnea) Is this a current diagnosis for this admission?: Yes (5) Saravia's esophagus with dysplasia, unspecified Is this a current diagnosis for this admission?: Yes (6) CAD (coronary artery disease) Is this a current diagnosis for this admission?: Yes (7) Paroxysmal atrial fibrillation Is this a current diagnosis for this admission?: Yes - Additional Information Resuscitation Status: Full Code Discharge Diet: As Tolerated Discharge Activity: Activity As Tolerated Referrals: CRISTIAN GROVES MD [Primary Care Provider] - 01/13/20 12:15 pm (This is a Telemed appointment...) Prescriptions: Tamsulosin HCl [Flomax 0.4 mg Cap.sr] 0.4 mg PO PCSUPPER 30 Days #30 cap.sr.24h Home Medications: Atorvastatin Calcium 80 mg PO QHS 11/03/16 Diphenhydramine HCl [Benadryl 25 mg Capsule] 50 mg PO BID 11/03/16 Ferrous Sulfate [Iron] 325 mg PO DAILY 11/03/16 Furosemide [Lasix] 20 mg PO QAM 11/03/16 Gabapentin 600 mg PO Q8 11/03/16 Insulin Glargine,Hum.rec.anlog [Lantus Solostar] 35 unit SQ QPM 11/03/16 Liraglutide [Victoza 2-Jay] 1.8 mg SQ QAM 11/03/16 Metformin HCl 500 mg PO BID 11/03/16 Pantoprazole Sodium 40 mg PO BID 11/03/16 Potassium Chloride [Klor-Con 10] 10 meq PO DAILY 11/03/16 Ranolazine [Ranexa] 1,000 mg PO Q12 11/03/16 Tamsulosin HCl 0.4 mg PO QHS 11/03/16 Donepezil HCl [Aricept] 10 mg PO DAILY 06/29/17 Finasteride [Proscar 5 mg Tablet] 5 mg PO DAILY 06/29/17 Sucralfate [Carafate 1 gm Tablet] 1 gm PO ACHS 06/29/17 Apixaban [Eliquis 5 mg Tablet] 5 mg PO BID 01/10/20 Aspirin [Adult Low Dose Aspirin EC] 81 mg PO DAILY 01/10/20 Cholecalciferol (Vitamin D3) [Vitamin D3 1000 Unit Tablet] 1,000 unit PO DAILY 01/10/20 Famotidine [Pepcid 20 mg Tablet] 20 mg PO DAILY 01/10/20 Ipratropium [place] 2 spray NASL BID 01/10/20 Loperamide HCl [Imodium A-D] 4 mg PO .ASDIR PRN 01/10/20 Mag Hydrox/Al Hydrox/Simeth [Maalox Plus Susp 30 Udcup] 30 ml PO DAILYP PRN 01/10/20 Methocarbamol [Robaxin 750 mg Tablet] 750 mg PO Q8 01/10/20 Metoprolol Succinate [Toprol Xl 50 mg Tab.sr] 50 mg PO DAILY 01/10/20 Nitroglycerin [Nitrostat] 0.3 mg SL Q5MP PRN 01/10/20 Polyethylene Glycol 3350 [Miralax Powder 17 gm/Packet] 17 gm PO DAILY 01/10/20 Psyllium Husk (with Sugar) [Metamucil Packet] 3.4 gm PO BID 01/10/20 Sotalol HCl [Betapace 80 mg Tablet] 40 mg PO BID 01/10/20 Tamsulosin HCl [Flomax 0.4 mg Cap.sr] 0.4 mg PO PCSUPPER 30 Days #30 cap.sr.24h 01/11/20 History of Present Illiness History of Present Illness: RAMYA ADDISON JR is a 74 year old male with a history of CHF s/p ICD, CAD status post CABG and 21 stents [follows with Dr. Pa], Kassi olvera on Eliquis, who presents to the hospital for evaluation of acute change in mental status. Episode occurred around 1 PM today at which time, he experienced dysarthria and a sudden inability to move his extremities. This involved all his extremities and was only able to move fingers in his right hand and wiggle his toes. The episode lasted until patient was in the emergency department and subsequently resolved. He also noted numbness in his arms during the episode. He states he was having some diarrhea this morning and thinks he got dehydrated. He received fluids in the ambulance. He has never had similar episodes such as this before. No convulsions were noted at the time. Patient did not have any tongue biting and remembers the entire episode. Patient acknowledges that he has been told about a year ago that he had a cyst in his head and thinks it was in his brain. However he has not been able to have an MRI to follow this up because he had an ICD placed and has had difficulty getting an MRI machine that was compatible. Notes that he has a history of RINKU but was unable to tolerate CPAP. Hospital Course Hospital Course: 01/10/20 D2 Hospital stay. he was seen and examined at bedside. He denies any recurrence of previously noted symptoms. Head and neck CTA, cervical spine CT albarado s been normal. Lab exam stable. Upon further history patient stated that he was using a breathing machine during sleep a few years ago but because of an ill fitting mask he stopped using it. He also reports excessive daytime fatigue and sleepiness, and nonrestful sleep. He did have an mildly elevated PCO2 when he came in. 01/11/20 Patient remained stable with no recurrence of symptoms. He was able to sleep well on the Bipap. He was discharged with advice to follow up with PCP for sleep study and MRI outpatient. Physical Exam Vital Signs: Temp Pulse Resp BP Pulse Ox 97.4 F 60 18 94/77 L 96 01/11/20 10:35 01/11/20 10:35 01/11/20 10:35 01/11/20 10:35 01/11/20 10:35 Intake & Output 01/10/20 01/11/20 01/12/20 06:59 06:59 06:59 Intake Total 2000 871 Output Total 200 Balance 1800 871 Weight 111.584 kg 117.7 kg General appearance: PRESENT: no acute distress, cooperative, obese Head exam: PRESENT: normocephalic Eye exam: PRESENT: EOMI, PERRLA Mouth exam: PRESENT: moist Neck exam: PRESENT: full ROM. ABSENT: JVD Respiratory exam: PRESENT: clear to auscultation ashwin, symmetrical, unlabored Cardiovascular exam: PRESENT: RRR, +S1, +S2 Pulses: PRESENT: +2 pedal pulses bilateral GI/Abdominal exam: PRESENT: normal bowel sounds, soft. ABSENT: rebound, tenderness Extremities exam: ABSENT: +2 edema Musculoskeletal exam: PRESENT: full ROM Neurological exam: PRESENT: alert, awake, oriented to person, oriented to place, oriented to time, oriented to situation Psychiatric exam: PRESENT: normal mood Skin exam: PRESENT: normal color Results Laboratory Results: WBC 8.1 10^3/uL (4.0-10.5) 01/10/20 06:00 RBC 3.16 10^6/uL (4.35-5.55) L 01/10/20 06:00 Hgb 10.5 g/dL (13.5-17.0) L 01/10/20 06:00 Hct 30.9 % (37.9-51.0) L 01/10/20 06:00 MCV 98 fl (80-97) H 01/10/20 06:00 MCH 33.1 pg (27.0-33.4) 01/10/20 06:00 MCHC 33.8 g/dL (32.0-36.0) 01/10/20 06:00 RDW 14.3 % (11.5-14.0) H 01/10/20 06:00 Plt Count 137 10^3/uL (150-450) L 01/10/20 06:00 Lymph % (Auto) 13.0 % (13-45) 01/09/20 16:23 [place] % (Auto) 4.6 % (3-13) 01/09/20 16:23 Eos % (Auto) 2.1 % (0-6) 01/09/20 16:23 Baso % (Auto) 0.3 % (0-2) 01/09/20 16:23 Reticulocyte # 0.066 10^6/uL (0.028-0.122) 01/10/20 06:00 Absolute Neuts (auto) 6.1 10^3/uL (1.7-8.2) 01/09/20 16:23 Absolute Lymphs (auto) 1.0 10^3/uL (0.5-4.7) 01/09/20 16:23 Absolute Monos (auto) 0.4 10^3/uL (0.1-1.4) 01/09/20 16:23 Absolute Eos (auto) 0.2 10^3/uL (0.0-0.6) 01/09/20 16:23 Absolute Basos (auto) 0.0 10^3/uL (0.0-0.2) 01/09/20 16:23 Seg Neutrophils % 80.0 % (42-78) H 01/09/20 16:23 Retic Count (auto) 2.09 % (0.66-2.85) 01/10/20 06:00 PT 16.9 SEC (11.4-15.4) H 01/09/20 16:23 INR 1.36 01/09/20 16:23 APTT 35.6 SEC (23.5-35.8) 01/09/20 16:23 Carbonic Acid 1.66 mmol/L (1.05-1.35) H 01/09/20 20:12 HCO3/H2CO3 Ratio 16:1 01/09/20 20:12 ABG pH 7.31 (7.35-7.45) L 01/09/20 20:12 ABG pCO2 55.1 mmHg (35-45) H 01/09/20 20:12 ABG pO2 136.4 mmHg (80-100) H 01/09/20 20:12 ABG HCO3 26.9 mmol/L (20-24) H 01/09/20 20:12 ABG Total CO2 28.6 mmol/L (23-27) H 01/09/20 20:12 ABG O2 Saturation 98.4 % (94-98) H 01/09/20 20:12 ABG Base Excess 0.1 mmol/L 01/09/20 20:12 FiO2 100%/2L 01/09/20 20:12 Sodium 138.7 mmol/L (137-145) 01/10/20 06:00 Potassium 4.6 mmol/L (3.6-5.0) 01/10/20 06:00 Chloride 106 mmol/L (98-107) 01/10/20 06:00 Carbon Dioxide 22 mmol/L (22-30) 01/10/20 06:00 Anion Gap 11 (5-19) 01/10/20 06:00 BUN 31 mg/dL (7-20) H 01/10/20 06:00 Creatinine 1.08 mg/dL (0.52-1.25) 01/10/20 06:00 Est GFR ( Amer) > 60 (>60) 01/10/20 06:00 Est GFR (MDRD) Non-Af > 60 (>60) 01/10/20 06:00 Glucose 87 mg/dL (75-110) 01/10/20 06:00 POC Glucose 107 mg/dL (70-110) 01/11/20 08:08 Lactic Acid 1.4 mmol/L (0.7-2.1) 01/09/20 18:05 Calcium 8.6 mg/dL (8.4-10.2) 01/10/20 06:00 Iron 62.6 ug/dL (49-181) 01/10/20 06:00 TIBC 401 ug/dL (250-450) 01/10/20 06:00 % Saturation 16 % 01/10/20 06:00 Ferritin 15.70 ng/mL (17.9-464.0) L 01/10/20 06:00 Total Bilirubin 0.4 mg/dL (0.2-1.3) 01/09/20 16:23 Direct Bilirubin 0.3 mg/dL (0.0-0.4) 01/09/20 16:23 Neonat Total Bilirubin Not Reportable 01/09/20 16:23 Neonat Direct Bilirubin Not Reportable 01/09/20 16:23 Neonat Indirect Bili Not Reportable 01/09/20 16:23 AST 17 U/L (17-59) 01/09/20 16:23 ALT 18 U/L (<50) 01/09/20 16:23 Alkaline Phosphatase 62 U/L (38-126) 01/09/20 16:23 Ammonia < 8.7 umol/L (9-33) L 01/09/20 20:00 Creatine Kinase 30 U/L (55-170) L 01/09/20 16:23 CK-MB (CK-2) 0.97 ng/mL (<4.55) 01/09/20 16:23 Troponin I < 0.012 ng/mL 01/09/20 16:23 Total Protein 4.8 g/dL (6.3-8.2) L 01/09/20 16:23 Albumin 2.9 g/dL (3.5-5.0) L 01/09/20 16:23 Triglycerides 96 mg/dL (<150) 01/10/20 06:00 Cholesterol 107.37 mg/dL (0-200) 01/10/20 06:00 LDL Cholesterol Direct 52 mg/dL (<100) 01/10/20 06:00 VLDL Cholesterol 19.0 mg/dL (10-31) 01/10/20 06:00 HDL Cholesterol 39 mg/dL (>40) L 01/10/20 06:00 Vitamin B12 331.0 pg/mL (239-931) 01/10/20 06:00 Folate 7.00 ng/mL (>2.76) 01/10/20 06:00 TSH 1.61 uIU/mL (0.47-4.68) 01/09/20 16:23 Urine Color YELLOW 01/09/20 18:28 Urine Appearance CLEAR 01/09/20 18:28 Urine pH 5.0 (5.0-9.0) 01/09/20 18:28 Ur Specific [place] 1.014 01/09/20 18:28 Urine Protein NEGATIVE mg/dL (NEGATIVE) 01/09/20 18:28 Urine Glucose (UA) NEGATIVE mg/dL (NEGATIVE) 01/09/20 18:28 Urine Ketones NEGATIVE mg/dL (NEGATIVE) 01/09/20 18:28 Urine Blood NEGATIVE (NEGATIVE) 01/09/20 18:28 Urine Nitrite (Reflex) NEGATIVE (NEGATIVE) 01/09/20 18:28 Urine Bilirubin NEGATIVE (NEGATIVE) 01/09/20 18:28 Urine Urobilinogen NEGATIVE mg/dL (<2.0) 01/09/20 18:28 Leukocyte Esterase Rfl NEGATIVE (NEGATIVE) 01/09/20 18:28 Urine RBC (Auto) 0 /HPF 01/09/20 18:28 U Hyaline Cast (Auto) 7 /LPF 01/09/20 18:28 Urine WBC (Reflex) 1 /HPF 01/09/20 18:28 Urine Mucus (Auto) RARE /LPF 01/09/20 18:28 Urine Ascorbic Acid NEGATIVE (NEGATIVE) 01/09/20 18:28 POC Stool Occult Blood POSITIVE (NEGATIVE) 01/09/20 20:42 01/09/20 16:23 CK-MB (CK-2) 0.97 Troponin I < 0.012 Impressions: Chest X-Ray 01/09/20 16:08 IMPRESSION: Negative chest allowing for low lung volumes. Head CT 01/09/20 16:08 IMPRESSION: MILD CHRONIC CHANGES OF ATROPHY AND MICROVASCULAR ISCHEMIA. NO ACUTE PROCESS. EVIDENCE OF ACUTE STROKE: NO. Cervical Spine CT 01/10/20 00:00 IMPRESSION: No acute fracture or subluxation. Head CTA 01/10/20 00:00 IMPRESSION: Unremarkable CT angiogram of the neck for age without dissection or hemodynamically significant stenosis. Unremarkable CTA of the brain without evidence of hemodynamically significant stenosis, aneurysm or AVM. CAROTID STENOSIS REFERENCE USING NASCET CRITERIA: % ICA stenosis = (1 - narrowest ICA diameter/diameter of distal cervical ICA) x 100. Mild - <50% stenosis. Moderate - 50-69% stenosis. Severe - 70-94% stenosis. Near occlusion - 95-99% stenosis. Occluded - 100% stenosis. Neck CTA 01/10/20 00:00 IMPRESSION: Unremarkable CT angiogram of the neck for age without dissection or hemodynamically significant stenosis. Unremarkable CTA of the brain without evidence of hemodynamically significant stenosis, aneurysm or AVM. CAROTID STENOSIS REFERENCE USING NASCET CRITERIA: % ICA stenosis = (1 - narrowest ICA diameter/diameter of distal cervical ICA) x 100. Mild - <50% stenosis. Moderate - 50-69% stenosis. Severe - 70-94% stenosis. Near occlusion - 95-99% stenosis. Occluded - 100% stenosis. Plan Plan of Treatment: -follow up with PCP for sleep study and CPAP - also needs a neuro follow up for history of brain cyst Time Spent: Less than 30 Minutes Stroke Is this a Stroke Patient?: No Acute Heart Failure Is this a Heart Failure Patient?: No
== END 2020-01-11 11:16 | disposition home or self-care (01) ==
LOC: ER 16:04 → EH 22:11 → 5 01-10 15:01
PROVIDERS: ADMIT Internal Medicine; ATTEND Internal Medicine
DX: R29.818 Other symptoms and signs involving the nervous system (principal); G93.0 Cerebral cysts; E87.2 Acidosis; G47.33 Obstructive sleep apnea (adult) (pediatric); K22.711 Barrett's esophagus with high grade dysplasia; I48.0 Paroxysmal atrial fibrillation; I25.10 Atherosclerotic heart disease of native coronary artery without angina pectoris; Z23 Encounter for immunization; E03.9 Hypothyroidism, unspecified; D46.4 Refractory anemia, unspecified; I67.81 Acute cerebrovascular insufficiency; E11.22 Type 2 diabetes mellitus with diabetic chronic kidney disease; N18.30 Chronic kidney disease, stage 3 unspecified; R50.9 Fever, unspecified
CPT/HCPCS: 95819 ×2; 93005; 99285; 96360; 96361; 36415 ×2; 87040; 82553; 82962 ×3; 82140; 82607; 82803; 82550; 82728; 82746; 83540; 83550; 83605; 84443; 85025; 85027; 85610; 85730; 82270; 85045; 80048; 80053; 81001; 84484; 80061; 71045; 70450; 70496; 70498; 72125; 90686; 93010; 94660 ×2; 97116; 97162; 97165; G0378 ×3; G0008; A9270 ×27; J3490 ×2; J7030; S0028; 90471

== ENCOUNTER → 2020-03-06 | Outpatient (CLI) | payer MEDICARE ==
--- NOTE | 2020-03-06 17:43 | EKG REPORT ---
SEVERITY:- ABNORMAL ECG - SINUS RHYTHM ANTERIOR INFARCT, AGE INDETERMINATE : Confirmed by: Soco William 06-Mar-2020 17:43:18
== END ==
LOC: OD 09:20 → EDSTATUS 03-09 14:00
PROVIDERS: ATTEND Internal Medicine Gastroenterology
DX: Z01.810 Encounter for preprocedural cardiovascular examination (principal); Z01.812 Encounter for preprocedural laboratory examination; Z20.828 Contact with and (suspected) exposure to other viral communicable diseases
CPT/HCPCS: 93005; 93010; U0003; C9803; 87635